=== PATIENT | female | born 1930 | race Caucasian/White ===

== ENCOUNTER 2018-08-04 21:34 | Inpatient (IN) ==
[2018-08-04] MEDS ORDERED: Sod Chloride 0.9% Inj 1,000 ML IV.CONT SCH (23:45)
[2018-08-04] MEDS ORDERED: Morphine Inj 4 MG/ML Vial IV.PUSH ONE (23:49)
--- NOTE | 2018-08-04 23:58 | ED ---
HPI General Chief Complaint: Abdominal Pain Stated Complaint: Abdominal Pain Time Seen by Provider: 08/04/18 23:49 Source: patient Mode of arrival: EMS Limitations: no limitations History of Present Illness HPI narrative: 87-year-old male presents to the emergency department for complaint of severe abdominal pain since 4 PM since eating boiled peanuts. Patient has had nausea without vomiting. No fever or chills. No chest pain or shortness of breath. Denies any diarrhea or bloody stool. Patient also complains of suprapubic pressure and painful urination. Patient reports history of diverticulitis. Denies history of known abdominal aortic aneurysm. Patient takes Eliquis for heart disease but she does not know what type of heart disease she has. Patient called her primary care provider Dr. Herman who told her to come to the emergency room for evaluation. Patient rates her pain 8 /10 in intensity. Patient states pain is constant and unremitting and sudden onset since 4 PM. Patient is unable to identify exacerbating or alleviating factors but does note that laying supine does increase her pain. MD complaint: Reports abdominal pain Onset (ago): hour(s) (Onset since 4 PM) Pain Consistency: constant Location: Reports diffuse and suprapubic Severity: severe Severity scale (1-10): 8 Quality: Reports aching Radiation: Reports RUQ and suprapubic Migration to: Reports RUQ, epigastric and suprapubic; Denies periumbilical, LUQ and bilateral flank Relieving factors: nothing Exacerbating factors: nothing Context: Reports possible food poisoning; Denies foreign travel, sick contacts, recent antibiotic use, recent surgery/procedure, recent injury and history of similar episodes Associated symptoms: Reports nausea; Denies vomiting, diarrhea, fever, chills, constipation, dysuria, hematemesis, hematochezia, melena, hematuria, anorexia and syncope Treatments prior to arrival: Denies NSAIDs, prescription analgesics and antacids Related Data Home Medications Medication Instructions Recorded Confirmed acetaminophen-codeine 1 tab PO Q6H PRN 08/04/18 08/04/18 [Tylenol-Codeine #3] albuterol sulfate 0.63 mg INHALATION Q4H PRN 08/04/18 08/04/18 alprazolam [Xanax] 0.25 mg PO TID PRN 08/04/18 08/04/18 amlodipine 2.5 mg PO DAILY 08/04/18 08/04/18 apixaban [Eliquis] 5 mg PO BID 08/04/18 08/04/18 magnesium oxide 400 mg PO DAILY 08/04/18 08/04/18 omeprazole 20 mg PO DAILY 08/04/18 08/04/18 Allergies Allergy/AdvReac Type Severity Reaction Status Date / Time azithromycin Allergy Severe HIVES Verified 08/04/18 22:51 cephalexin Allergy Severe HIVES Verified 08/04/18 22:51 dexamethasone Allergy Severe HIVES Verified 08/04/18 22:51 doxycycline Allergy Severe HIVES Verified 08/04/18 22:51 erythromycin base Allergy Severe HIVES Verified 08/04/18 22:51 famotidine Allergy Severe HIVES Verified 08/04/18 22:51 lisinopril Allergy Severe HIVES Verified 08/04/18 22:51 minocycline Allergy Severe HIVES Verified 08/04/18 22:51 penicillin G Allergy Severe HIVES Verified 08/04/18 22:51 tigecycline Allergy Severe HIVES Verified 08/04/18 22:51 MAXIDE Allergy Mild HIVES Uncoded 08/04/18 22:51 Review of Systems ROS: all other systems reviewed are negative PMFSH Medical History Medical History Anxiety (Acute) GERD (gastroesophageal reflux disease) (Acute) Hypertension (Acute) Rectal fistula (Acute) TIA (transient ischemic attack) (Acute) Social History Social History Substance History: No History of Abuse Smoking Status: Never smoker How Often Do You Have a Drink Containing Alcohol: Never Recent Travel in [place] within the Last 8 Weeks: No Recent Out of Country Travel within the Last 8 Weeks: No Immunization History Tetanus Immunization: Unsure Exam Narrative Exam Narrative: GENERAL: Well-nourished, well-developed patient. In apparent discomfort holding her abdomen complaining of lower abdominal pain over the suprapubic area. GCS 15. SKIN: Focused skin assessment warm/dry. HEAD: Normocephalic. EYES: No scleral icterus. No injection or drainage. NECK: Supple, trachea midline. No JVD or lymphadenopathy. CARDIOVASCULAR: Regular rate and rhythm without murmurs, gallops, or rubs. RESPIRATORY: Breath sounds equal bilaterally. No accessory muscle use. GASTROINTESTINAL: Abdomen soft, suprapubic tenderness greater than diffuse tenderness to palpation without guarding or rebound non-tense enlarged abdominal girth no palpable pulsatile mass, nondistended. MUSCULOSKELETAL: No cyanosis, or edema. Bilateral radial dorsalis pedis pulses 2+ to palpation. BACK: Nontender without obvious deformity. No CVA tenderness. Course Initial Documented Vital Signs Temperature 97.6 F 08/04/18 22:16 Pulse Rate 64 08/04/18 22:16 Respiratory Rate 20 08/04/18 22:16 Blood Pressure 182/77 H 08/04/18 22:16 Pulse Oximetry 93 L 08/04/18 22:16 Last Documented Vital Signs Temperature 97.6 F 08/04/18 22:16 Pulse Rate 64 08/04/18 22:16 Respiratory Rate 20 08/04/18 22:16 Blood Pressure 182/77 H 08/04/18 22:16 Pulse Oximetry 93 L 08/04/18 22:16 Medical Decision Making MDM Narrative Medical decision making narrative: 87-year-old female with history of hypertension heart disease taking Eliquis twice daily presents with severe abdominal pain progressively worsening since 4 PM. Patient reports symptoms onset after eating peanuts with history of diverticulitis. Patient placed on cardiac rehabilitation specialist IV access obtained specimens collected and sent for resulting upright chest x-ray ordered to assess for subdiaphragmatic free air CT abdomen pelvis ordered patient administered Zofran 4 mg IV and morphine sulfate 2 mg IV room air O2 saturation 93% patient has history of COPD placed on 2 L/min nasal cannula oxygen. Patient given 2 mg of morphine with some improvement and she will present. Patient has COPD and uses supplemental oxygen at night reportedly and O2 saturation noted after morphine to be 88-89% placed on supplemental oxygen with 2 L/min nasal cannula and O2 saturations 94%. CT abdomen pelvis pending. CT abdomen pelvis identifies proximal ileum to be dilated and thickened, small bowel obstruction per reading radiologist; urinalysis unremarkable Patient's case discussed with her primary care provider Dr. Rajeev Herman who will admit her for small bowel obstruction history of atrial fibrillation on Eliquis will place on telemetry as no nausea or vomiting at this time per admitting physician requested for NG tube. Medical Screen Exam Complete: Yes Emergency Medical Condition: Yes Differential Diagnosis Differential Diagnosis: Abdominal pain, diverticulitis, colitis, perforated viscus, ischemic bowel, biliary colic, cholecystitis, pancreatitis, UTI Medical Records Medical records reviewed: Yes I reviewed the patient's medical records. Lab Data Lab results reviewed: Yes I reviewed the patient's lab results. Result diagrams: 08/05/18 00:00 08/05/18 00:00 Lab Results 08/05/18 08/05/18 08/05/18 Range/Units 00:00 00:00 00:00 WBC (4.0-11.0) th/mm3 RBC (4.00-5.30) mil/mm3 Hgb (11.6-15.3) gm/dL Hct (35.0-46.0) % MCV (80.0-100.0) fL MCH (27.0-34.0) pg MCHC (32.0-36.0) % RDW (11.6-17.2) % Plt Count (150-450) th/mm3 MPV (7.0-11.0) fL Neut % (Auto) (16.0-70.0) % Lymph % (Auto) (9.0-44.0) % [place] % (Auto) (0.0-8.0) % Eos % (Auto) (0.0-4.0) % Baso % (Auto) (0.0-2.0) % Neut # (Auto) (1.8-7.7) th/mm3 Lymph # (Auto) (1.0-4.8) th/mm3 [place] # (Auto) (0.0-0.9) th/mm3 Eos # (Auto) (0.0-0.4) th/mm3 Baso # (Auto) (0.0-0.2) th/mm3 WBC Differential Differential Comment PT 12.6 H (9.8-11.6) sec INR 1.2 Ratio APTT 28.3 (24.3-30.1) sec Sodium (136-145) meq/L Potassium (3.5-5.1) meq/L Chloride (98-107) meq/L Carbon Dioxide (21.0-32.0) meq/L Anion Gap (5-15) meq/L BUN (7-18) mg/dL Creatinine (0.50-1.00) mg/dL Estimated GFR (>89) mL/min Random Glucose (74-106) mg/dL Lactic Acid 1.1 (0.4-2.0) mmol/L Calcium (8.5-10.1) mg/dL Magnesium (1.5-2.5) mg/dL Total Bilirubin (0.2-1.0) mg/dL AST (15-37) U/L ALT (10-53) U/L Alkaline Phosphatase (45-117) U/L Total Creatine Kinase (26-192) U/L Troponin I (0.02-0.05) ng/mL Total Protein (6.4-8.2) g/dL Albumin (3.4-5.0) g/dL Lipase (73-393) U/L Urine Color (Yellw/Straw) Urine Clarity (Clear) Urine pH (5.0-8.5) Ur Specific [place] (1.002-1.035) Urine Protein (Neg-Trace) mg/dL Urine Glucose (UA) (Negative) mg/dL Urine Ketones (Negative) mg/dL Urine Occult Blood (Negative) Urine Nitrate (Negative) Urine Bilirubin (Negative) Urine Urobilinogen (Less than 2) mg/dL Ur Leukocyte Esterase (Negative) Urine WBC (0-5) /hpf Ur Squamous Epith Cells (0-5) /hpf Urine Bacteria (None) /hpf Hyaline Casts (0-3) /lpf Urine Mucus (Occasional) /lpf Micro UA Comment Urine Culture Comments Blood Type O Positive Blood Type Recheck Required Antibody Screen Negative 08/05/18 08/05/18 08/05/18 Range/Units 00:00 00:00 00:09 WBC 10.4 (4.0-11.0) th/mm3 RBC 4.87 (4.00-5.30) mil/mm3 Hgb 14.4 (11.6-15.3) gm/dL Hct 43.0 (35.0-46.0) % MCV 88.3 (80.0-100.0) fL MCH 29.5 (27.0-34.0) pg MCHC 33.5 (32.0-36.0) % RDW 17.1 (11.6-17.2) % Plt Count 219 (150-450) th/mm3 MPV 11.0 (7.0-11.0) fL Neut % (Auto) 93.6 H (16.0-70.0) % Lymph % (Auto) 5.2 L (9.0-44.0) % [place] % (Auto) 1.0 (0.0-8.0) % Eos % (Auto) 0.1 (0.0-4.0) % Baso % (Auto) 0.1 (0.0-2.0) % Neut # (Auto) 9.7 H (1.8-7.7) th/mm3 Lymph # (Auto) 0.5 L (1.0-4.8) th/mm3 [place] # (Auto) 0.1 (0.0-0.9) th/mm3 Eos # (Auto) 0.0 (0.0-0.4) th/mm3 Baso # (Auto) 0.0 (0.0-0.2) th/mm3 WBC Differential . Differential Comment Auto diff final PT (9.8-11.6) sec INR Ratio APTT (24.3-30.1) sec Sodium 134 L (136-145) meq/L Potassium 4.1 (3.5-5.1) meq/L Chloride 96 L (98-107) meq/L Carbon Dioxide 28.3 (21.0-32.0) meq/L Anion Gap 10 (5-15) meq/L BUN 19 H (7-18) mg/dL Creatinine 0.87 (0.50-1.00) mg/dL Estimated GFR 62 L (>89) mL/min Random Glucose 137 H (74-106) mg/dL Lactic Acid (0.4-2.0) mmol/L Calcium 9.5 (8.5-10.1) mg/dL Magnesium 1.9 (1.5-2.5) mg/dL Total Bilirubin 1.0 (0.2-1.0) mg/dL AST 17 (15-37) U/L ALT 22 (10-53) U/L Alkaline Phosphatase 102 (45-117) U/L Total Creatine Kinase 82 (26-192) U/L Troponin I Less than 0.02 L (0.02-0.05) ng/mL Total Protein 8.4 H (6.4-8.2) g/dL Albumin 4.0 (3.4-5.0) g/dL Lipase 78 (73-393) U/L Urine Color Light-yellow (Yellw/Straw) Urine Clarity Clear (Clear) Urine pH 7.5 (5.0-8.5) Ur Specific [place] 1.026 (1.002-1.035) Urine Protein 30 H (Neg-Trace) mg/dL Urine Glucose (UA) Negative (Negative) mg/dL Urine Ketones 15 H (Negative) mg/dL Urine Occult Blood Negative (Negative) Urine Nitrate Negative (Negative) Urine Bilirubin Negative (Negative) Urine Urobilinogen 0.2 (Less than 2) mg/dL Ur Leukocyte Esterase Negative (Negative) Urine WBC 0-5 (0-5) /hpf Ur Squamous Epith Cells 0-5 (0-5) /hpf Urine Bacteria Few H (None) /hpf Hyaline Casts 0-3 (0-3) /lpf Urine Mucus Few H (Occasional) /lpf Micro UA Comment Culture not ind Urine Culture Comments Culture not ind Blood Type Blood Type Recheck Antibody Screen Imaging Data Radiologist's impression: Chest X-Ray 08/05/18 00:00 CONCLUSION: No acute cardiopulmonary disease demonstrated. Mild chronic interstitial opacities are stable. Abdomen/Pelvis CT 08/05/18 23:49 CONCLUSION: 1. Approximately 10 cm long segment of severe wall thickening involving the proximal ileum within the pelvic cavity and with associated acute small bowel obstruction. The etiology of wall thickening is uncertain. Infectious, inflammatory and neoplastic etiologies are all in the differential. 2. Associated trace ascites. Nothing organized or drainable. No free air. 3. Diverticulosis of the colon without diverticulitis. 4. Patchy cortical thinning/scarring and cysts of both kidneys. There are also nonobstructing stones of the right kidney. 5. Bilateral adrenal nodularity, indeterminate but statistically most likely benign adenomatous change. 6. Aortoiliac atherosclerosis. No aneurysm seen. 7. Trace lung base atelectasis. 8. Coronary artery calcification. Visualized heart appears enlarged, mostly the left atrium. 9. Small hiatal hernia. Discharge Plan Discharge Disposition Patient Disposition: 30 Still Patient Discharge Condition Condition: Stable Discharge Details Diagnosis: Small bowel obstruction, Ileitis Physicians Team ED Provider: Tita Condon Primary Care Provider: Rajeev Herman Attending Provider: Rajeev Herman Status ED Status: Admitted Patient
[2018-08-05 00:21] LABS: Baso % (Auto) 0.1 % (0.0-2.0); Eos % (Auto) 0.1 % (0.0-4.0); Hemoglobin 14.4 gm/dL (11.6-15.3); Lymph # (Auto) 0.5 th/mm3 (1.0-4.8); Lymph % (Auto) 5.2 % (9.0-44.0); Mean Corpuscular HGB Conc 33.5 % (32.0-36.0); Mean Corpuscular Hemoglobin 29.5 pg (27.0-34.0); Mean Corpuscular Volume 88.3 fL (80.0-100.0); Mono # (Auto) 0.1 th/mm3 (0.0-0.9); Neut # (Auto) 9.7 th/mm3 (1.8-7.7); Neut % (Auto) 93.6 % (16.0-70.0); Platelet Count 219 th/mm3 (150-450); Red Blood Count 4.87 mil/mm3 (4.00-5.30); Red Cell Distribution Width 17.1 % (11.6-17.2); White Blood Count 10.4 th/mm3 (4.0-11.0)
[2018-08-05 00:34] LABS: Activated Partial Thrombo Time 28.3 sec (24.3-30.1); INR 1.2 Ratio; Prothrombin Time 12.6 sec (9.8-11.6)
[2018-08-05 00:39] LABS: Alanine Aminotransferase 22 U/L (10-53); Anion Gap 10 meq/L (5-15); Aspartate Aminotransferase 17 U/L (15-37); Blood Urea Nitrogen 19 mg/dL (7-18); Calcium 9.5 mg/dL (8.5-10.1); Carbon Dioxide 28.3 meq/L (21.0-32.0); Chloride 96 meq/L (98-107); Glomerular Filtration Rate 62 mL/min (>89); Glucose,Random 137 mg/dL (74-106); Lipase 78 U/L (73-393); Magnesium 1.9 mg/dL (1.5-2.5); Potassium 4.1 meq/L (3.5-5.1); Sodium 134 meq/L (136-145)
[2018-08-05 00:43] LABS: Alkaline Phosphatase 102 U/L (45-117); Total Protein 8.4 g/dL (6.4-8.2)
--- NOTE | 2018-08-05 00:45 | XR ---
EXAM DATE: 08/05/2018 12:27 AM EDT AGE/SEX: 87 years / Female INDICATIONS: Low abdomen and pelvic pain. CLINICAL DATA: This is the patient's initial encounter. Patient reports that signs and symptoms have been present for 1 day and indicates a pain score of 0/10. MEDICAL/SURGICAL HISTORY: None. None. COMPARISON: [facility], XR CHEST UPRIGHT, SINGLE VIEW, 10/21/2017. . FINDINGS: Mild, chronic diffuse interstitial opacities involving both lungs. No acute pneumonia. No pleural eff usion or pneumothorax. Heart size stable, upper limits of normal. Thoracic aorta is tortuous and atherosclerotic. CONCLUSION: No acute cardiopulmonary disease demonstrated. Mild chronic interstitial opacities are stable. Electronically signed by: Fidel Washington MD 08/05/2018 12:44 AM EDT
[2018-08-05 00:50] LABS: Creatine Kinase 82 U/L (26-192)
--- NOTE | 2018-08-05 01:33 | CT ---
EXAM DATE: 08/05/2018 1:13 AM EDT AGE/SEX: 87 years / Female INDICATIONS: Abdominal pain with nausea and vomiting. CLINICAL DATA: This is the patient's initial encounter. Patient reports that signs and symptoms have been present for 1 day and indicates a pain score of 10/10. MEDICAL/SURGICAL HISTORY: Gastroesophageal reflux disease. Hypertension. Cerebrovascular dise ase. None. ORAL CONTRAST: No oral contrast ingested. RADIATION DOSE: 12.60 CTDI (mGy) COMPARISON: No prior exams available for comparison. TECHNIQUE: Multiple contiguous axial images were obtained through the abdomen and pelvis following b olus infusion of 90 ml Omnipaque 350 (iohexol) nonionic water-soluble contrast as a single exam dos e. No oral contrast ingested. Using automated exposure control and adjustment of the mA and/or kV ac cording to patient size, radiation dose was kept as low as reasonably achievable to obtain optimal di agnostic quality images. DICOM format image data is available electronically for review and comparis on. FINDINGS: There is an acute small bowel obstruction that appears to be at the level of the proximal ileum. Ther e is a roughly 10 cm long segment of thick walled ileum in the mid to upper central pelvic cavity, se luis a 2 image 53 and series 602 image 62. The distal ileum is decompressed. The colon is decompressed. There are diverticula of the descending and sigmoid portions of the colon but no diverticulitis. Mes enteric edema and trace ascites/free fluid present. Nothing organized or drainable. I don't see any f ree air. Normal appendix. Small hiatal hernia. The liver, spleen and pancreas are within normal limits. There is bilateral adrenal nodularity. Patch y cortical thinning/scarring and scattered cysts are seen of both kidneys. Most of the cysts are smal l but there is a 4.6 cm cyst of the left mid zone. There are nonobstructing stones of the right kidne y and measure 3 mm of the upper pole and 6 mm of the mid zone. Trace atelectasis of the visualized lung bases. There is coronary artery calcification. Also atherosc lerosis of the abdominal aorta and iliac arteries. No acute bony abnormality demonstrated. CONCLUSION: 1. Approximately 10 cm long segment of severe wall thickening involving the proximal ileum within th e pelvic cavity and with associated acute small bowel obstruction. The etiology of wall thickening is uncertain. Infectious, inflammatory and neoplastic etiologies are all in the differential. 2. Associated trace ascites. Nothing organized or drainable. No free air. 3. Diverticulosis of the colon without diverticulitis. 4. Patchy cortical thinning/scarring and cysts of both kidneys. There are also nonobstructing stones of the right kidney. 5. Bilateral adrenal nodularity, indeterminate but statistically most likely benign adenomatous mims ge. 6. Aortoiliac atherosclerosis. No aneurysm seen. 7. Trace lung base atelectasis. 8. Coronary artery calcification. Visualized heart appears enlarged, mostly the left atrium. 9. Small hiatal hernia. Electronically signed by: Fidel Washington MD 08/05/2018 1:32 AM EDT
[2018-08-05] MEDS ORDERED: Naloxone Inj 0.4 MG/ML Vial IV.PUSH PRN (02:03)
[2018-08-05] MEDS ORDERED: Morphine Inj 4 MG/ML Vial IV.PUSH ONE (02:06)
[2018-08-05 02:14] LABS: Bilirubin,Urine Negative (Negative); Clarity,Urine Clear (Clear); Glucose,Urine (UA) Negative (Negative); Leukocyte Esterase,Urine Negative (Negative); Nitrite,Urine Negative (Negative); PH,Urine 7.5 (5.0-8.5); Urobilinogen,Urine 0.2 mg/dL (Less than 2)
[2018-08-05 02:57] LABS: Bacteria,Urine Few /hpf; Specific Gravity,Urine 1.026 (1.002-1.035); Squamous Epithelial Cell,Urine 0-5 /hpf (0-5); WBC,Urine 0-5 /hpf (0-5)
[2018-08-05 02:58] LABS: Hyaline Casts,Urine 0-3 /lpf (0-3)
[2018-08-05 02:59] LABS: Mucus,Urine Few /lpf (Occasional)
[2018-08-05] MEDS: Sod Chloride 0.9% Inj 1,000 ML IV.CONT SCH ×2 (03:18→13:40)
[2018-08-05] MEDS: Pantoprazole Inj 40 MG Vial IV.PUSH SCH (03:19)
[2018-08-05] MEDS: Morphine Inj 4 MG/ML Vial IV.PUSH PRN ×3 (06:34→21:00)
[2018-08-05] MEDS ORDERED: Labetalol HCl Inj 100 MG/20 ML Vial IV.PUSH PRN (09:17)
[2018-08-05] MEDS ORDERED: Sodium Chloride 0.9% 2 ML Flush PRN IV.FLUSH (09:25)
--- NOTE | 2018-08-05 09:26 | CT ---
EXAM DATE: 08/05/2018 7:35 AM EDT AGE/SEX: 87 years / Female INDICATIONS: Abdominal pain, obstruction CLINICAL DATA: This is the patient's initial encounter. Patient reports that signs and symptoms have been present for 1 day and indicates a pain score of 7/10. MEDICAL/SURGICAL HISTORY: Gastroesophageal reflux disease. Cerebrovascular disease. None. RADIATION DOSE: . CTDI (mGy) ; Reconstructed from previous dataset, no dose COMPARISON: [facility] [place], [place], CT ABDOMEN & PELVIS W CONTRAST, 08/05/2018. . TECHNIQUE: Volumetric scanning was performed using a multi-row detector CT scanner during bolus infu pascale of 100 ml Omnipaque 350 (iohexol) nonionic water-soluble contrast as a cumulative dose for [facility] exams. . The data was post processed with a variety of visualization algorithms including full volume maximum intensity projection, multi-planar sliding thin slab reformation, curved planar reform ation, and surface rendering techniques. Using automated exposure control and adjustment of the mA a nd/or kV according to patient size, radiation dose was kept as low as reasonably achievable to obtain optimal diagnostic quality images. DICOM format image data is available electronically for review a nd comparison. FINDINGS: Angiographic Findings: Abdominal Aorta: Diffuse arthroscopic calcifications of the infrarenal aorta with focal mild ectasia measuring up to 1.8 cm distally. Iliacs: Iliac arteries are heavily calcified with tandem mild stenoses in the common iliac and proxim al external iliac arteries bilaterally. Hypogastrics are diffusely diseased but patent. Visualized fe moral arteries are patent. Renal Arteries: Single left renal artery. Duplicated right renal arteries. Mild stenosis of the poste rior right renal artery. Otherwise, renal arteries are patent. Mesenteric Arteries: Celiac artery is patent with standard celiac anatomy. 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 LFETCHER is patent. General Findings: LOWER LUNGS: The visualized lower lungs are clear. LIVER: Mild diffusely decreased hepatic density with subcentimeter hypodense lesions in the left hep atic lobe which are too small to characterize. No calcified gallstones. SPLEEN: Homogeneous density without enlargement. PANCREAS: Unremarkable without mass or calcification. KIDNEYS: Multiple bilateral renal cysts some of which are too small to fully characterize. Nonobstru cting 4 mm calyceal calculus in the posterior right mid kidney. ADRENAL GLANDS: Adreniform enlargement of the regional glands bilaterally. BOWEL/MESENTERY: Abnormal. Redemonstration of multiple loops of fluid-filled distended small bowel i n the lower abdomen with a focal sacral segment of ileum in the mid to upper central pelvis. There is no pneumatosis or free air. There is prominent colonic diverticulosis. Otherwise, colon is decompres sed but does contain air and feces. Appendix is normal. There is no focal drainable fluid collection. Trace free fluid is noted in the pelvis. ABDOMINAL WALL: Intact. RETROPERITONEUM: No evidence of adenopathy in the retrocrural, para-aortic, or deep pelvic regions. BLADDER: Contours are smooth. REPRODUCTIVE: No abnormal masses or calcifications seen. BONY STRUCTURES: Degenerative changes of the lower lumbar spine. No abnormal lytic or blastic bony l esions. CONCLUSION: 1. 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 Celiac and FLETCHER are patent. Central SMV and portal ve in are patent. Therefore, mesenteric ischemia as an etiology for patient's small bowel obstruction an d proximal ileitis is unlikely. 2. 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 3. Remainder of the exam is unchanged from earlier abdominal CT exam with redemonstration of acute s mall bowel obstruction secondary to severe wall thickening involving the proximal ileum in the centra l pelvis. No evidence for perforation, bowel infarction or abscess at this time. Electronically signed by: Sam Stockton MD 08/05/2018 9:25 AM EDT
--- NOTE | 2018-08-05 10:09 | MH ---
cc: Rajeev Herman MD DATE OF ADMISSION: 08/05/2018 CHIEF COMPLAINT: Abdominal pain, nausea, vomiting, small-bowel obstruction. HISTORY OF PRESENT ILLNESS: This 87-year-old white female well-known to undersigned physician has a history of chronic atrial fibrillation, hypertension, gastroesophageal reflux disease, and COPD. The patient contacted the undersigned physician on the evening prior to admission complaining of abdominal pain that began approximately noontime on the day prior to admission. She states that she had abdominal pain in the suprapubic and periumbilical area and with waves of which would come and go. It was an intense cramping pain. She had some initial nausea, but no emesis. She had eaten some boiled peanuts just prior to the onset of the symptoms but otherwise she had not eaten anything that day. The patient reported that she had a bowel movement on the day prior to admission, which was normal without any blood, mucus, any diarrhea or constipation. The patient's symptoms continued to worsen throughout the day and she had 3 episodes of emesis at home. At that time, she was instructed to present to the emergency department for further evaluation and treatment. She denies any fever or chills, but she felt warm and diaphoretic. She has no chest pain, palpitations, lightheadedness, dizziness, headaches, visual changes, lateralizing neurologic deficits, urinary urgency, or dysuria. She had no hematuria, hemoptysis, hematemesis, melena, or hematochezia. The patient does have chronic urinary incontinence. 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 She has chronic atrial fibrillation/flutter, hyperlipidemia, GERD, diverticulosis, and hypothyroidism. PAST SURGICAL HISTORY: Status post a D and C in 1997. She had bilateral cataract removal with lens implants in 2016. CURRENT MEDICATIONS: B complex 1 tablet daily, calcium with vitamin D 500 mg/200 units 1 tablet daily, magnesium oxide 400 mg daily, levothyroxine 50 mcg daily, Eliquis 5 mg twice daily, digoxin 0.125 mg twice daily, amlodipine 2.5 mg daily, albuterol sulfate 2.5 mg per 3 mL at 3 mL by nebulizer 3 times a day as needed, omeprazole 20 mg daily, alprazolam 0.25 mg 1/2 to 1 tablet 3 times a day as needed for anxiety, and Tylenol No. 3 one to 2 tablets 3 times a day as needed for arthritic pain. ALLERGIES: AMPICILLIN, AXID, CEPHALEXIN, DEXAMETHASONE, ERYTHROMYCIN, LISINOPRIL, DYAZIDE, PEPCID, AND TETRACAINE. FAMILY HISTORY: Noncontributory. SOCIAL HISTORY: She is . She lives alone. She smoked at least 1 pack of cigarettes a day for over 50 years. She has not smoked in almost 5 years. She does not consume alcohol. She has a son who lives locally. REVIEW OF SYSTEMS: Negative except as outlined above. PHYSICAL EXAMINATION: VITAL SIGNS: Upon arrival to the emergency department, the patient's blood pressure is 182/77 with a heart rate of 64, respirations are 20, temperature 97.6 degrees Fahrenheit, oxygen saturation on room air was 93%. At the current time, her blood pressure is 171/96 with a heart rate 74, respirations 18, oxygen saturation 100% on 2 liters per minute per nasal cannula. GENERAL: This is an overweight, elderly, white female lying in bed in mild distress due to abdominal discomfort. HEENT: The pupils are equal, round, and reactive to light. Extraocular movements are intact. Sclerae are anicteric. Conjunctivae pink. Bilateral lens implants in place. Mouth and throat reveal dry mucous membranes. No dentition present. Posterior oropharynx reveals no erythema or exudates. NECK: Supple without lymphadenopathy, JVD, bruits, or thyromegaly. There is straightening of the normal lordosis of the cervical spine with decreased range of motion in all directions. CARDIOVASCULAR: Shows irregular rate and rhythm without murmurs, rubs, or gallops. LUNGS: Reveal moderately reduced air exchange bilaterally, but no wheezes, rhonchi, or rales. ABDOMEN: Moderately distended and tender in the periumbilical area extending into the suprapubic area. There are no bowel sounds present. No masses. The abdomen is soft. No HSM. No CVAT. GENITOURINARY AND RECTAL: Deferred. LOWER EXTREMITIES: Reveal 1+ distal pulses. No calf tenderness or Homans sign. SKIN: Warm and dry. No significant rashes or lesions. Turgor good. No pallor. NEUROLOGIC: The patient is awake and alert, oriented x 3. Speech intact. Cranial nerves intact. There is some mild short-term memory deficits for what has occurred since being in the emergency department, but the patient has received morphine several times. Otherwise, mental status is at baseline. DIAGNOSTIC DATA: Her white blood count is 10.4, hemoglobin 14.4, hematocrit 43.0, platelet count 219,000. INR 1.2. APTT 28.3. The chemistries were significant for sodium 134, chloride 96, BUN 19, which is elevated with a creatinine normal at 0.87. Estimated GFR is 62. The total protein was high at 8.4, but albumin normal at 4.0. Troponin was less than 0.02. CK was 82, which was within normal limits. Lactic acid was 1.1. Urinalysis revealed a specific gravity of 1.026, pH of 7.5, 30 mg percent protein, 50 mg percent ketones, 0-5 WBCs per high power field, few bacteria. Culture was not indicated. The patient had a CT scan of the abdomen and pelvis with IV contrast only. It revealed approximately 10 cm long segment of severe wall thickening involving the proximal ileum within the pelvic cavity and with associated acute small-bowel obstruction. The etiology of wall thickening is uncertain. Infectious inflammatory, and neoplastic etiologies are all in the differential. There was trace ascites, diverticulosis without diverticulitis, patchy cortical thinning and scarring and cysts in both kidneys. There are also nonobstructing stones in the right kidney. Bilateral adrenal nodularity, which was indeterminate and aortoiliac atherosclerosis, but no aneurysm seen. There was trace lung base atelectasis, coronary artery calcifications. The heart visually appeared enlarged and there was a small hiatal hernia. The chest x-ray revealed no acute cardiopulmonary disease. There are mild chronic diffuse interstitial opacities involving both lungs. The heart size was stable in the upper limits of normal. A CTA of the abdomen and pelvis is pending at this time. ASSESSMENT AND PLAN: 1. This 87-year-old white female who presented with abdominal pain, nausea, and vomiting. CT scan reveals a 10 cm segment of the proximal ileum with significant wall thickness and a proximal small-bowel obstruction. Possible etiologies include ischemia versus infection versus malignancy. Since the patient has a normal white blood cell count and no fever, it is less likely to be infectious in etiology. The patient does have a significant smoking history and evidence of aortoiliac atherosclerosis; therefore, ischemia of the small bowel is a possibility. I have ordered the CTA of the abdomen and pelvis and am awaiting the results. I have consulted gastroenterology for assistance with further evaluation and treatment. The patient was made n.p.o. and provided with IV fluids. She is provided with antiemetics and opioid analgesics for nausea and pain. I have not placed an NG tube at this time as she does not have significant distention of the small bowel and has had no repeated emesis. May need to consider a general surgery consultation if ischemia is suspected. 2. History of chronic obstructive pulmonary disease. The patient will remain on oxygen at 2 liters per minute per nasal cannula. She normally wears the oxygen at night every night. She will be continued with albuterol nebulizer treatments and will monitor respiratory status closely. 3. History of chronic atrial fibrillation. The patient clinically is in atrial fibrillation with controlled ventricular response. Eliquis has been held since yesterday morning. We will hold off on anticoagulation at this time until it is determined if the patient will need any sort of surgical intervention. The patient normally receives digoxin orally. Her current heart rate is 74. We will order a digoxin level to be performed and provide IV digoxin if needed. 4. Gastroesophageal reflux disease. The patient will be placed on pantoprazole IV until she can take p.o. again. 5. Hypothyroidism. Hold levothyroxine for now. If patient is going to be n.p.o. for a prolonged period of time, we will need to consider IV levothyroxine. 6. Hypertension. Blood pressure has been variable anywhere between 120 and 180 systolic, depending on the patient's level of pain and distress. SHE DOES NOT TOLERATE HELIO INHIBITORS DUE TO RASH. At this point, we will follow blood pressure, if necessary provide her with clonidine patch. We will provide the patient with IV beta gerda if needed for hypertension, we will need to monitor heart rate closely to prevent any bradycardia. I have explained the patient's condition and plan of care to her. She expresses understanding and agrees to the plan of care. MD AIDEE Ford/mikala , 09:13 AM , 09:32 AM
--- NOTE | 2018-08-05 16:26 | ECG ---
Date Performed: 08/05/2018 Time Performed: 03:31:09 PTAGE: 87 years EKG: ATRIAL FIBRILLATION MODERATE INTRAVENTRICULAR CONDUCTION DELAY NONSPECIFIC ST & T-WAVE ABNO RMALITY ABNORMAL RHYTHM ECG PREVIOUS TRACING : 04/05/2015 20.11 Since the previous tracing, no significant change noted DOCTOR: Ignacio Meyers Interpretating Date/Time 08/05/2018 16:25:44
--- NOTE | 2018-08-05 17:19 | P.CONGS ---
[facility] Gen Surgery Consult Note Consult date: 08/05/18 Reason for consult: abdominal pain Requesting physician: Rajeev Herman Narrative: This is an 87 year old female with a past medical history of atrial fibrillation on Eliquis, AAA, hypertension, TIA, rectal fistula repair, GERD and anxiety. The patient came to the ED after she developed acute onset of abdominal pain about 4PM on Thursday. The patient states that she made boiled peanuts and ate a lot and developed the abdominal pain shortly after that. She reports associated nausea with three episodes of vomiting. She reports chills without fevers. Her last bowel movement was Thursday morning and it was normal , soft and brown. A CT abdomen/pelvis was obtained which shows a 10 CM segment of severe wall thickening involving the proximal ileum in the pelvic cavity with associated small bowel obstruction. A CTA of the abdomen was obtained that is concerning for mesenteric ischemia. The patient was started on IVF. Her lactic acid is normal. On exam, the patient is comfortable with much less abdominal pain than when she arrived to the ED. A General Surgery consultation has been requested. Review of Systems All other systems reviewed negative except as stated in [facility] PMF[facility] - History History Provided By: Patient - Medical History Medical History: Medical History (Last Reviewed 08/05/18 @ 17:14 by BRITTANIE Martinez) Anxiety GERD (gastroesophageal reflux disease) Hypertension Rectal fistula TIA (transient ischemic attack) - Surgical History Surgical History: Surgical History (Last Updated 08/05/18 @ 17:14 by BRITTANIE Martinez) History of tonsillectomy - Tobacco History Second Hand Smoke Exposure: No Smoking Status: Former smoker Tobacco Type: Cigarettes - Alcohol History How Often Do You Have a Drink Containing Alcohol: Never - Substance Use History Substance History: No History of Abuse - Travel History Recent Travel in the [place] Within the Last 8 Weeks: No Recent Travel Out of the Country Within the Last 8 Weeks: No - Immunization History Tetanus Immunization: Unsure Hx Influenza Vaccine This Season: No Medications and Allergies Allergies Allergy/AdvReac Type Severity Reaction Status Date / Time azithromycin Allergy Severe HIVES Verified 08/04/18 22:51 cephalexin Allergy Severe HIVES Verified 08/04/18 22:51 dexamethasone Allergy Severe HIVES Verified 08/04/18 22:51 doxycycline Allergy Severe HIVES Verified 08/04/18 22:51 erythromycin base Allergy Severe HIVES Verified 08/04/18 22:51 famotidine Allergy Severe HIVES Verified 08/04/18 22:51 lisinopril Allergy Severe HIVES Verified 08/04/18 22:51 minocycline Allergy Severe HIVES Verified 08/04/18 22:51 penicillin G Allergy Severe HIVES Verified 08/04/18 22:51 tigecycline Allergy Severe HIVES Verified 08/04/18 22:51 MAXIDE Allergy Mild HIVES Uncoded 08/04/18 22:51 Home Medications Medication Instructions Recorded Confirmed Type acetaminophen-codeine 1 tab PO Q6H PRN 08/04/18 08/04/18 History [Tylenol-Codeine #3] albuterol sulfate 0.63 mg INHALATION Q4H PRN 08/04/18 08/04/18 History alprazolam [Xanax] 0.25 mg PO TID PRN 08/04/18 08/04/18 History magnesium oxide 400 mg PO DAILY 08/04/18 08/04/18 History omeprazole 20 mg PO DAILY 08/04/18 08/04/18 History Active Medications: Active Medications Albuterol (Albuterol Neb (Ciaran)) 2.5 mg NEB TID NEB CIARAN Last Admin: 08/05/18 12:22 Dose: 2.5 mg Sodium Chloride (Ns Inj) 1,000 mls @ 100 mls/hr IV.CONT .Q10H CIARAN Last Admin: 08/05/18 13:40 Dose: 100 mls/hr Labetalol HCl (Trandate Inj) 10 mg IV.PUSH Q4H PRN PRN Reason: SBP>180, DBP>100, HR>65 Last Admin: 08/05/18 09:35 Dose: 10 mg Morphine Sulfate (Morphine Inj) 1 mg IV.PUSH Q3H PRN PRN Reason: PAIN 3-5; IF UABLE TO TAKE PO Morphine Sulfate (Morphine Inj) 3 mg IV.PUSH Q3H PRN PRN Reason: PAIN 6-10;IF UNABLE TO TAKE PO Last Admin: 08/05/18 09:34 Dose: 3 mg Naloxone HCl (Narcan Inj) 0.4 mg IV.PUSH UNSCH PRN PRN Reason: SEE LABEL COMMENTS Ondansetron HCl (Zofran Inj) 4 mg IV.PUSH Q6H PRN PRN Reason: NAUSEA OR VOMITING Pantoprazole Sodium (Protonix Inj) 40 mg IV.PUSH Q24H CIARAN Last Admin: 08/05/18 03:19 Dose: 40 mg Sodium Chloride (Ns Flush) 2 ml IV.FLUSH BID CIARAN Sodium Chloride (Ns Flush) 2 ml IV.FLUSH PRN PRN PRN Reason: FLUSH AFTER USING IV ACCESS Exam Vital signs: Vital Signs 08/04/18 22:16 08/05/18 03:20 08/05/18 03:21 Temperature 97.6 F Pulse Rate 64 72 Respiratory Rate 20 16 Blood Pressure 182/77 H 125/73 Pulse Oximetry 93 L 100 100 08/05/18 05:53 08/05/18 07:25 08/05/18 09:00 Temperature Pulse Rate 74 80 Respiratory Rate 18 22 Blood Pressure 171/96 H 192/88 H Pulse Oximetry 98 95 08/05/18 09:30 08/05/18 09:42 08/05/18 12:00 Temperature 97.6 F Pulse Rate 56 L Respiratory Rate 17 Blood Pressure 209/87 H 139/65 121/70 Pulse Oximetry 97 08/05/18 12:24 Temperature Pulse Rate 80 Respiratory Rate 16 Blood Pressure Pulse Oximetry Intake & Output 08/04/18 08/05/18 08/05/18 18:59 06:59 18:59 Intake Total 1999 Balance 1999 Weight 79.379 kg Intake: IV 1999 NS Inj 1,000 ML @ 100 mls/hr IV 1999 .CONT .Q10H CIARAN Rx#:[id number] Other: Date of Last Bowel Movement 08/04/18 Narrative: GENERAL: 87 year old female resting in bed in no acute distress. SKIN: Warm and dry. HEAD: Atraumatic. Normocephalic. EYES: Pupils equal and round. No scleral icterus. No injection or drainage. ENT: No nasal bleeding or discharge. Mucous membranes pink and moist. NECK: Trachea midline. CARDIOVASCULAR: Regular rate and rhythm. RESPIRATORY: No accessory muscle use. Clear to auscultation. Breath sounds equal bilaterally. GASTROINTESTINAL: Abdomen soft, mild tenderness in lower quadrants to palpation ; moderate distention. No visible scars or hernias. MUSCULOSKELETAL: Extremities without clubbing, cyanosis, or edema. No obvious deformities. NEUROLOGICAL: Awake and alert. No obvious cranial nerve deficits. Motor grossly within normal limits. Five out of 5 muscle strength in the arms and legs. Normal speech. PSYCHIATRIC: Appropriate mood and affect; insight and judgment normal. Results - Labs 08/15/18 06:35 08/17/18 04:41 Laboratory Results - last 24 hr 08/05/18 08/05/18 08/05/18 00:00 00:00 00:00 WBC RBC Hgb Hct MCV MCH MCHC RDW Plt Count MPV Neut % (Auto) Lymph % (Auto) [place] % (Auto) Eos % (Auto) Baso % (Auto) Neut # (Auto) Lymph # (Auto) [place] # (Auto) Eos # (Auto) Baso # (Auto) WBC Differential Differential Comment PT 12.6 H INR 1.2 APTT 28.3 Sodium Potassium Chloride Carbon Dioxide Anion Gap BUN Creatinine Estimated GFR Random Glucose Lactic Acid 1.1 Calcium Magnesium Total Bilirubin AST ALT Alkaline Phosphatase Total Creatine Kinase Troponin I Total Protein Albumin Lipase Urine Color Urine Clarity Urine pH Ur Specific [place] Urine Protein Urine Glucose (UA) Urine Ketones Urine Occult Blood Urine Nitrate Urine Bilirubin Urine Urobilinogen Ur Leukocyte Esterase Urine WBC Ur Squamous Epith Cells Urine Bacteria Hyaline Casts Urine Mucus Micro UA Comment Ur Microscopic Review Urine Culture Comments Blood Type O Positive Blood Type Recheck Required Antibody Screen Negative 08/05/18 08/05/18 08/05/18 00:00 00:00 00:09 WBC 10.4 RBC 4.87 Hgb 14.4 Hct 43.0 MCV 88.3 MCH 29.5 MCHC 33.5 RDW 17.1 Plt Count 219 MPV 11.0 Neut % (Auto) 93.6 H Lymph % (Auto) 5.2 L [place] % (Auto) 1.0 Eos % (Auto) 0.1 Baso % (Auto) 0.1 Neut # (Auto) 9.7 H Lymph # (Auto) 0.5 L [place] # (Auto) 0.1 Eos # (Auto) 0.0 Baso # (Auto) 0.0 WBC Differential . Differential Comment Auto diff final PT INR APTT Sodium 134 L Potassium 4.1 Chloride 96 L Carbon Dioxide 28.3 Anion Gap 10 BUN 19 H Creatinine 0.87 Estimated GFR 62 L Random Glucose 137 H Lactic Acid Calcium 9.5 Magnesium 1.9 Total Bilirubin 1.0 AST 17 ALT 22 Alkaline Phosphatase 102 Total Creatine Kinase 82 Troponin I Less than 0.02 L Total Protein 8.4 H Albumin 4.0 Lipase 78 Urine Color Light-yellow Urine Clarity Clear Urine pH 7.5 Ur Specific [place] 1.026 Urine Protein 30 H Urine Glucose (UA) Negative Urine Ketones 15 H Urine Occult Blood Negative Urine Nitrate Negative Urine Bilirubin Negative Urine Urobilinogen 0.2 Ur Leukocyte Esterase Negative Urine WBC 0-5 Ur Squamous Epith Cells 0-5 Urine Bacteria Few H Hyaline Casts 0-3 Urine Mucus Few H Micro UA Comment Culture not ind Ur Microscopic Review Not Reportable Urine Culture Comments Culture not ind Blood Type Blood Type Recheck Antibody Screen 08/05/18 13:56 WBC RBC Hgb Hct MCV MCH MCHC RDW Plt Count MPV Neut % (Auto) Lymph % (Auto) [place] % (Auto) Eos % (Auto) Baso % (Auto) Neut # (Auto) Lymph # (Auto) [place] # (Auto) Eos # (Auto) Baso # (Auto) WBC Differential Differential Comment PT INR APTT Sodium Potassium Chloride Carbon Dioxide Anion Gap BUN Creatinine Estimated GFR Random Glucose Lactic Acid 1.4 Calcium Magnesium Total Bilirubin AST ALT Alkaline Phosphatase Total Creatine Kinase Troponin I Total Protein Albumin Lipase Urine Color Urine Clarity Urine pH Ur Specific [place] Urine Protein Urine Glucose (UA) Urine Ketones Urine Occult Blood Urine Nitrate Urine Bilirubin Urine Urobilinogen Ur Leukocyte Esterase Urine WBC Ur Squamous Epith Cells Urine Bacteria Hyaline Casts Urine Mucus Micro UA Comment Ur Microscopic Review Urine Culture Comments Blood Type Blood Type Recheck Antibody Screen - Imaging Imaging: ITS Impressions Abdomen/Pelvis CTA 08/05/18 00:00 CONCLUSION: 1. 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 Celiac and FLETCHER are patent. Central SMV and portal vein are patent. Therefore, mesenteric ischemia as an etiology for patient's small bowel obstruction and proximal ileitis is unlikely. 2. 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 3. Remainder of the exam is unchanged from earlier abdominal CT exam with redemonstration of acute small bowel obstruction secondary to severe wall thickening involving the proximal ileum in the central pelvis. No evidence for perforation, bowel infarction or abscess at this time. Chest X-Ray 08/05/18 00:00 CONCLUSION: No acute cardiopulmonary disease demonstrated. Mild chronic interstitial opacities are stable. Abdomen/Pelvis CT 08/05/18 23:49 CONCLUSION: 1. Approximately 10 cm long segment of severe wall thickening involving the proximal ileum within the pelvic cavity and with associated acute small bowel obstruction. The etiology of wall thickening is uncertain. Infectious, inflammatory and neoplastic etiologies are all in the differential. 2. Associated trace ascites. Nothing organized or drainable. No free air. 3. Diverticulosis of the colon without diverticulitis. 4. Patchy cortical thinning/scarring and cysts of both kidneys. There are also nonobstructing stones of the right kidney. 5. Bilateral adrenal nodularity, indeterminate but statistically most likely benign adenomatous change. 6. Aortoiliac atherosclerosis. No aneurysm seen. 7. Trace lung base atelectasis. 8. Coronary artery calcification. Visualized heart appears enlarged, mostly the left atrium. 9. Small hiatal hernia. CT scan - abdomen: image reviewed Assessment and Plan - Assessment (1) Small bowel obstruction Code(s): K56.609 - Unspecified intestinal obstruction, unspecified as to partial versus complete obstruction Status: Resolved Plan: 87 year old female with abdominal pain; SBO vs gastroenteritis vs adhesions -Unlikely to be mesenteric ischemia -KUB in AM -Recommend NPO -Recommend NGT placement to LIWS if nausea/vomiting occur -IVF -Lactic acid normal -Will attempt non operative management at this time -Thank you for this consult; We will continue to follow - Plan Discussed Condition With: Dr. Tyler Winters RN Ms. Joya - Attending Attestation The exam, history, and the medical decision-making described in the above note were completed with the assistance of the mid-level provider. I reviewed and agree with the findings presented. I attest that I had a [id number] encounter with the patient on the same day, and personally performed and documented my assessment and findings in the medical record. Patient with N/V abd pain, gastroenteritis vs SBO Abdominal exam soft, no peritonitis Recommend continue non-operative management, ABX to cover gastroenteritis, follow for possible developing SBO if shows signs of bowel ischemia or peritonitis will need surgery d/w patient
[2018-08-05] MEDS: Sodium Chloride 0.9% 2 ML Flush BID IV.FLUSH SCH (21:03)
--- NOTE | 2018-08-05 21:13 | MB ---
cc: Hussein Higuera MD DATE: 08/05/2018 REASON FOR GASTROINTESTINAL CONSULTATION: Evaluation of a small-bowel obstruction, thickened proximal terminal ileum noted imaging studies. HISTORY OF PRESENT ILLNESS: A pleasant 87-year-old female who has a history of atrial fibrillation, on anticoagulation therapy with Eliquis therapy. She has a history of hypertension, previous TIA, CVA, GERD, anxiety and AAA in the past. She developed acute abdominal pain in the mid to lower abdomen on Thursday after she had eaten some boiled peanuts she prepared at home. Shortly thereafter, she developed pain. She had nausea and vomiting on several occasions. This has now improved. She is feeling better. Her abdominal pain has subsided. She was receiving morphine for abdominal pain as well. Yesterday, she did have a bowel movement. Today, she has not had any flatus or bowel movements per se. She has been seen by the surgical staff on consultation. A CT of the abdomen initially revealed a 10 cm segment of severe wall thickening involving the proximal ileum with associated bowel obstruction. A CTA was also obtained. 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 The FLETCHER and celiac region appeared to be patent and the radiologist's impression was that this was not contributory to mesenteric ischemia. Prior to this event, she was moving her bowels well. She denies any rectal bleeding. Her weight has been stable. She has had no significant travel history. PAST MEDICAL HISTORY: As mentioned above. FAMILY HISTORY: There is no history of colorectal cancer or significant GI disease. ALLERGIES: AZITHROMYCIN, CEPHALEXIN, DEXAMETHASONE, DOXYCYCLINE. SOCIAL HISTORY: She denies alcohol, smoking or illicit drug use. MEDICATIONS: Include: 1. Albuterol. 2. Labetalol. 3. Morphine. 4. Naloxone. 5. Ondansetron. 6. Pantoprazole. REVIEW OF SYSTEMS: A 12-point review of systems is as stated in the HPI. She denies any fever or chills. She denies any travel history outside the [place]. She has not had any diarrheal illnesses of late. No prior events of abdominal pain. No small-bowel obstructions as such mentioned in the HPI. PHYSICAL EXAMINATION: GENERAL: Pleasant, well-developed female, alert and oriented x 3, in no acute distress. VITAL SIGNS: Currently stable. She is afebrile. SKIN: Warm and dry. No unusual rashes. HEENT: Normocephalic, atraumatic. Sclerae are anicteric. Oral mucosa is dry. NECK: Supple. No JVD, masses or nodes. CARDIAC: S1, S2, regular rhythm. CHEST: Clear to A and P. ABDOMEN: There is mild distention and tympany noted. No rebound tenderness. Bowel sounds are present throughout all quadrants. No obvious masses noted. RECTAL: Deferred. EXTREMITIES: Without clubbing, cyanosis or edema. NEUROLOGIC: She is grossly intact without focal deficits. IMPRESSION: 1. Small-bowel obstruction. 2. Markedly thickened proximal terminal ileum. Differential has been discussed and includes a neoplastic process, infectious etiology, benign inflammatory disease. Mesenteric ischemia appears to be less likely at this time. PLAN: I would agree with a conservative approach for now. We will follow up clinically with imaging studies. We could consider broad-spectrum antibiotic coverage for the abdomen. CT enterography may not provide any more useful information. We will discuss with radiology. Also, inflammatory bowel disease/Crohn disease would be less likely as well to present acutely in this elderly patient. We will be glad to follow the patient with you. Thank you kindly for this consult. In addition, I did reveal her labs. White count has been normal. Hemoglobin has been normal. Liver enzymes, albumin and lipase also are within normal range. Lactic acid also was 1.1. MD LOLY José/adeline , 08:15 PM , 08:24 PM
[2018-08-06] MEDS: Sod Chloride 0.9% Inj 1,000 ML IV.CONT SCH ×2 (00:48→13:33)
[2018-08-06] MEDS: Pantoprazole Inj 40 MG Vial IV.PUSH SCH (06:45)
--- NOTE | 2018-08-06 08:26 | P.PN ---
Subjective Interval history: The patient remains n.p.o. She reports no nausea. Not passing any flatus nor having any bowel movements. Denies shortness of breath. No cough or chest pain. Denies any abdominal pain. Active Medications Generic Name Dose Route Start Last Admin Trade Name Freq PRN Reason Stop Dose Admin Albuterol 2.5 mg 08/05/18 08:00 08/05/18 21:14 Albuterol Neb (Ciaran) NEB 2.5 mg TID NEB CIARAN Administration Enoxaparin Sodium 40 mg 08/06/18 09:00 Lovenox Inj SQ DAILY CIARAN Sodium Chloride 1,000 mls @ 100 mls/hr 08/05/18 02:15 08/06/18 00:48 Ns Inj IV.CONT 100 mls/hr .Q10H CIARAN Administration Metronidazole/Sodium Chloride 100 mls @ 100 mls/hr 08/06/18 09:00 Flagyl 500 Mg Inj IV.SIG Q8H CIARAN Ciprofloxacin/Dextrose 400 mg in 200 mls @ 200 mls/hr 08/06/18 08:15 Cipro 400 Mg/200 Ml Inj IV.SIG Q12H CIARAN Labetalol HCl 10 mg 08/05/18 09:17 08/05/18 09:35 Trandate Inj IV.PUSH 10 mg Q4H PRN Administration SBP>180, DBP>100, HR>65 Morphine Sulfate 1 mg 08/05/18 02:03 Morphine Inj IV.PUSH Q3H PRN PAIN 3-5; IF UABLE TO TAKE PO Morphine Sulfate 3 mg 08/05/18 02:03 08/05/18 21:00 Morphine Inj IV.PUSH 3 mg Q3H PRN Administration PAIN 6-10;IF UNABLE TO TAKE PO Naloxone HCl 0.4 mg 08/05/18 02:03 Narcan Inj IV.PUSH UNSCH PRN SEE LABEL COMMENTS Ondansetron HCl 4 mg 08/05/18 02:03 08/05/18 20:59 Zofran Inj IV.PUSH 4 mg Q6H PRN Administration NAUSEA OR VOMITING Pantoprazole Sodium 40 mg 08/05/18 03:00 08/06/18 06:45 Protonix Inj IV.PUSH 40 mg Q24H CIARAN Administration Sodium Chloride 2 ml 08/05/18 21:00 08/05/18 21:03 Ns Flush IV.FLUSH 2 ml BID CIARAN Administration Sodium Chloride 2 ml 08/05/18 09:25 Ns Flush IV.FLUSH PRN PRN FLUSH AFTER USING IV ACCESS Physical Exam Vital signs: Vital Signs 08/05/18 09:00 08/05/18 09:30 08/05/18 09:42 Temperature Pulse Rate 80 Respiratory Rate 22 Blood Pressure 192/88 H 209/87 H 139/65 Pulse Oximetry 95 08/05/18 12:00 08/05/18 12:24 08/05/18 16:00 Temperature 97.6 F 97.7 F Pulse Rate 56 L 80 68 Respiratory Rate 17 16 17 Blood Pressure 121/70 132/74 Pulse Oximetry 97 98 08/05/18 20:00 08/05/18 21:15 08/06/18 00:00 Temperature 97.7 F 98.3 F Pulse Rate 83 83 80 Respiratory Rate 22 22 20 Blood Pressure 120/78 160/72 H Pulse Oximetry 92 L 92 L 98 08/06/18 01:17 Temperature Pulse Rate Respiratory Rate 18 Blood Pressure Pulse Oximetry Intake & Output 08/05/18 08/06/18 08/06/18 18:59 06:59 18:59 Intake Total 1999 1000 / 1000 Balance 1999 1000 / 1000 Weight 160 lb 11.472 oz Intake: IV 1999 1000 / 1000 NS Inj 1,000 ML @ 100 mls/hr IV 1999 1000 / 1000 .CONT .Q10H CIARAN Rx#:[id number] Other: # Voids 6 # Urine Diapers 2 Date of Last Bowel Movement 08/04/18 08/04/18 - Constitutional no acute distress - Routine Neck Exam Present: supple Comments: No lymphadenopathy, JVD or thyromegaly - Routine Respiratory Exam Present: CTA bilaterally Comments: Moderately reduced air exchange bilaterally - Routine Cardiovascular Exam Comments: IRRR - Routine Abdominal Exam Comments: Moderately distended but soft, bowel sounds are present, no masses, no tenderness Results - Labs CBC & Chem 7: 08/05/18 00:00 08/05/18 00:00 Laboratory Results - last 24 hr 08/05/18 13:56 Lactic Acid 1.4 - Imaging Impressions Abdomen/Pelvis CTA 08/05/18 00:00 CONCLUSION: 1. 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 Celiac and FLETCHER are patent. Central SMV and portal vein are patent. Therefore, mesenteric ischemia as an etiology for patient's small bowel obstruction and proximal ileitis is unlikely. 2. 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 3. Remainder of the exam is unchanged from earlier abdominal CT exam with redemonstration of acute small bowel obstruction secondary to severe wall thickening involving the proximal ileum in the central pelvis. No evidence for perforation, bowel infarction or abscess at this time. Assessment and Plan - Assessment (1) Small bowel obstruction Code(s): K56.609 - Unspecified intestinal obstruction, unspecified as to partial versus complete obstruction Status: Acute Plan: I have reviewed gastroenterology and general surgery consultations. Agree with conservative management. Patient not experiencing any nausea, therefore, will hold off on NG tube at this time. Examination revealed bowel sounds this morning. Awaiting repeat KUB. Continue n.p.o. status and IV fluids. (2) Ileitis Code(s): K52.9 - Noninfective gastroenteritis and colitis, unspecified Status : Acute Plan: Underlying etiology unclear. I have started the patient on ciprofloxacin and metronidazole for antibiotic coverage for possible infectious etiology based on recommendations from gastroenterology. Ischemia unlikely. Will follow. (3) Chronic atrial fibrillation Code(s): I48.2 - Chronic atrial fibrillation Status: Chronic Plan: Ventricular rate is well controlled. Patient normally receives Eliquis. Will begin Lovenox subcutaneously in case patient needs surgical intervention. (4) Chronic obstructive pulmonary disease Code(s): J44.9 - Chronic obstructive pulmonary disease, unspecified Status: Chronic Plan: The patient has moderately severe COPD. Respiratory status is stable. She will continue with albuterol nebulizer treatments. She does not tolerate ipratropium bromide in her nebulizer treatments. Continue with supplemental oxygen. Patient normally receives oxygen only at night. (5) Hypertension Code(s): I10 - Essential (primary) hypertension Status: Chronic Plan: Blood pressure variable depending on patient's level of anxiety. Usual antihypertensive medications on hold due to n.p.o. status. Patient has an order for labetalol as needed (6) GERD (gastroesophageal reflux disease) Code(s): K21.9 - Gastro-esophageal reflux disease without esophagitis Status: Chronic Plan: Continue with PPI (7) Hypothyroidism Code(s): E03.9 - Hypothyroidism, unspecified Status: Chronic Plan: Levothyroxine on hold until patient able to take p.o. If n.p.o. status will be prolonged, will begin IV levothyroxine (4) Chronic obstructive pulmonary disease Qualifiers: COPD type: emphysema Emphysema type: panlobular Qualified Code(s): J43.1 - Panlobular emphysema (5) Hypertension Qualifiers: Hypertension type: essential hypertension Qualified Code(s): I10 - Essential (primary) hypertension (6) GERD (gastroesophageal reflux disease) Qualifiers: Esophagitis presence: without esophagitis Qualified Code(s): K21.9 - Gastro- esophageal reflux disease without esophagitis (7) Hypothyroidism Qualifiers: Hypothyroidism type: unspecified Qualified Code(s): E03.9 - Hypothyroidism, unspecified
[2018-08-06 08:31] LABS: Baso % (Auto) 0.1 % (0.0-2.0); Hematocrit 44.6 % (35.0-46.0); Hemoglobin 14.3 gm/dL (11.6-15.3); Lymph # (Auto) 0.7 th/mm3 (1.0-4.8); Lymph % (Auto) 4.7 % (9.0-44.0); Mean Corpuscular Hemoglobin 29.3 pg (27.0-34.0); Mean Corpuscular Volume 91.6 fL (80.0-100.0); Mean Platelet Volume 11.5 fL (7.0-11.0); Mono # (Auto) 0.9 th/mm3 (0.0-0.9); Mono % (Auto) 5.6 % (0.0-8.0); Neut # (Auto) 13.9 th/mm3 (1.8-7.7); Neut % (Auto) 89.6 % (16.0-70.0); Platelet Count 223 th/mm3 (150-450); Red Blood Count 4.87 mil/mm3 (4.00-5.30); Red Cell Distribution Width 17.7 % (11.6-17.2); White Blood Count 15.6 th/mm3 (4.0-11.0)
[2018-08-06 08:55] LABS: Calcium 8.4 mg/dL (8.5-10.1); Carbon Dioxide 26.8 meq/L (21.0-32.0); Potassium 4.2 meq/L (3.5-5.1)
--- NOTE | 2018-08-06 09:06 | XR ---
EXAM DATE: 08/06/2018 8:37 AM EDT AGE/SEX: 87 years / Female INDICATIONS: Obstruction. CLINICAL DATA: This is the patient's subsequent encounter. Patient reports that signs and symptoms h ave been present for 2 days and indicates a pain score of 0/10. MEDICAL/SURGICAL HISTORY: . Gastroesophageal reflux disease. Hypertension. Cerebrovascular dise ase. None. COMPARISON: [facility] – [place], CT ABDOMEN & PELVIS W CONTRAST, 08/05/2018. . FINDINGS: The examination demonstrates diffuse gaseous distention of multiple loops of small bowel. There is s till gas and stool within the colon. The study would suggest adynamic ileus. No free air is identifie d. No abnormal calcifications are seen. There are degenerative changes throughout the spine and arthritic changes within the hips bilaterally . CONCLUSION: Diffuse gaseous distention of multiple loops of small bowel. Study would favor adynamic ileus. Follow -up to resolution would be warranted. Electronically signed by: Josse Cobian MD 08/06/2018 9:04 AM EDT
[2018-08-06] MEDS: Enoxaparin Inj 40 MG/0.4 ML Syringe SQ SCH (09:46)
[2018-08-06] MEDS: Sodium Chloride 0.9% 2 ML Flush BID IV.FLUSH SCH ×2 (09:47→20:23)
[2018-08-06] MEDS: Ciprofloxacin 400 MG/200 ML 400 MG/200 ML PIGGYBACK IV.SIG SCH ×2 (09:47→20:22)
[2018-08-06] MEDS: Morphine Inj 4 MG/ML Vial IV.PUSH PRN ×2 (13:31→19:14)
--- NOTE | 2018-08-06 15:57 | P.PNGS ---
Subjective Interval history: Patient seen about 729 Had uneventful night No issues Physical Exam Vital signs: Vital Signs 08/05/18 16:00 08/05/18 20:00 08/05/18 21:15 Temperature 97.7 F 97.7 F Pulse Rate 68 83 83 Respiratory Rate 17 22 22 Blood Pressure 132/74 120/78 Pulse Oximetry 98 92 L 92 L 08/06/18 00:00 08/06/18 01:17 08/06/18 08:00 Temperature 98.3 F 98.2 F Pulse Rate 80 83 Respiratory Rate 20 18 20 Blood Pressure 160/72 H 175/87 H Pulse Oximetry 98 97 08/06/18 12:00 Temperature 97.8 F Pulse Rate 90 Respiratory Rate 20 Blood Pressure 136/65 Pulse Oximetry 94 L Intake & Output 08/05/18 08/06/18 08/06/18 18:59 06:59 18:59 Intake Total 1999 / 1999 1000 / 1000 2300 / 2300 Balance 1999 1000 / 1000 2300 / 2300 Weight 72.9 kg Intake: IV 1999 1000 / 1000 2300 / 2300 NS Inj 1,000 ML @ 100 mls/hr IV 1999 / 1999 1000 / 1000 2000 / 2000 .CONT .Q10H TERRI Rx#:[id number] Cipro 400 MG/200 ML Inj 400 mg 200 / 200 In 200 ml @ 200 mls/hr IV.SIG Q12H TERRI Rx#:[id number] Flagyl 500 MG Inj 100 ML @ 100 100 / 100 mls/hr IV.SIG Q8H TERRI Rx#: [id number] Other: # Voids 6 # Urine Diapers 2 Date of Last Bowel Movement 08/04/18 08/04/18 Narrative: Alert and awake Abd: soft; mildly distended; minimally tender in lower abdomen Results - Labs 08/15/18 06:35 08/17/18 04:41 Laboratory Results - last 24 hr 08/06/18 08/06/18 06:15 06:15 WBC 15.6 H RBC 4.87 Hgb 14.3 Hct 44.6 MCV 91.6 MCH 29.3 MCHC 32.0 RDW 17.7 H Plt Count 223 MPV 11.5 H Neut % (Auto) 89.6 H Lymph % (Auto) 4.7 L [place] % (Auto) 5.6 Eos % (Auto) 0.0 Baso % (Auto) 0.1 Neut # (Auto) 13.9 H Lymph # (Auto) 0.7 L [place] # (Auto) 0.9 Eos # (Auto) 0.0 Baso # (Auto) 0.0 WBC Differential . Differential Comment Auto diff final Sodium 139 Potassium 4.2 Chloride 102 Carbon Dioxide 26.8 Anion Gap 10 BUN 28 H Creatinine 0.95 Estimated GFR 56 L Random Glucose 90 Calcium 8.4 L D - Imaging Imaging: ITS Impressions Abdomen/Pelvis CTA 08/05/18 00:00 CONCLUSION: 1. 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 Celiac and FLETCHER are patent. Central SMV and portal vein are patent. Therefore, mesenteric ischemia as an etiology for patient's small bowel obstruction and proximal ileitis is unlikely. 2. 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 3. Remainder of the exam is unchanged from earlier abdominal CT exam with redemonstration of acute small bowel obstruction secondary to severe wall thickening involving the proximal ileum in the central pelvis. No evidence for perforation, bowel infarction or abscess at this time. Chest X-Ray 08/05/18 00:00 CONCLUSION: No acute cardiopulmonary disease demonstrated. Mild chronic interstitial opacities are stable. Abdomen/Pelvis CT 08/05/18 23:49 CONCLUSION: 1. Approximately 10 cm long segment of severe wall thickening involving the proximal ileum within the pelvic cavity and with associated acute small bowel obstruction. The etiology of wall thickening is uncertain. Infectious, inflammatory and neoplastic etiologies are all in the differential. 2. Associated trace ascites. Nothing organized or drainable. No free air. 3. Diverticulosis of the colon without diverticulitis. 4. Patchy cortical thinning/scarring and cysts of both kidneys. There are also nonobstructing stones of the right kidney. 5. Bilateral adrenal nodularity, indeterminate but statistically most likely benign adenomatous change. 6. Aortoiliac atherosclerosis. No aneurysm seen. 7. Trace lung base atelectasis. 8. Coronary artery calcification. Visualized heart appears enlarged, mostly the left atrium. 9. Small hiatal hernia. Abdomen X-Ray 08/06/18 07:00 CONCLUSION: Diffuse gaseous distention of multiple loops of small bowel. Study would favor adynamic ileus. Follow-up to resolution would be warranted. Assessment and Plan - Assessment (1) Small bowel obstruction Code(s): K56.609 - Unspecified intestinal obstruction, unspecified as to partial versus complete obstruction Status: Resolved Plan: 87 year old female with abdominal pain; SBO vs gastroenteritis vs adhesions -KUB shows some improvement -NPO -IVF -Will plan for SBFT tomorrow - Attending Attestation The exam, history, and the medical decision-making described in the above note were completed with the assistance of the mid-level provider. I reviewed and agree with the findings presented. I attest that I had a [id number] encounter with the patient on the same day, and personally performed and documented my assessment and findings in the medical record. Patient with SBO, stable Abdominal exam stable, no peritonitis, non-surgical Recommend continue non-operative management
--- NOTE | 2018-08-06 16:27 | P.PNGI ---
Subjective Interval history: Pt alert nad NO BM or flatus Burping a lot....No vomiting VSS Physical Exam Vital signs: Vital Signs 08/05/18 20:00 08/05/18 21:15 08/06/18 00:00 Temperature 97.7 F 98.3 F Pulse Rate 83 83 80 Respiratory Rate 22 22 20 Blood Pressure 120/78 160/72 H Pulse Oximetry 92 L 92 L 98 08/06/18 01:17 08/06/18 08:00 08/06/18 12:00 Temperature 98.2 F 97.8 F Pulse Rate 83 90 Respiratory Rate 18 20 20 Blood Pressure 175/87 H 136/65 Pulse Oximetry 97 94 L Intake & Output 08/05/18 08/06/18 08/06/18 18:59 06:59 18:59 Intake Total 1999 1000 / 1000 2300 / 2300 Balance 1999 1000 / 1000 2300 / 2300 Weight 72.9 kg Intake: IV 1999 1000 / 1000 2300 / 2300 NS Inj 1,000 ML @ 100 mls/hr IV 1999 1000 / 1000 1999 / 1999 .CONT .Q10H TERRI Rx#:[id number] Cipro 400 MG/200 ML Inj 400 mg 200 / 200 In 200 ml @ 200 mls/hr IV.SIG Q12H TERRI Rx#:[id number] Flagyl 500 MG Inj 100 ML @ 100 100 / 100 mls/hr IV.SIG Q8H TERRI Rx#: [id number] Other: # Voids 6 # Urine Diapers 2 Date of Last Bowel Movement 08/04/18 08/04/18 - Constitutional no acute distress - Routine Respiratory Exam Present: CTA bilaterally - Routine Cardiovascular Exam Present: S1, S2 - Routine Abdominal Exam Present: soft Comments: mild distention no rebound BS present Results - Labs CBC & Chem 7: 08/06/18 06:15 08/06/18 06:15 Laboratory Results - last 24 hr 08/06/18 08/06/18 06:15 06:15 WBC 15.6 H RBC 4.87 Hgb 14.3 Hct 44.6 MCV 91.6 MCH 29.3 MCHC 32.0 RDW 17.7 H Plt Count 223 MPV 11.5 H Neut % (Auto) 89.6 H Lymph % (Auto) 4.7 L [place] % (Auto) 5.6 Eos % (Auto) 0.0 Baso % (Auto) 0.1 Neut # (Auto) 13.9 H Lymph # (Auto) 0.7 L [place] # (Auto) 0.9 Eos # (Auto) 0.0 Baso # (Auto) 0.0 WBC Differential . Differential Comment Auto diff final Sodium 139 Potassium 4.2 Chloride 102 Carbon Dioxide 26.8 Anion Gap 10 BUN 28 H Creatinine 0.95 Estimated GFR 56 L Random Glucose 90 Calcium 8.4 L D - Imaging Impressions Abdomen X-Ray 08/06/18 07:00 CONCLUSION: Diffuse gaseous distention of multiple loops of small bowel. Study would favor adynamic ileus. Follow-up to resolution would be warranted. Assessment and Plan (1) Small bowel obstruction Status: Acute Code(s): K56.609 - Unspecified intestinal obstruction, unspecified as to partial versus complete obstruction (2) Ileitis Status: Acute Code(s): K52.9 - Noninfective gastroenteritis and colitis, unspecified - Plan Agree w SBFT cont present conservative measures Surgery following pt as well If no resolution may need surgical intervention
[2018-08-06] MEDS: Dextrose 5%/NaCl 0.45% Inj 1,000 ML IV.CONT SCH (16:40)
[2018-08-07] MEDS: Dextrose 5%/NaCl 0.45% Inj 1,000 ML IV.CONT SCH ×4 (02:54→21:59)
[2018-08-07] MEDS: Pantoprazole Inj 40 MG Vial IV.PUSH SCH (02:56)
[2018-08-07] MEDS: Morphine Inj 4 MG/ML Vial IV.PUSH PRN ×3 (02:59→18:37)
[2018-08-07 08:20] LABS: Calcium 8.1 mg/dL (8.5-10.1); Potassium 3.7 meq/L (3.5-5.1)
[2018-08-07] MEDS: Enoxaparin Inj 40 MG/0.4 ML Syringe SQ SCH (10:09)
[2018-08-07] MEDS: Ciprofloxacin 400 MG/200 ML 400 MG/200 ML PIGGYBACK IV.SIG SCH ×2 (10:09→21:35)
[2018-08-07] MEDS: Sodium Chloride 0.9% 2 ML Flush BID IV.FLUSH SCH ×2 (10:10→21:36)
--- NOTE | 2018-08-07 11:05 | P.PN ---
Subjective Interval history: Small bowel series in progress. Patient had a small amount of emesis after taking contrast. Had some abdominal discomfort overnight and received morphine sulfate. Blood pressure is variable but remains under adequate control. Denies any chest pain or palpitation. No shortness of breath with oxygen at 2 L/min per nasal cannula. Physical Exam Vital signs: Vital Signs 08/06/18 12:00 08/06/18 16:00 08/06/18 20:00 Temperature 97.8 F 97.7 F 97.8 F Pulse Rate 90 90 95 H Respiratory Rate 20 20 22 Blood Pressure 136/65 138/83 164/65 H Pulse Oximetry 94 L 98 97 08/06/18 20:08 08/07/18 00:00 08/07/18 07:49 Temperature 97 F L Pulse Rate 80 92 H 66 Respiratory Rate 16 22 18 Blood Pressure 125/68 Pulse Oximetry 99 96 98 08/07/18 08:00 Temperature 97.9 F Pulse Rate 84 Respiratory Rate 17 Blood Pressure 155/70 H Pulse Oximetry 98 Intake & Output 08/06/18 08/07/18 08/07/18 18:59 06:59 18:59 Intake Total 2300 / 2300 1400 / 1400 Balance 2300 / 2300 1400 / 1400 Weight 167 lb 12.348 oz Intake: IV 2300 / 2300 1400 / 1400 D5W/1/2 NS Inj 1,000 ML @ 125 1000 / 1000 mls/hr IV.CONT .Q8H TERRI Rx#: [id number] NS Inj 1,000 ML @ 100 mls/hr IV 1999 / 1999 .CONT .Q10H TERRI Rx#:[id number] Cipro 400 MG/200 ML Inj 400 mg 200 / 200 200 / 200 In 200 ml @ 200 mls/hr IV.SIG Q12H TERRI Rx#:[id number] Flagyl 500 MG Inj 100 ML @ 100 100 / 100 200 / 200 mls/hr IV.SIG Q8H TERRI Rx#: [id number] Other: # Voids 6 3 Date of Last Bowel Movement 08/04/18 - Constitutional no acute distress - Routine Respiratory Exam Present: CTA bilaterally Comments: Moderately reduced air exchange bilaterally - Routine Cardiovascular Exam Comments: IRRR - Routine Abdominal Exam Comments: Distended, soft, bowel sounds present, nontender, no masses Results - Labs CBC & Chem 7: 08/06/18 06:15 08/07/18 05:50 Laboratory Results - last 24 hr 08/07/18 05:50 Sodium 137 Potassium 3.7 Chloride 102 Carbon Dioxide 28.0 Anion Gap 7 BUN 29 H Creatinine 0.96 Estimated GFR 55 L Random Glucose 112 H Calcium 8.1 L Assessment and Plan - Assessment (1) Small bowel obstruction Code(s): K56.609 - Unspecified intestinal obstruction, unspecified as to partial versus complete obstruction Status: Acute Plan: But bowel sounds present on examination. Patient still has not passed any flatus or had a bowel movement undergoing a small bowel series today. Will await results. Continue with IV fluids. Continue n.p.o. Appreciate general surgery and gastroenterology consultations. (2) Ileitis Code(s): K52.9 - Noninfective gastroenteritis and colitis, unspecified Status : Acute Plan: Underlying etiology unclear. Continue with IV antibiotics. Will follow. (3) Chronic atrial fibrillation Code(s): I48.2 - Chronic atrial fibrillation Status: Chronic Plan: Ventricular rate is well controlled. Patient normally receives Eliquis. Will begin Lovenox subcutaneously in case patient needs surgical intervention. (4) Chronic obstructive pulmonary disease Code(s): J44.9 - Chronic obstructive pulmonary disease, unspecified Status: Chronic Plan: The patient has moderately severe COPD. Respiratory status is stable. She will continue with albuterol nebulizer treatments. She does not tolerate ipratropium bromide in her nebulizer treatments. Continue with supplemental oxygen. Patient normally receives oxygen only at night. (5) Hypertension Code(s): I10 - Essential (primary) hypertension Status: Chronic Plan: Blood pressure variable depending on patient's level of anxiety. Usual antihypertensive medications on hold due to n.p.o. status. Patient has an order for labetalol as needed (6) GERD (gastroesophageal reflux disease) Code(s): K21.9 - Gastro-esophageal reflux disease without esophagitis Status: Chronic Plan: Continue with PPI (7) Hypothyroidism Code(s): E03.9 - Hypothyroidism, unspecified Status: Chronic Plan: Levothyroxine on hold until patient able to take p.o. If n.p.o. status will be prolonged, will begin IV levothyroxine (4) Chronic obstructive pulmonary disease Qualifiers: COPD type: emphysema Emphysema type: panlobular Qualified Code(s): J43.1 - Panlobular emphysema (5) Hypertension Qualifiers: Hypertension type: essential hypertension Qualified Code(s): I10 - Essential (primary) hypertension (6) GERD (gastroesophageal reflux disease) Qualifiers: Esophagitis presence: without esophagitis Qualified Code(s): K21.9 - Gastro- esophageal reflux disease without esophagitis (7) Hypothyroidism Qualifiers: Hypothyroidism type: unspecified Qualified Code(s): E03.9 - Hypothyroidism, unspecified
--- NOTE | 2018-08-07 11:13 | P.PNGS ---
Subjective Patient reports: still having pain (distension and pain after exam, vomited with sbft, exam result pending) Physical Exam Vital signs: Vital Signs 08/06/18 12:00 08/06/18 16:00 08/06/18 20:00 Temperature 97.8 F 97.7 F 97.8 F Pulse Rate 90 90 95 H Respiratory Rate 20 20 22 Blood Pressure 136/65 138/83 164/65 H Pulse Oximetry 94 L 98 97 08/06/18 20:08 08/07/18 00:00 08/07/18 07:49 Temperature 97 F L Pulse Rate 80 92 H 66 Respiratory Rate 16 22 18 Blood Pressure 125/68 Pulse Oximetry 99 96 98 08/07/18 08:00 Temperature 97.9 F Pulse Rate 84 Respiratory Rate 17 Blood Pressure 155/70 H Pulse Oximetry 98 Intake & Output 08/06/18 08/07/18 08/07/18 18:59 06:59 18:59 Intake Total 2300 / 2300 1400 / 1400 Balance 2300 / 2300 1400 / 1400 Weight 76.1 kg Intake: IV 2300 / 2300 1400 / 1400 D5W/1/2 NS Inj 1,000 ML @ 125 1000 / 1000 mls/hr IV.CONT .Q8H [facility] Rx#: [id number] NS Inj 1,000 ML @ 100 mls/hr IV 1999 / 1999 .CONT .Q10H [facility] Rx#:[id number] Cipro 400 MG/200 ML Inj 400 mg 200 / 200 200 / 200 In 200 ml @ 200 mls/hr IV.SIG Q12H [facility] Rx#:[id number] Flagyl 500 MG Inj 100 ML @ 100 100 / 100 200 / 200 mls/hr IV.SIG Q8H [facility] Rx#: [id number] Other: # Voids 6 3 Date of Last Bowel Movement 08/04/18 - Routine Abdominal Exam Present: soft, distended Results - Labs 08/06/18 06:15 08/07/18 05:50 Laboratory Results - last 24 hr 08/07/18 05:50 Sodium 137 Potassium 3.7 Chloride 102 Carbon Dioxide 28.0 Anion Gap 7 BUN 29 H Creatinine 0.96 Estimated GFR 55 L Random Glucose 112 H Calcium 8.1 L - Imaging Imaging: ITS Impressions Abdomen/Pelvis CTA 08/05/18 00:00 CONCLUSION: 1. 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 Celiac and FLETCHER are patent. Central SMV and portal vein are patent. Therefore, mesenteric ischemia as an etiology for patient's small bowel obstruction and proximal ileitis is unlikely. 2. 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 3. Remainder of the exam is unchanged from earlier abdominal CT exam with redemonstration of acute small bowel obstruction secondary to severe wall thickening involving the proximal ileum in the central pelvis. No evidence for perforation, bowel infarction or abscess at this time. Chest X-Ray 08/05/18 00:00 CONCLUSION: No acute cardiopulmonary disease demonstrated. Mild chronic interstitial opacities are stable. Abdomen/Pelvis CT 08/05/18 23:49 CONCLUSION: 1. Approximately 10 cm long segment of severe wall thickening involving the proximal ileum within the pelvic cavity and with associated acute small bowel obstruction. The etiology of wall thickening is uncertain. Infectious, inflammatory and neoplastic etiologies are all in the differential. 2. Associated trace ascites. Nothing organized or drainable. No free air. 3. Diverticulosis of the colon without diverticulitis. 4. Patchy cortical thinning/scarring and cysts of both kidneys. There are also nonobstructing stones of the right kidney. 5. Bilateral adrenal nodularity, indeterminate but statistically most likely benign adenomatous change. 6. Aortoiliac atherosclerosis. No aneurysm seen. 7. Trace lung base atelectasis. 8. Coronary artery calcification. Visualized heart appears enlarged, mostly the left atrium. 9. Small hiatal hernia. Abdomen X-Ray 08/06/18 07:00 CONCLUSION: Diffuse gaseous distention of multiple loops of small bowel. Study would favor adynamic ileus. Follow-up to resolution would be warranted. Assessment and Plan - Assessment (1) Small bowel obstruction Code(s): K56.609 - Unspecified intestinal obstruction, unspecified as to partial versus complete obstruction Status: Acute Plan: 87 year old female with abdominal pain; SBO vs gastroenteritis vs adhesions npo await sbft pending abdominal exams pain control possible ng tube if no improvement
[2018-08-07] MEDS ORDERED: Diatrizoate Meglum/Diatrizoate Sod Liq 120 ML Bottle (for RAD diag) PO ONE (12:09)
--- NOTE | 2018-08-07 14:04 | FL ---
EXAM DATE: 08/07/2018 1:55 PM EDT AGE/SEX: 87 years / Female INDICATIONS: Abdominal pain, no bowel movement for four days. CLINICAL DATA: This is the patient's subsequent encounter. Patient reports that signs and symptoms h ave been present for 2 days and indicates a pain score of 6/10. MEDICAL/SURGICAL HISTORY: Gastroesophageal reflux disease. Hypertension. Cerebrovascular dise ase. None. COMPARISON: [facility], ABDOMEN 1V KUB, 08/06/2018. . FLUORO TIME: 0 IMAGE COUNT: 17 CONTRAST: [facility] FINDINGS: Preliminary film shows multiple distended air-filled loops of small bowel measuring up to 4.5 cm in d iameter. There is a posterior gas in the colon. Early images show contrast in moderately distended stomach and proximal small bowel. No abnormal fill ing defects. At 5 hours contrast is seen in the proximal to mid small bowel. No contrast seen in the colon. CONCLUSION: Multiple dilated loops of small bowel. Markedly delayed transit of contrast in the small bowel. Contr ast only progresses to the mid small bowel at 5 hours. Findings are suspicious for possible small bow el obstruction. Delayed films could be obtained to evaluate progress of contrast. Electronically signed by: Topher Woodall MD 08/07/2018 2:03 PM EDT
[2018-08-08] MEDS: Pantoprazole Inj 40 MG Vial IV.PUSH SCH (04:18)
[2018-08-08] MEDS: Dextrose 5%/NaCl 0.45% Inj 1,000 ML IV.CONT SCH ×2 (05:58→18:36)
--- NOTE | 2018-08-08 06:40 | XR ---
EXAM DATE: 08/08/2018 6:35 AM EST AGE/SEX: 87 years / Female INDICATIONS: Evaluate for obstruction. CLINICAL DATA: This is the patient's subsequent encounter. Patient reports that signs and symptoms h ave been present for 4 - 6 days and indicates a pain score of 0/10. MEDICAL/SURGICAL HISTORY: Gastroesophageal reflux disease. Hypertension. Transient ischemic a ttack. Rectal fistula. Tonsillectomy. COMPARISON: [facility], SMALL BOWEL W GASTROGRAFIN, 08/07/2018. . FINDINGS: Nasogastric tube is present in good position. Persistent mild gaseous distention of small bowel whic h may be slightly improved. Air present in portions of nondilated colon. CONCLUSION: Improved bowel gas pattern. Electronically signed by: Fidel Elliott MD 08/08/2018 6:38 AM EST
[2018-08-08] MEDS: Ciprofloxacin 400 MG/200 ML 400 MG/200 ML PIGGYBACK IV.SIG SCH ×2 (09:24→21:05)
[2018-08-08] MEDS: Enoxaparin Inj 40 MG/0.4 ML Syringe SQ SCH (09:24)
[2018-08-08] MEDS: Sodium Chloride 0.9% 2 ML Flush BID IV.FLUSH SCH ×2 (09:25→21:04)
--- NOTE | 2018-08-08 09:47 | P.PN ---
Subjective Interval history: The patient had repeated on the course yesterday after small bowel follow- through. NG tube was placed. 1500 cc were suctioned immediately. NG tube now to low intermittent suction. Patient denies nausea or abdominal pain. She remains n.p.o. No flatus or bowel movement. Blood pressure under adequate control without medication at this time. Patient denies any chest pain or palpitations. Ventricular rate remains controlled. Afebrile. Active Medications Generic Name Dose Route Start Last Admin Trade Name Freq PRN Reason Stop Dose Admin Albuterol 2.5 mg 08/05/18 08:00 08/08/18 07:44 Albuterol Neb (Ciaran) NEB 2.5 mg TID NEB [facility] Administration Enoxaparin Sodium 40 mg 08/06/18 09:00 08/08/18 09:24 Lovenox Inj SQ 40 mg DAILY [facility] Administration Metronidazole/Sodium Chloride 100 mls @ 100 mls/hr 08/06/18 10:00 08/08/18 02 :19 Flagyl 500 Mg Inj IV.SIG Infused Q8H [facility] Infusion Ciprofloxacin/Dextrose 400 mg in 200 mls @ 200 mls/hr 08/06/18 09:00 09:24 Cipro 400 Mg/200 Ml Inj IV.SIG 200 mls/hr Q12H [facility] Administration Dextrose/Sodium Chloride 1,000 mls @ 125 mls/hr 08/06/18 14:15 08/08/18 05:58 D5w/1/2 Ns Inj IV.CONT 125 mls/hr .Q8H [facility] Administration Labetalol HCl 10 mg 08/05/18 09:17 08/05/18 09:35 Trandate Inj IV.PUSH 10 mg Q4H PRN Administration SBP>180, DBP>100, HR>65 Morphine Sulfate 1 mg 08/05/18 02:03 Morphine Inj IV.PUSH Q3H PRN PAIN 3-5; IF UABLE TO TAKE PO Morphine Sulfate 3 mg 08/05/18 02:03 08/07/18 18:37 Morphine Inj IV.PUSH 3 mg Q3H PRN Administration PAIN 6-10;IF UNABLE TO TAKE PO Naloxone HCl 0.4 mg 08/05/18 02:03 Narcan Inj IV.PUSH UNSCH PRN SEE LABEL COMMENTS Ondansetron HCl 4 mg 08/05/18 02:03 08/07/18 18:37 Zofran Inj IV.PUSH 4 mg Q6H PRN Administration NAUSEA OR VOMITING Pantoprazole Sodium 40 mg 08/05/18 03:00 08/08/18 04:18 Protonix Inj IV.PUSH 40 mg Q24H [facility] Administration Sodium Chloride 2 ml 08/05/18 21:00 08/08/18 09:25 Ns Flush IV.FLUSH Not Given BID [facility] Sodium Chloride 2 ml 08/05/18 09:25 08/06/18 13:32 Ns Flush IV.FLUSH 2 ml PRN PRN Administration FLUSH AFTER USING IV ACCESS Physical Exam Vital signs: Vital Signs 08/07/18 12:00 08/07/18 16:00 08/07/18 17:26 Temperature 97.9 F 97.8 F Pulse Rate 77 93 H Respiratory Rate 17 18 Blood Pressure 132/70 Pulse Oximetry 98 08/07/18 20:00 08/07/18 20:05 08/08/18 00:00 Temperature 97.7 F 97.9 F Pulse Rate 92 H 110 H 77 Respiratory Rate 18 18 19 Blood Pressure 165/77 H 102/56 L Pulse Oximetry 94 L 94 L 94 L 08/08/18 07:45 08/08/18 08:00 Temperature 98.0 F Pulse Rate 71 92 H Respiratory Rate 19 17 Blood Pressure 139/68 Pulse Oximetry 98 94 L Intake & Output 08/07/18 08/08/18 08/08/18 19:59 06:59 18:59 Intake Total Output Total Balance Weight Intake: IV D5W/1/2 NS Inj 1,000 ML @ 125 mls/hr IV.CONT .Q8H [facility] Rx#: [id number] Cipro 400 MG/200 ML Inj 400 mg In 200 ml @ 200 mls/hr IV.SIG Q12H [facility] Rx#:[id number] Flagyl 500 MG Inj 100 ML @ 100 mls/hr IV.SIG Q8H [facility] Rx#: [id number] Oral Output: Gastric Drainage Right Nare Nasogastric Tube Other: # Voids - Constitutional no acute distress Comments: With NG tube in place - Routine Neck Exam Present: supple Comments: No lymphadenopathy, JVD, bruits or thyromegaly - Routine Respiratory Exam Comments: Clear to auscultation but moderately restricted air exchange - Routine Cardiovascular Exam Comments: IRRR with soft systolic murmur - Routine Abdominal Exam Comments: Moderate distention but less than yesterday. Hypoactive bowel sounds. Soft, nontender Results - Labs CBC & Chem 7: 08/06/18 06:15 08/07/18 05:50 - Imaging Impressions Small Bowel X-Ray 08/07/18 00:00 CONCLUSION: Multiple dilated loops of small bowel. Markedly delayed transit of contrast in the small bowel. Contrast only progresses to the mid small bowel at 5 hours. Findings are suspicious for possible small bowel obstruction. Delayed films could be obtained to evaluate progress of contrast. Abdomen X-Ray 08/08/18 06:00 CONCLUSION: Improved bowel gas pattern. Assessment and Plan - Assessment (1) Small bowel obstruction Code(s): K56.609 - Unspecified intestinal obstruction, unspecified as to partial versus complete obstruction Status: Acute Plan: Small bowel series revealed findings consistent with small bowel obstruction. Patient now with NG tube to low intermittent suction. Patient empirically receiving IV antibiotics. Will decrease IV fluids to a maintenance rate. Further treatment per general surgery. (2) Ileitis Code(s): K52.9 - Noninfective gastroenteritis and colitis, unspecified Status : Acute Plan: Underlying etiology unclear. Continue with IV antibiotics. Will follow. (3) Chronic atrial fibrillation Code(s): I48.2 - Chronic atrial fibrillation Status: Chronic Plan: Ventricular rate is well controlled. Patient normally receives Eliquis. Continue Lovenox subcutaneously which could be held prior to surgical intervention if needed. (4) Chronic obstructive pulmonary disease Code(s): J44.9 - Chronic obstructive pulmonary disease, unspecified Status: Chronic Plan: The patient has moderately severe COPD. Respiratory status is stable. She will continue with albuterol nebulizer treatments. Continue with supplemental oxygen. Patient normally receives oxygen only at night. Will begin incentive spirometry. Patient out of bed as much as possible. (5) Hypertension Code(s): I10 - Essential (primary) hypertension Status: Chronic Plan: Blood pressure under adequate control at this time. Labetalol IV available as needed. (6) GERD (gastroesophageal reflux disease) Code(s): K21.9 - Gastro-esophageal reflux disease without esophagitis Status: Chronic Plan: Continue with PPI (7) Hypothyroidism Code(s): E03.9 - Hypothyroidism, unspecified Status: Chronic Plan: Will begin levothyroxine IV. (4) Chronic obstructive pulmonary disease Qualifiers: COPD type: emphysema Emphysema type: panlobular Qualified Code(s): J43.1 - Panlobular emphysema (5) Hypertension Qualifiers: Hypertension type: essential hypertension Qualified Code(s): I10 - Essential (primary) hypertension (6) GERD (gastroesophageal reflux disease) Qualifiers: Esophagitis presence: without esophagitis Qualified Code(s): K21.9 - Gastro- esophageal reflux disease without esophagitis (7) Hypothyroidism Qualifiers: Hypothyroidism type: unspecified Qualified Code(s): E03.9 - Hypothyroidism, unspecified
[2018-08-08 09:50] LABS: Baso % (Auto) 0.1 % (0.0-2.0); Eos % (Auto) 0.3 % (0.0-4.0); Hematocrit 39.1 % (35.0-46.0); Hemoglobin 13.1 gm/dL (11.6-15.3); Lymph # (Auto) 0.8 th/mm3 (1.0-4.8); Lymph % (Auto) 8.5 % (9.0-44.0); Mean Corpuscular HGB Conc 33.4 % (32.0-36.0); Mean Corpuscular Hemoglobin 30.1 pg (27.0-34.0); Mean Platelet Volume 11.1 fL (7.0-11.0); Mono % (Auto) 11.2 % (0.0-8.0); Neut # (Auto) 7.3 th/mm3 (1.8-7.7); Neut % (Auto) 79.9 % (16.0-70.0); Platelet Count 189 th/mm3 (150-450); Red Blood Count 4.34 mil/mm3 (4.00-5.30); Red Cell Distribution Width 17.6 % (11.6-17.2); White Blood Count 9.1 th/mm3 (4.0-11.0)
[2018-08-08 11:46] LABS: Platelet Estimate Normal (Normal)
--- NOTE | 2018-08-08 14:30 | P.PNGI ---
Subjective Interval history: alert NAD feeling better w NGT decompression SBFT w obstruction mid level SB Physical Exam Vital signs: Vital Signs 08/07/18 16:00 08/07/18 17:26 08/07/18 20:00 Temperature 97.8 F 97.7 F Pulse Rate 93 H 92 H Respiratory Rate 18 18 Blood Pressure 165/77 H Pulse Oximetry 94 L 08/07/18 20:05 08/08/18 00:00 08/08/18 07:45 Temperature 97.9 F Pulse Rate 110 H 77 71 Respiratory Rate 18 19 19 Blood Pressure 102/56 L Pulse Oximetry 94 L 94 L 98 08/08/18 08:00 Temperature 98.0 F Pulse Rate 92 H Respiratory Rate 17 Blood Pressure 139/68 Pulse Oximetry 94 L Intake & Output 08/07/18 08/08/18 08/08/18 19:59 06:59 18:59 Intake Total Output Total Balance Weight Intake: IV D5W/1/2 NS Inj 1,000 ML @ 125 mls/hr IV.CONT .Q8H [facility] Rx#: [id number] Cipro 400 MG/200 ML Inj 400 mg In 200 ml @ 200 mls/hr IV.SIG Q12H [facility] Rx#:[id number] Flagyl 500 MG Inj 100 ML @ 100 mls/hr IV.SIG Q8H [facility] Rx#: [id number] Oral Output: Gastric Drainage Right Nare Nasogastric Tube Other: # Voids - Routine Abdominal Exam Present: soft Comments: mild distention slight diffuse tenderness Results - Labs CBC & Chem 7: 08/08/18 08:03 08/07/18 05:50 Laboratory Results - last 24 hr 08/08/18 08:03 WBC 9.1 RBC 4.34 Hgb 13.1 Hct 39.1 MCV 90.0 MCH 30.1 MCHC 33.4 RDW 17.6 H Plt Count 189 MPV 11.1 H Prelim Diff (Auto) Slide review pending Neut % (Auto) 79.9 H Lymph % (Auto) 8.5 L Bureau % (Auto) 11.2 H Eos % (Auto) 0.3 Baso % (Auto) 0.1 Neut # (Auto) 7.3 Lymph # (Auto) 0.8 L Bureau # (Auto) 1.0 H Eos # (Auto) 0.0 Baso # (Auto) 0.0 WBC Differential . Diff Scan Auto diff confirmed Differential Comment . Platelet Estimate Normal Platelet Morphology Enlarged H - Imaging Impressions Abdomen X-Ray 08/08/18 06:00 CONCLUSION: Improved bowel gas pattern. Assessment and Plan (1) Small bowel obstruction Status: Acute Code(s): K56.609 - Unspecified intestinal obstruction, unspecified as to partial versus complete obstruction (2) Ileitis Status: Acute Code(s): K52.9 - Noninfective gastroenteritis and colitis, unspecified - Plan agree w presnt therapy if no improvement pt willl need surgical intervention.
--- NOTE | 2018-08-08 15:48 | P.DIET ---
Nutritional Evaluation Screening comments: NPO Alert. Pt has been npo x 4 days. She was admitted with a SBO. Consult RD if needed.
--- NOTE | 2018-08-08 16:15 | P.PNGS ---
Subjective Patient reports: no new complaints Interval history: DAILY PROGRESS NOTE FOR SURGICAL ATTENDING, DR. TASIA BRASHER Patient has no complaints No pain complaints of her abdomen Does not want surgery today would like to wait another day or 2 if she can tolerate it Physical Exam Vital signs: Vital Signs 08/07/18 17:26 08/07/18 20:00 08/07/18 20:05 Temperature 97.7 F Pulse Rate 92 H 110 H Respiratory Rate 18 18 18 Blood Pressure 165/77 H Pulse Oximetry 94 L 94 L 08/08/18 00:00 08/08/18 07:45 08/08/18 08:00 Temperature 97.9 F 98.0 F Pulse Rate 77 71 92 H Respiratory Rate 19 19 17 Blood Pressure 102/56 L 139/68 Pulse Oximetry 94 L 98 94 L 08/08/18 15:24 Temperature Pulse Rate 89 Respiratory Rate 20 Blood Pressure Pulse Oximetry Intake & Output 08/07/18 08/08/18 08/08/18 19:59 06:59 18:59 Intake Total Output Total Balance Weight Intake: IV D5W/1/2 NS Inj 1,000 ML @ 125 mls/hr IV.CONT .Q8H [facility] Rx#: [id number] Cipro 400 MG/200 ML Inj 400 mg In 200 ml @ 200 mls/hr IV.SIG Q12H [facility] Rx#:[id number] Flagyl 500 MG Inj 100 ML @ 100 mls/hr IV.SIG Q8H [facility] Rx#: [id number] Oral Output: Gastric Drainage Right Nare Nasogastric Tube Other: # Voids Narrative: Alert and awake Sitting up in bed Says she is cold would like a blanket Abd: soft; mildly distended; minimally tender in lower abdomen mild fullness in the left upper quadrant No rebound or guarding Mild edema lower extremities Results - Labs 08/08/18 08:03 08/07/18 05:50 Laboratory Results - last 24 hr 08/08/18 08:03 WBC 9.1 RBC 4.34 Hgb 13.1 Hct 39.1 MCV 90.0 MCH 30.1 MCHC 33.4 RDW 17.6 H Plt Count 189 MPV 11.1 H Prelim Diff (Auto) Slide review pending Neut % (Auto) 79.9 H Lymph % (Auto) 8.5 L Park % (Auto) 11.2 H Eos % (Auto) 0.3 Baso % (Auto) 0.1 Neut # (Auto) 7.3 Lymph # (Auto) 0.8 L [place] # (Auto) 1.0 H Eos # (Auto) 0.0 Baso # (Auto) 0.0 WBC Differential . Diff Scan Auto diff confirmed Differential Comment . Platelet Estimate Normal Platelet Morphology Enlarged H - Imaging Imaging: ITS Impressions Abdomen/Pelvis CTA 08/05/18 00:00 CONCLUSION: 1. 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 Celiac and FLETCHER are patent. Central SMV and portal vein are patent. Therefore, mesenteric ischemia as an etiology for patient's small bowel obstruction and proximal ileitis is unlikely. 2. 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 3. Remainder of the exam is unchanged from earlier abdominal CT exam with redemonstration of acute small bowel obstruction secondary to severe wall thickening involving the proximal ileum in the central pelvis. No evidence for perforation, bowel infarction or abscess at this time. Chest X-Ray 08/05/18 00:00 CONCLUSION: No acute cardiopulmonary disease demonstrated. Mild chronic interstitial opacities are stable. Abdomen/Pelvis CT 08/05/18 23:49 CONCLUSION: 1. Approximately 10 cm long segment of severe wall thickening involving the proximal ileum within the pelvic cavity and with associated acute small bowel obstruction. The etiology of wall thickening is uncertain. Infectious, inflammatory and neoplastic etiologies are all in the differential. 2. Associated trace ascites. Nothing organized or drainable. No free air. 3. Diverticulosis of the colon without diverticulitis. 4. Patchy cortical thinning/scarring and cysts of both kidneys. There are also nonobstructing stones of the right kidney. 5. Bilateral adrenal nodularity, indeterminate but statistically most likely benign adenomatous change. 6. Aortoiliac atherosclerosis. No aneurysm seen. 7. Trace lung base atelectasis. 8. Coronary artery calcification. Visualized heart appears enlarged, mostly the left atrium. 9. Small hiatal hernia. Small Bowel X-Ray 08/07/18 00:00 CONCLUSION: Multiple dilated loops of small bowel. Markedly delayed transit of contrast in the small bowel. Contrast only progresses to the mid small bowel at 5 hours. Findings are suspicious for possible small bowel obstruction. Delayed films could be obtained to evaluate progress of contrast. Abdomen X-Ray 08/08/18 06:00 CONCLUSION: Improved bowel gas pattern. Abdominal x-ray: report reviewed, image reviewed Assessment and Plan - Assessment (1) Small bowel obstruction Code(s): K56.609 - Unspecified intestinal obstruction, unspecified as to partial versus complete obstruction Status: Acute Plan: 87 year old female with abdominal pain; SBO vs gastroenteritis vs adhesions npo abdominal exams pain control Small bowel follow-through reviewed Follow-up KUB shows some improvement She may require surgery but she does not want it done today Discussed with Dr. castillo He will be back on Thursday to reevaluate - Attending Attestation NOTE FOR SURGICAL ATTENDING, DR. TASIA BRASHER I attest that I had a [id number] encounter with the patient on the same day, and personally performed and documented my assessment and findings in the medical record. The following services were provided during this hospital visit: Chart data review, vital sign assessments/reviewing monitor data Review of consultations notes if present. Medication orders/review and/or management Ordering and/or reviewing lab tests Ordering and/or interpreting/reviewing x-rays and/or diagnostic studies Care of the patient and discussion of the patient with the care team Documentation time To help prompt me to consider important information that might be impacting today's encounter and assessment, Information from prior notes written by myself or my colleagues may have been "brought forward/copy and pasted" into today's note.
[2018-08-08] MEDS: Morphine Inj 4 MG/ML Vial IV.PUSH PRN (17:36)
[2018-08-09] MEDS: Pantoprazole Inj 40 MG Vial IV.PUSH SCH (02:14)
[2018-08-09] MEDS: Dextrose 5%/NaCl 0.45% Inj 1,000 ML IV.CONT SCH ×3 (03:45→21:17)
[2018-08-09] MEDS: Ciprofloxacin 400 MG/200 ML 400 MG/200 ML PIGGYBACK IV.SIG SCH ×2 (09:49→21:17)
[2018-08-09] MEDS: Sodium Chloride 0.9% 2 ML Flush BID IV.FLUSH SCH ×2 (09:49→21:17)
[2018-08-09] MEDS: Enoxaparin Inj 40 MG/0.4 ML Syringe SQ SCH (09:49)
--- NOTE | 2018-08-09 09:54 | XR ---
EXAM DATE: 08/09/2018 9:36 AM EST AGE/SEX: 87 years / Female INDICATIONS: Abdominal pain. CLINICAL DATA: This is the patient's subsequent encounter. Patient reports that signs and symptoms h ave been present for 4 - 6 days and indicates a pain score of 6/10. MEDICAL/SURGICAL HISTORY: . Gastroesophageal reflux disease. Hypertension. Transient ischemic a ttack. Rectal fistula. . Tonsillectomy. COMPARISON: [facility], SMALL BOWEL W GASTROGRAFIN, 08/07/2018. . FINDINGS: Multiple loops of distended small bowel are seen centrally in the abdomen. Stool and gas are noted i n a nondistended colon. Nasogastric tube is noted in place. No evidence of significant mass effect. CONCLUSION: Improvement but persistent small bowel ileus. No residual contrast is identified in the intestinal tract. Electronically signed by: Arash Smith MD 08/09/2018 9:53 AM EST
--- NOTE | 2018-08-09 10:28 | P.PNGI ---
Subjective Interval history: alsrt nad vss NGT in place draining bile Physical Exam Vital signs: Vital Signs 08/08/18 15:24 08/08/18 16:00 08/08/18 17:40 Temperature 98.0 F Pulse Rate 89 55 L Respiratory Rate 20 17 18 Blood Pressure 129/77 Pulse Oximetry 94 L 08/08/18 19:45 08/08/18 20:00 08/09/18 00:00 Temperature 97.8 F 98.0 F Pulse Rate 60 85 81 Respiratory Rate 18 18 18 Blood Pressure 143/61 H 139/80 Pulse Oximetry 95 94 L 95 08/09/18 08:00 Temperature 97.2 F L Pulse Rate 79 Respiratory Rate 17 Blood Pressure 155/93 H Pulse Oximetry 90 L Intake & Output 08/08/18 08/09/18 08/09/18 18:59 06:59 18:59 Intake Total 1300 / 1300 1400 / 1400 1000 / 1000 Output Total 350 / 350 550 / 550 Balance 950 / 950 850 / 850 1000 / 1000 Weight 76 kg Intake: IV 1300 / 1300 1400 / 1400 1000 / 1000 D5W/1/2 NS Inj 1,000 ML @ 75 1000 / 1000 1000 / 1000 1000 / 1000 mls/hr IV.CONT .[id number] [facility] Rx# :[id number] Cipro 400 MG/200 ML Inj 400 mg 200 / 200 200 / 200 In 200 ml @ 200 mls/hr IV.SIG Q12H [facility] Rx#:[id number] Flagyl 500 MG Inj 100 ML @ 100 100 / 100 200 / 200 mls/hr IV.SIG Q8H [facility] Rx#: [id number] Oral 0 / 0 Output: Gastric Drainage 350 / 350 550 / 550 Right Nare Nasogastric Tube 350 / 350 550 / 550 Other: # Voids 6 # Incontinent Voids 3 # Bowel Movements 0 - Routine Abdominal Exam Present: soft Comments: mild distention no rebound tenderness Results - Labs CBC & Chem 7: 08/08/18 08:03 08/07/18 05:50 Laboratory Results - last 24 hr 08/08/18 08:03 WBC Differential . Diff Scan Auto diff confirmed Platelet Estimate Normal Platelet Morphology Enlarged H - Imaging Impressions Abdomen X-Ray 08/09/18 00:00 CONCLUSION: Improvement but persistent small bowel ileus. No residual contrast is identified in the intestinal tract. Assessment and Plan (1) Small bowel obstruction Status: Acute Code(s): K56.609 - Unspecified intestinal obstruction, unspecified as to partial versus complete obstruction (2) Ileitis Status: Acute Code(s): K52.9 - Noninfective gastroenteritis and colitis, unspecified - Plan continue present therapy surgery following will probably require surgery at some point will sign off call if needed
--- NOTE | 2018-08-09 12:15 | P.DIET ---
Nutritional Evaluation Type of nutrition evaluation: follow-up Screening comments: NPO Alert. Pt has been npo x 5-days. She was admitted with a SBO. NGT in place. Please Consult RD if needed.
--- NOTE | 2018-08-09 12:37 | P.PN ---
Subjective Interval history: The patient reports that she passed some flatus this morning. No bowel movement. Denies abdominal pain. NG tube in place to low intermittent suction. Blood pressure is variable. Denies any chest pain or palpitations. Active Medications Generic Name Dose Route Start Last Admin Trade Name Freq PRN Reason Stop Dose Admin Enoxaparin Sodium 40 mg 08/06/18 09:00 08/09/18 09:49 Lovenox Inj SQ 40 mg DAILY TERRI Administration Metronidazole/Sodium Chloride 100 mls @ 100 mls/hr 08/06/18 10:00 08/09/18 12 :19 Flagyl 500 Mg Inj IV.SIG 100 mls/hr Q8H TERRI Administration Ciprofloxacin/Dextrose 400 mg in 200 mls @ 200 mls/hr 08/06/18 09:00 12:25 Cipro 400 Mg/200 Ml Inj IV.SIG Infused Q12H TERRI Infusion Dextrose/Sodium Chloride 1,000 mls @ 75 mls/hr 08/06/18 14:15 08/09/18 09:48 D5w/1/2 Ns Inj IV.CONT 125 mls/hr .[id number] TERRI Administration Labetalol HCl 10 mg 08/05/18 09:17 08/05/18 09:35 Trandate Inj IV.PUSH 10 mg Q4H PRN Administration SBP>180, DBP>100, HR>65 Morphine Sulfate 1 mg 08/05/18 02:03 Morphine Inj IV.PUSH Q3H PRN PAIN 3-5; IF UABLE TO TAKE PO Morphine Sulfate 3 mg 08/05/18 02:03 08/08/18 17:36 Morphine Inj IV.PUSH 3 mg Q3H PRN Administration PAIN 6-10;IF UNABLE TO TAKE PO Naloxone HCl 0.4 mg 08/05/18 02:03 Narcan Inj IV.PUSH UNSCH PRN SEE LABEL COMMENTS Ondansetron HCl 4 mg 08/05/18 02:03 08/07/18 18:37 Zofran Inj IV.PUSH 4 mg Q6H PRN Administration NAUSEA OR VOMITING Pantoprazole Sodium 40 mg 08/05/18 03:00 08/09/18 02:14 Protonix Inj IV.PUSH 40 mg Q24H TERRI Administration Sodium Chloride 2 ml 08/05/18 21:00 08/09/18 09:49 Ns Flush IV.FLUSH 2 ml BID TERRI Administration Sodium Chloride 2 ml 08/05/18 09:25 08/06/18 13:32 Ns Flush IV.FLUSH 2 ml PRN PRN Administration FLUSH AFTER USING IV ACCESS Physical Exam Vital signs: Vital Signs 08/08/18 15:24 08/08/18 16:00 08/08/18 17:40 Temperature 98.0 F Pulse Rate 89 55 L Respiratory Rate 20 17 18 Blood Pressure 129/77 Pulse Oximetry 94 L 08/08/18 19:45 08/08/18 20:00 08/09/18 00:00 Temperature 97.8 F 98.0 F Pulse Rate 60 85 81 Respiratory Rate 18 18 18 Blood Pressure 143/61 H 139/80 Pulse Oximetry 95 94 L 95 08/09/18 08:00 08/09/18 12:06 Temperature 97.2 F L Pulse Rate 79 Respiratory Rate 17 Blood Pressure 155/93 H Pulse Oximetry 90 L 90 L Intake & Output 08/08/18 08/09/18 08/09/18 18:59 06:59 18:59 Intake Total 1300 / 1300 1400 / 1400 1200 / 1200 Output Total 350 / 350 550 / 550 Balance 950 / 950 850 / 850 1200 / 1200 Weight 167 lb 8.821 oz Intake: IV 1300 / 1300 1400 / 1400 1200 / 1200 D5W/1/2 NS Inj 1,000 ML @ 75 1000 / 1000 1000 / 1000 1000 / 1000 mls/hr IV.CONT .[id number] TERRI Rx# :[id number] Cipro 400 MG/200 ML Inj 400 mg 200 / 200 200 / 200 200 / 200 In 200 ml @ 200 mls/hr IV.SIG Q12H TERRI Rx#:[id number] Flagyl 500 MG Inj 100 ML @ 100 100 / 100 200 / 200 mls/hr IV.SIG Q8H TERRI Rx#: [id number] Oral 0 / 0 Output: Gastric Drainage 350 / 350 550 / 550 Right Nare Nasogastric Tube 350 / 350 550 / 550 Other: # Voids 6 # Incontinent Voids 3 # Bowel Movements 0 - Constitutional Comments: No acute distress with NG tube in place - Routine Respiratory Exam Comments: Clear to auscultation with moderately reduced air exchange bilaterally. - Routine Cardiovascular Exam Comments: IRRR with soft systolic murmur - Routine Abdominal Exam Comments: Soft, moderate distention but less than prior examination, hypoactive bowel sounds, nontender, no masses Results - Labs CBC & Chem 7: 08/08/18 08:03 08/07/18 05:50 - Imaging Impressions Abdomen X-Ray 08/09/18 00:00 CONCLUSION: Improvement but persistent small bowel ileus. No residual contrast is identified in the intestinal tract. Assessment and Plan - Assessment (1) Small bowel obstruction Code(s): K56.609 - Unspecified intestinal obstruction, unspecified as to partial versus complete obstruction Status: Acute Plan: She did pass some flatus this morning. Repeat abdominal x-ray reveals minimal improvement. NG output only 100 cc since 7 AM this morning. Continue with IV fluids. Will defer decision for surgery to general surgery. (2) Ileitis Code(s): K52.9 - Noninfective gastroenteritis and colitis, unspecified Status : Acute Plan: Underlying etiology unclear. Continue with IV antibiotics. Will follow. (3) Chronic atrial fibrillation Code(s): I48.2 - Chronic atrial fibrillation Status: Chronic Plan: Ventricular rate is well controlled. Patient normally receives Eliquis. Continue Lovenox subcutaneously which could be held prior to surgical intervention if needed. (4) Chronic obstructive pulmonary disease Code(s): J44.9 - Chronic obstructive pulmonary disease, unspecified Status: Chronic Plan: The patient has moderately severe COPD. Respiratory status is stable. She will continue with albuterol nebulizer treatments. Continue with supplemental oxygen. Patient normally receives oxygen only at night. Encourage incentive spirometry. Out of bed as much as possible (5) Hypertension Code(s): I10 - Essential (primary) hypertension Status: Chronic Plan: Blood pressure under adequate control at this time. Labetalol IV available as needed. (6) GERD (gastroesophageal reflux disease) Code(s): K21.9 - Gastro-esophageal reflux disease without esophagitis Status: Chronic Plan: Continue with PPI (7) Hypothyroidism Code(s): E03.9 - Hypothyroidism, unspecified Status: Chronic Plan: Levothyroxine on hold until patient can take p.o. (4) Chronic obstructive pulmonary disease Qualifiers: COPD type: emphysema Emphysema type: panlobular Qualified Code(s): J43.1 - Panlobular emphysema (5) Hypertension Qualifiers: Hypertension type: essential hypertension Qualified Code(s): I10 - Essential (primary) hypertension (6) GERD (gastroesophageal reflux disease) Qualifiers: Esophagitis presence: without esophagitis Qualified Code(s): K21.9 - Gastro- esophageal reflux disease without esophagitis (7) Hypothyroidism Qualifiers: Hypothyroidism type: unspecified Qualified Code(s): E03.9 - Hypothyroidism, unspecified
--- NOTE | 2018-08-09 16:54 | P.PNGS ---
Subjective Interval history: Resting in bed Reports she has passed flatus Physical Exam Vital signs: Vital Signs 08/08/18 17:40 08/08/18 19:45 08/08/18 20:00 Temperature 97.8 F Pulse Rate 60 85 Respiratory Rate 18 18 Blood Pressure 143/61 H Pulse Oximetry 95 94 L 08/09/18 00:00 08/09/18 08:00 08/09/18 12:00 Temperature 98.0 F 97.2 F L 97.4 F L Pulse Rate 81 79 88 Respiratory Rate 18 19 Blood Pressure 139/80 155/93 H 136/76 Pulse Oximetry 95 90 L 93 L 08/09/18 12:06 Temperature Pulse Rate Respiratory Rate Blood Pressure Pulse Oximetry 90 L Intake & Output 08/08/18 08/09/18 08/09/18 18:59 06:59 18:59 Intake Total 1300 / 1300 1400 / 1400 1300 / 1300 Output Total 350 / 350 550 / 550 Balance 950 / 950 850 / 850 1300 / 1300 Weight 76 kg Intake: IV 1300 / 1300 1400 / 1400 1300 / 1300 D5W/1/2 NS Inj 1,000 ML @ 75 1000 / 1000 1000 / 1000 1000 / 1000 mls/hr IV.CONT .[id number] TERRI Rx# :[id number] Cipro 400 MG/200 ML Inj 400 mg 200 / 200 200 / 200 200 / 200 In 200 ml @ 200 mls/hr IV.SIG Q12H TERRI Rx#:[id number] Flagyl 500 MG Inj 100 ML @ 100 100 / 100 200 / 200 100 / 100 mls/hr IV.SIG Q8H TERRI Rx#: [id number] Oral 0 / 0 Output: Gastric Drainage 350 / 350 550 / 550 Right Nare Nasogastric Tube 350 / 350 550 / 550 Other: # Voids 6 # Incontinent Voids 3 # Bowel Movements 0 Narrative: Alert and awake Abd: mildly distended; non tender Results - Labs 08/15/18 06:35 08/17/18 04:41 - Imaging Imaging: ITS Impressions Abdomen/Pelvis CTA 08/05/18 00:00 CONCLUSION: 1. 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 Celiac and FLETCHER are patent. Central SMV and portal vein are patent. Therefore, mesenteric ischemia as an etiology for patient's small bowel obstruction and proximal ileitis is unlikely. 2. 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 3. Remainder of the exam is unchanged from earlier abdominal CT exam with redemonstration of acute small bowel obstruction secondary to severe wall thickening involving the proximal ileum in the central pelvis. No evidence for perforation, bowel infarction or abscess at this time. Chest X-Ray 08/05/18 00:00 CONCLUSION: No acute cardiopulmonary disease demonstrated. Mild chronic interstitial opacities are stable. Abdomen/Pelvis CT 08/05/18 23:49 CONCLUSION: 1. Approximately 10 cm long segment of severe wall thickening involving the proximal ileum within the pelvic cavity and with associated acute small bowel obstruction. The etiology of wall thickening is uncertain. Infectious, inflammatory and neoplastic etiologies are all in the differential. 2. Associated trace ascites. Nothing organized or drainable. No free air. 3. Diverticulosis of the colon without diverticulitis. 4. Patchy cortical thinning/scarring and cysts of both kidneys. There are also nonobstructing stones of the right kidney. 5. Bilateral adrenal nodularity, indeterminate but statistically most likely benign adenomatous change. 6. Aortoiliac atherosclerosis. No aneurysm seen. 7. Trace lung base atelectasis. 8. Coronary artery calcification. Visualized heart appears enlarged, mostly the left atrium. 9. Small hiatal hernia. Small Bowel X-Ray 08/07/18 00:00 CONCLUSION: Multiple dilated loops of small bowel. Markedly delayed transit of contrast in the small bowel. Contrast only progresses to the mid small bowel at 5 hours. Findings are suspicious for possible small bowel obstruction. Delayed films could be obtained to evaluate progress of contrast. Abdomen X-Ray 08/09/18 00:00 CONCLUSION: Improvement but persistent small bowel ileus. No residual contrast is identified in the intestinal tract. Assessment and Plan - Assessment (1) Small bowel obstruction Code(s): K56.609 - Unspecified intestinal obstruction, unspecified as to partial versus complete obstruction Status: Resolved Plan: 87 year old female with abdominal pain; SBO vs gastroenteritis vs adhesions -KUB shows slight improvement -Will start a trial of clamping NGT and clears -Check gastric residuals; connect back to LIWS if greater than 250cc -OOB -IVF -If fails trial--- will need to discuss operative intervention although at this point patient does not want to have surgery and would like to exhaust all other options first - Attending Attestation The exam, history, and the medical decision-making described in the above note were completed with the assistance of the mid-level provider. I reviewed and agree with the findings presented. I attest that I had a [id number] encounter with the patient on the same day, and personally performed and documented my assessment and findings in the medical record. Patient with SBO Abdominal exam soft, nontender, non-surgical Recommend continue non-operative management, but patient will need surgery if non-resolution occurs d/w patient
[2018-08-09] MEDS: Morphine Inj 4 MG/ML Vial IV.PUSH PRN (21:24)
[2018-08-10] MEDS: Pantoprazole Inj 40 MG Vial IV.PUSH SCH (02:44)
[2018-08-10] MEDS: Dextrose 5%/NaCl 0.45% Inj 1,000 ML IV.CONT SCH ×3 (06:01→23:07)
[2018-08-10] MEDS: Enoxaparin Inj 40 MG/0.4 ML Syringe SQ SCH (08:28)
[2018-08-10] MEDS: Ciprofloxacin 400 MG/200 ML 400 MG/200 ML PIGGYBACK IV.SIG SCH ×2 (08:29→20:50)
[2018-08-10] MEDS: Sodium Chloride 0.9% 2 ML Flush BID IV.FLUSH SCH ×2 (08:30→20:51)
--- NOTE | 2018-08-10 09:12 | P.PN ---
Subjective Interval history: NG tube has been clamped. Patient taking small amount of clear liquids. NG residuals are still high. Patient has had no nausea or vomiting. Ambulated in halls yesterday with physical therapy. Reports one episode of flatus yesterday. No bowel movements. No chest pain or shortness of breath. Continues with oxygen at 2 L/min per nasal cannula. Slept well last night. She is out of bed in a chair this morning. Active Medications Generic Name Dose Route Start Last Admin Trade Name Freq PRN Reason Stop Dose Admin Enoxaparin Sodium 40 mg 08/06/18 09:00 08/10/18 08:28 Lovenox Inj SQ 40 mg DAILY TERRI Administration Ciprofloxacin/Dextrose 400 mg in 200 mls @ 200 mls/hr 08/06/18 09:00 08:29 Cipro 400 Mg/200 Ml Inj IV.SIG 200 mls/hr Q12H TERRI Administration Dextrose/Sodium Chloride 1,000 mls @ 75 mls/hr 08/06/18 14:15 08/10/18 06:01 D5w/1/2 Ns Inj IV.CONT 125 mls/hr .[id number] TERRI Administration Metronidazole/Sodium Chloride 100 mls @ 100 mls/hr 08/09/18 20:00 08/10/18 05 :30 Flagyl 500 Mg Inj IV.SIG Infused Q8H TERRI Infusion Labetalol HCl 10 mg 08/05/18 09:17 08/05/18 09:35 Trandate Inj IV.PUSH 10 mg Q4H PRN Administration SBP>180, DBP>100, HR>65 Morphine Sulfate 1 mg 08/05/18 02:03 08/09/18 21:24 Morphine Inj IV.PUSH 1 mg Q3H PRN Administration PAIN 3-5; IF UABLE TO TAKE PO Morphine Sulfate 3 mg 08/05/18 02:03 08/08/18 17:36 Morphine Inj IV.PUSH 3 mg Q3H PRN Administration PAIN 6-10;IF UNABLE TO TAKE PO Naloxone HCl 0.4 mg 08/05/18 02:03 Narcan Inj IV.PUSH UNSCH PRN SEE LABEL COMMENTS Ondansetron HCl 4 mg 08/05/18 02:03 08/09/18 21:15 Zofran Inj IV.PUSH 4 mg Q6H PRN Administration NAUSEA OR VOMITING Pantoprazole Sodium 40 mg 08/05/18 03:00 08/10/18 02:44 Protonix Inj IV.PUSH 40 mg Q24H TERRI Administration Sodium Chloride 2 ml 08/05/18 21:00 08/10/18 08:30 Ns Flush IV.FLUSH Not Given BID TERRI Sodium Chloride 2 ml 08/05/18 09:25 08/06/18 13:32 Ns Flush IV.FLUSH 2 ml PRN PRN Administration FLUSH AFTER USING IV ACCESS Physical Exam Vital signs: Vital Signs 08/09/18 12:00 08/09/18 12:06 08/09/18 16:00 Temperature 97.4 F L 97.3 F L Pulse Rate 88 88 Respiratory Rate 19 18 Blood Pressure 136/76 173/86 H Pulse Oximetry 93 L 90 L 90 L 08/09/18 20:00 08/09/18 21:50 08/10/18 00:00 Temperature 97.8 F 97.9 F Pulse Rate 80 64 Respiratory Rate 17 22 18 Blood Pressure 147/68 H 118/83 Pulse Oximetry 92 L 96 Intake & Output 08/09/18 08/10/18 08/10/18 18:59 06:59 18:59 Intake Total 2300 / 2300 1400 / 1400 Output Total 450 / 450 900 / 900 Balance 1850 / 1850 500 / 500 Weight 167 lb 8.821 oz Intake: IV 2300 / 2300 1400 / 1400 D5W/1/2 NS Inj 1,000 ML @ 75 2000 / 2000 1000 / 1000 mls/hr IV.CONT .[id number] TERRI Rx# :[id number] Cipro 400 MG/200 ML Inj 400 mg 200 / 200 200 / 200 In 200 ml @ 200 mls/hr IV.SIG Q12H TERRI Rx#:[id number] Flagyl 500 MG Inj 100 ML @ 100 100 / 100 200 / 200 mls/hr IV.SIG Q8H TERRI Rx#: [id number] Oral 0 / 0 Output: Gastric Drainage 450 / 450 900 / 900 Right Nare Nasogastric Tube 450 / 450 900 / 900 Other: # Voids 3 4 # Bowel Movements 0 - Constitutional Comments: No acute distress with NG tube in place sitting up in chair - Routine Respiratory Exam Comments: Clear to auscultation but moderately reduced air exchange bilaterally - Routine Cardiovascular Exam Comments: IRRR - Routine Abdominal Exam Comments: Obese, moderately distended, soft, nontender, no bowel sounds heard Results - Labs CBC & Chem 7: 08/08/18 08:03 08/07/18 05:50 - Imaging Impressions Abdomen X-Ray 08/09/18 00:00 CONCLUSION: Improvement but persistent small bowel ileus. No residual contrast is identified in the intestinal tract. Assessment and Plan - Assessment (1) Small bowel obstruction Code(s): K56.609 - Unspecified intestinal obstruction, unspecified as to partial versus complete obstruction Status: Acute Plan: The patient is still having high NG residuals. Has not had significant flatus or BM since prior to admission. Will defer decision to proceed with surgery to general surgery. The patient is at moderate to high risk for complications due to her respiratory status. I have discussed this with her. The patient inquired what would happen if she decided not to proceed with any surgical intervention and the small bowel obstruction persisted. I discussed with her that she would be unable to take adequate nutrition and would likely from malnutrition. She would likely have persistent nausea and vomiting as a result of the small bowel obstruction. If this were the case, she would be best served to be referred to hospice for management of her symptoms to provide comfort. She is not ready to make a decision to refuse surgical intervention at this time. (2) Ileitis Code(s): K52.9 - Noninfective gastroenteritis and colitis, unspecified Status : Acute Plan: Underlying etiology unclear. Continue with IV antibiotics. Will follow. (3) Chronic atrial fibrillation Code(s): I48.2 - Chronic atrial fibrillation Status: Chronic Plan: Ventricular rate is well controlled. Patient normally receives Eliquis. Continue Lovenox subcutaneously which could be held prior to surgical intervention if needed. (4) Chronic obstructive pulmonary disease Code(s): J44.9 - Chronic obstructive pulmonary disease, unspecified Status: Chronic Plan: The patient has moderately severe COPD. She is at moderate to high risk for persistent respiratory failure following a surgical procedure. I discussed this with the patient. She is aware that this can occur. If it does the patient's healthcare surrogate would need to make a decision as to whether to continue her with mechanical ventilation or, withdraw mechanical ventilation with comfort measures. She states that her son, Rinku, is her healthcare surrogate and would make that decision. I am going to call him to discuss the situation so that he is aware of the potential risks of the surgery. (5) Hypertension Code(s): I10 - Essential (primary) hypertension Status: Chronic Plan: Blood pressure under adequate control at this time. Labetalol IV available as needed. (6) GERD (gastroesophageal reflux disease) Code(s): K21.9 - Gastro-esophageal reflux disease without esophagitis Status: Chronic Plan: Continue with PPI (7) Hypothyroidism Code(s): E03.9 - Hypothyroidism, unspecified Status: Chronic Plan: Levothyroxine on hold until patient can take p.o. (4) Chronic obstructive pulmonary disease Qualifiers: COPD type: emphysema Emphysema type: panlobular Qualified Code(s): J43.1 - Panlobular emphysema (5) Hypertension Qualifiers: Hypertension type: essential hypertension Qualified Code(s): I10 - Essential (primary) hypertension (6) GERD (gastroesophageal reflux disease) Qualifiers: Esophagitis presence: without esophagitis Qualified Code(s): K21.9 - Gastro- esophageal reflux disease without esophagitis (7) Hypothyroidism Qualifiers: Hypothyroidism type: unspecified Qualified Code(s): E03.9 - Hypothyroidism, unspecified
--- NOTE | 2018-08-10 20:55 | P.PNGS ---
Subjective Interval history: Resting in bed Still with no flatus Son (Ed) and Grandson (Jone) at bedside Physical Exam Vital signs: Vital Signs 08/09/18 21:50 08/10/18 00:00 08/10/18 08:00 Temperature 97.9 F 97.6 F Pulse Rate 64 80 Respiratory Rate 22 18 17 Blood Pressure 118/83 137/75 Pulse Oximetry 96 95 08/10/18 12:00 08/10/18 16:00 08/10/18 17:53 Temperature 97.9 F 97.3 F L Pulse Rate 88 84 89 Respiratory Rate 17 17 16 Blood Pressure 162/73 H 166/78 H Pulse Oximetry 97 97 08/10/18 20:00 Temperature 98.3 F Pulse Rate 90 Respiratory Rate 21 Blood Pressure 159/79 H Pulse Oximetry 97 Intake & Output 08/10/18 08/10/18 08/11/18 06:59 18:59 06:59 Intake Total 1400 / 1400 2372 / 2372 Output Total 900 / 900 625 / 625 Balance 500 / 500 1747 / 1747 Weight 76 kg Intake: IV 1400 / 1400 1300 / 1300 D5W/1/2 NS Inj 1,000 ML @ 75 1000 / 1000 1000 / 1000 mls/hr IV.CONT .[id number] TERRI Rx# :[id number] Cipro 400 MG/200 ML Inj 400 mg 200 / 200 200 / 200 In 200 ml @ 200 mls/hr IV.SIG Q12H TERRI Rx#:[id number] Flagyl 500 MG Inj 100 ML @ 100 200 / 200 100 / 100 mls/hr IV.SIG Q8H TERRI Rx#: [id number] Oral 1072 / 1072 Output: Gastric Drainage 900 / 900 625 / 625 Right Nare Nasogastric Tube 900 / 900 625 / 625 Other: # Voids 4 4 Narrative: Alert and awake Abd: remains soft but distended; mildly tender in periumbilical region NGT in place Results - Labs 08/15/18 06:35 08/17/18 04:41 - Imaging Imaging: ITS Impressions Abdomen/Pelvis CTA 08/05/18 00:00 CONCLUSION: 1. 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 Celiac and FLETCHER are patent. Central SMV and portal vein are patent. Therefore, mesenteric ischemia as an etiology for patient's small bowel obstruction and proximal ileitis is unlikely. 2. 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 3. Remainder of the exam is unchanged from earlier abdominal CT exam with redemonstration of acute small bowel obstruction secondary to severe wall thickening involving the proximal ileum in the central pelvis. No evidence for perforation, bowel infarction or abscess at this time. Chest X-Ray 08/05/18 00:00 CONCLUSION: No acute cardiopulmonary disease demonstrated. Mild chronic interstitial opacities are stable. Abdomen/Pelvis CT 08/05/18 23:49 CONCLUSION: 1. Approximately 10 cm long segment of severe wall thickening involving the proximal ileum within the pelvic cavity and with associated acute small bowel obstruction. The etiology of wall thickening is uncertain. Infectious, inflammatory and neoplastic etiologies are all in the differential. 2. Associated trace ascites. Nothing organized or drainable. No free air. 3. Diverticulosis of the colon without diverticulitis. 4. Patchy cortical thinning/scarring and cysts of both kidneys. There are also nonobstructing stones of the right kidney. 5. Bilateral adrenal nodularity, indeterminate but statistically most likely benign adenomatous change. 6. Aortoiliac atherosclerosis. No aneurysm seen. 7. Trace lung base atelectasis. 8. Coronary artery calcification. Visualized heart appears enlarged, mostly the left atrium. 9. Small hiatal hernia. Small Bowel X-Ray 08/07/18 00:00 CONCLUSION: Multiple dilated loops of small bowel. Markedly delayed transit of contrast in the small bowel. Contrast only progresses to the mid small bowel at 5 hours. Findings are suspicious for possible small bowel obstruction. Delayed films could be obtained to evaluate progress of contrast. Abdomen X-Ray 08/09/18 00:00 CONCLUSION: Improvement but persistent small bowel ileus. No residual contrast is identified in the intestinal tract. Assessment and Plan - Assessment (1) Small bowel obstruction Code(s): K56.609 - Unspecified intestinal obstruction, unspecified as to partial versus complete obstruction Status: Resolved Plan: 87 year old female with abdominal pain; SBO vs gastroenteritis vs adhesions -Continue a trial of clamp and clears and continue to check gastric residuals -Discussed with patient and family--patient not progressing and will likely need operative intervention -KUB in AM -If no improvement will further discuss operative plan--- discussed risks such as prolong need for mechanical ventilation post op -I will call family in the morning with an update---I have also provided the son and grandson with my phone number should they have any questions - Attending Attestation The exam, history, and the medical decision-making described in the above note were completed with the assistance of the mid-level provider. I reviewed and agree with the findings presented. I attest that I had a [id number] encounter with the patient on the same day, and personally performed and documented my assessment and findings in the medical record. Patient with SBO Abdominal exam soft, nontender, non-surgical Recommend proceeding with surgery if does not resolve in next 24-48h d/w patient d/w family, they will agree to surgery if needed
--- NOTE | 2018-08-10 21:23 | XR ---
EXAM DATE: 08/10/2018 9:19 PM EST AGE/SEX: 87 years / Female INDICATIONS: SBO CLINICAL DATA: This is the patient's subsequent encounter. Patient reports that signs and symptoms h ave been present for 1 week and indicates a pain score of 4/10. MEDICAL/SURGICAL HISTORY: . Gastro esophageal reflux disease. Hypertension. Transient ischemic attack. Rectal fistula. . Tonsillectomy. COMPARISON: [facility] [place], ABDOMEN 1V KUB, 08/09/2018. . FINDINGS: Reidentified are multiple dilated loops of small bowel and gaseous distention of the stomach. Enteri c tube is present with side-port overlying the proximal stomach. There is a relative paucity of dista l bowel gas though there is some air in the rectum. CONCLUSION: Persistent dilated loops of small bowel. Electronically signed by: Antonio Mccray MD 08/10/2018 9:22 PM EST
[2018-08-11] MEDS: Pantoprazole Inj 40 MG Vial IV.PUSH SCH (03:06)
[2018-08-11] MEDS: Dextrose 5%/NaCl 0.45% Inj 1,000 ML IV.CONT SCH ×4 (07:55→23:38)
[2018-08-11] MEDS: Sodium Chloride 0.9% 2 ML Flush BID IV.FLUSH SCH ×2 (08:02→21:14)
[2018-08-11] MEDS: Enoxaparin Inj 40 MG/0.4 ML Syringe SQ SCH (08:02)
[2018-08-11] MEDS: Ciprofloxacin 400 MG/200 ML 400 MG/200 ML PIGGYBACK IV.SIG SCH (08:02)
--- NOTE | 2018-08-11 08:42 | P.PN ---
Subjective Interval history: NG tube to low intermittent suction. Output remains significant. Denies abdominal pain or nausea. Patient is currently n.p.o. Blood pressure under adequate control. Respiratory status is stable. Comfortable on oxygen at 2 L/ min per nasal cannula Active Medications Generic Name Dose Route Start Last Admin Trade Name Freq PRN Reason Stop Dose Admin Albuterol 1 ampul 08/10/18 20:00 08/11/18 07:52 Duoneb Neb (Ciaran) NEB 1 ampul TID NEB CIARAN Administration Albuterol 1 ampul 08/10/18 17:13 08/10/18 17:52 Duoneb Neb (Prn) NEB 1 ampul Q2HR NEB PRN Administration SHORTNESS OF BREATH Dextrose/Sodium Chloride 1,000 mls @ 75 mls/hr 08/06/18 14:15 08/11/18 07:55 D5w/1/2 Ns Inj IV.CONT 75 mls/hr .[id number] [facility]AN Administration Labetalol HCl 10 mg 08/05/18 09:17 08/05/18 09:35 Trandate Inj IV.PUSH 10 mg Q4H PRN Administration SBP>180, DBP>100, HR>65 Morphine Sulfate 1 mg 08/05/18 02:03 08/09/18 21:24 Morphine Inj IV.PUSH 1 mg Q3H PRN Administration PAIN 3-5; IF UABLE TO TAKE PO Morphine Sulfate 3 mg 08/05/18 02:03 08/08/18 17:36 Morphine Inj IV.PUSH 3 mg Q3H PRN Administration PAIN 6-10;IF UNABLE TO TAKE PO Naloxone HCl 0.4 mg 08/05/18 02:03 Narcan Inj IV.PUSH UNSCH PRN SEE LABEL COMMENTS Ondansetron HCl 4 mg 08/05/18 02:03 08/11/18 03:12 Zofran Inj IV.PUSH 4 mg Q6H PRN Administration NAUSEA OR VOMITING Pantoprazole Sodium 40 mg 08/05/18 03:00 08/11/18 03:06 Protonix Inj IV.PUSH 40 mg Q24H CIARAN Administration Sodium Chloride 2 ml 08/05/18 21:00 08/11/18 08:02 Ns Flush IV.FLUSH Not Given BID CIARAN Sodium Chloride 2 ml 08/05/18 09:25 08/06/18 13:32 Ns Flush IV.FLUSH 2 ml PRN PRN Administration FLUSH AFTER USING IV ACCESS Physical Exam Vital signs: Vital Signs 08/10/18 12:00 08/10/18 16:00 08/10/18 17:53 Temperature 97.9 F 97.3 F L Pulse Rate 88 84 89 Respiratory Rate 17 17 16 Blood Pressure 162/73 H 166/78 H Pulse Oximetry 97 97 08/10/18 20:00 08/11/18 00:00 08/11/18 07:53 Temperature 98.3 F 97.9 F Pulse Rate 90 91 H 83 Respiratory Rate 21 21 18 Blood Pressure 159/79 H 122/70 Pulse Oximetry 97 97 08/11/18 07:54 Temperature Pulse Rate Respiratory Rate Blood Pressure Pulse Oximetry 92 L Intake & Output 08/10/18 08/11/18 08/11/18 18:59 06:59 18:59 Intake Total 2372 / 2372 400 / 400 1000 / 1000 Output Total 625 / 625 1185 / 1185 50 / 50 Balance 1747 / 1747 -785 / -785 950 / 950 Weight 167 lb 8.821 oz Intake: IV 1300 / 1300 400 / 400 1000 / 1000 D5W/1/2 NS Inj 1,000 ML @ 75 1000 / 1000 1000 / 1000 mls/hr IV.CONT .[id number] [facility] Rx# :[id number] Cipro 400 MG/200 ML Inj 400 mg 200 / 200 200 / 200 In 200 ml @ 200 mls/hr IV.SIG Q12H [facility] Rx#:[id number] Flagyl 500 MG Inj 100 ML @ 100 100 / 100 200 / 200 mls/hr IV.SIG Q8H [facility] Rx#: [id number] Oral 1072 / 1072 Output: Urine 60 / 60 50 / 50 Gastric Drainage 625 / 625 1125 / 1125 Right Nare Nasogastric Tube 625 / 625 1125 / 1125 Other: # Voids 4 4 - Constitutional no acute distress - Routine Respiratory Exam Comments: Clear to auscultation but moderately severe reduced air exchange bilaterally. - Routine Cardiovascular Exam Comments: IRRR - Routine Abdominal Exam Comments: Distended, soft, nontender with no bowel sounds present Results - Labs CBC & Chem 7: 08/08/18 08:03 08/07/18 05:50 - Imaging Impressions Abdomen X-Ray 08/10/18 00:00 CONCLUSION: Persistent dilated loops of small bowel. Assessment and Plan - Assessment (1) Small bowel obstruction Code(s): K56.609 - Unspecified intestinal obstruction, unspecified as to partial versus complete obstruction Status: Acute Plan: Small bowel obstruction persists. Patient will likely need surgical intervention. Have ordered follow-up KUB for this morning. Patient and family are aware of risk of proceeding with surgical treatment, however, with persistent small bowel obstruction there is no other course of treatment. Will defer timing of surgical intervention to surgery. I have held Lovenox this morning. (2) Ileitis Code(s): K52.9 - Noninfective gastroenteritis and colitis, unspecified Status : Acute Plan: Underlying etiology unclear. Discontinue IV antibiotics. Patient likely to undergo small bowel resection for obstruction (3) Chronic atrial fibrillation Code(s): I48.2 - Chronic atrial fibrillation Status: Chronic Plan: Ventricular rate is well controlled. Will hold Lovenox in preparation for surgical intervention. Will need to be resumed postoperatively. (4) Chronic obstructive pulmonary disease Code(s): J44.9 - Chronic obstructive pulmonary disease, unspecified Status: Chronic Plan: The patient has moderately severe COPD, however, respiratory status is stable. Continue with nebulizer treatments, oxygen and incentive spirometry. Patient at increased risk for chronic respiratory failure following surgical intervention requiring prolonged intubation and mechanical ventilation. (5) Hypertension Code(s): I10 - Essential (primary) hypertension Status: Chronic Plan: Blood pressure under adequate control at this time. Labetalol IV available as needed. (6) GERD (gastroesophageal reflux disease) Code(s): K21.9 - Gastro-esophageal reflux disease without esophagitis Status: Chronic Plan: Continue with PPI (7) Hypothyroidism Code(s): E03.9 - Hypothyroidism, unspecified Status: Chronic Plan: Levothyroxine on hold until patient can take p.o. (4) Chronic obstructive pulmonary disease Qualifiers: COPD type: emphysema Emphysema type: panlobular Qualified Code(s): J43.1 - Panlobular emphysema (5) Hypertension Qualifiers: Hypertension type: essential hypertension Qualified Code(s): I10 - Essential (primary) hypertension (6) GERD (gastroesophageal reflux disease) Qualifiers: Esophagitis presence: without esophagitis Qualified Code(s): K21.9 - Gastro- esophageal reflux disease without esophagitis (7) Hypothyroidism Qualifiers: Hypothyroidism type: unspecified Qualified Code(s): E03.9 - Hypothyroidism, unspecified
--- NOTE | 2018-08-11 14:08 | XR ---
EXAM DATE: 08/11/2018 2:04 PM EST AGE/SEX: 87 years / Female INDICATIONS: Small bowel obstruction. CLINICAL DATA: This is the patient's subsequent encounter. Patient reports that signs and symptoms h ave been present for 1 week and indicates a pain score of 0/10. MEDICAL/SURGICAL HISTORY: Hypertension. None. COMPARISON: [facility] [place], ABDOMEN 1V KUB, 08/10/2018. . FINDINGS: The examination demonstrates multiple loops of moderately dilated, air-filled small bowel within the midabdomen. There is still some gas and stool seen within the colon. The exam would suggest adynamic ileus. Follow-up to ensure resolution would be warranted. No free intraperitoneal air is identified. There is a nasogastric tube present within the stomach. There are small bilateral effusions in the lung bases. CONCLUSION: There are multiple dilated loops of air-filled small bowel suggest ileus. This exam is similar to a p rior dated 08/10/2018. Electronically signed by: Josse Cobian MD 08/11/2018 2:06 PM EST
[2018-08-11] MEDS ORDERED: Sugammadex Inj 200 MG/2 ML Vial IV.PUSH ONE ×2 (15:21→19:01)
[2018-08-11] MEDS ORDERED: Bupivacaine/Epinephrine PF Inj 0.5% 30 ML Vial ONE (15:59)
[2018-08-11] MEDS ORDERED: Metoprolol Tartrate 25 MG Tablet PO ONE (16:20)
[2018-08-11] MEDS ORDERED: Chlorhexidine Gluconate 2% 1 Pack (2 Cloths) TOPICAL ONE (16:20)
[2018-08-11] MEDS ORDERED: Ciprofloxacin 400 MG/200 ML 400 MG/200 ML PIGGYBACK IV.SIG ONE (16:42)
[2018-08-11] MEDS ORDERED: Glycopyrrolate Inj 1 MG/5 ML Syringe IV.PUSH ONE (16:52)
[2018-08-11] MEDS ORDERED: Normosol-R pH 7.4 Inj 1,000 ML IV.CONT ONE (16:52)
[2018-08-11] MEDS ORDERED: Lidocaine PF 1% Inj 5 ML Syringe OTHER ONE (16:52)
[2018-08-11] MEDS ORDERED: Phenylephrine/NS 1000 MCG/10ML Syringe IV.PUSH ONE (16:52)
[2018-08-11] MEDS ORDERED: Sodium Chlor 0.9% Inj 500 ML IV.SIG ONE (17:00)
[2018-08-11] MEDS ORDERED: fentaNYL Citrate Inj 100 MCG/2 ML Ampul ONE ×2 (19:31)
[2018-08-11] MEDS ORDERED: *morphine SULFATE 4 MG/ML PERIprocedure ONLY ONE (20:24)
[2018-08-12] MEDS: Pantoprazole Inj 40 MG Vial IV.PUSH SCH ×2 (01:55→01:59)
[2018-08-12] MEDS: Sodium Chloride 0.9% 2 ML Flush BID IV.FLUSH SCH ×2 (08:05→20:21)
--- NOTE | 2018-08-12 08:58 | P.PN ---
Subjective Interval history: The patient is status post laparoscopic exploratory laparotomy with small bowel resection. Patient denies any significant pain. NG tube remains connected to low intermittent suction. No nausea or vomiting. No flatus or bowel movement. Patient had some confusion overnight and remains mildly confused this morning. Respiratory status is stable status post surgery. Continues to receive nebulizer treatments and remains on oxygen at 3 L/min per nasal cannula. She has some cough with sputum production. Active Medications Generic Name Dose Route Start Last Admin Trade Name Freq PRN Reason Stop Dose Admin Hydrocodone Bitart/Acetaminophen 1 tab 08/11/18 19:00 Ponce 5/325 PO Q4H PRN PAIN SCALE 1 TO 5 Albuterol 1 ampul 08/10/18 20:00 08/12/18 08:24 Duoneb Neb (Ciaran) NEB 1 ampul TID NEB CIARAN Administration Albuterol 1 ampul 08/10/18 17:13 08/10/18 17:52 Duoneb Neb (Prn) NEB 1 ampul Q2HR NEB PRN Administration SHORTNESS OF BREATH Dextrose/Sodium Chloride 1,000 mls @ 75 mls/hr 08/06/18 14:15 08/11/18 23:38 D5w/1/2 Ns Inj IV.CONT Not Given .[id number] CIARNA Lactated Ringer's 1,000 mls @ 30 mls/hr 08/11/18 16:30 Lr 1000 Ml Inj IV.SIG 08/12/18 16:29 .Q24H CIARAN Sodium Chloride 500 mls @ 30 mls/hr 08/11/18 17:00 Ns Inj IV.SIG 08/12/18 09:39 .Q10H ONE Labetalol HCl 10 mg 08/05/18 09:17 08/05/18 09:35 Trandate Inj IV.PUSH 10 mg Q4H PRN Administration SBP>180, DBP>100, HR>65 Miscellaneous Information 1 each 08/11/18 20:40 Misc Nursing Information OTHER 08/12/18 20:40 UNSCH PRN SEE LABEL COMMENTS Morphine Sulfate 1 mg 08/05/18 02:03 08/09/18 21:24 Morphine Inj IV.PUSH 1 mg Q3H PRN Administration PAIN 3-5; IF UABLE TO TAKE PO Morphine Sulfate 3 mg 08/05/18 02:03 08/08/18 17:36 Morphine Inj IV.PUSH 3 mg Q3H PRN Administration PAIN 6-10;IF UNABLE TO TAKE PO Naloxone HCl 0.4 mg 08/05/18 02:03 Narcan Inj IV.PUSH UNSCH PRN SEE LABEL COMMENTS Ondansetron HCl 4 mg 08/05/18 02:03 08/11/18 03:12 Zofran Inj IV.PUSH 4 mg Q6H PRN Administration NAUSEA OR VOMITING Pantoprazole Sodium 40 mg 08/05/18 03:00 08/12/18 01:59 Protonix Inj IV.PUSH Not Given Q24H CIARAN Sodium Chloride 2 ml 08/05/18 21:00 08/12/18 08:05 Ns Flush IV.FLUSH Not Given BID CIARAN Sodium Chloride 2 ml 08/05/18 09:25 08/06/18 13:32 Ns Flush IV.FLUSH 2 ml PRN PRN Administration FLUSH AFTER USING IV ACCESS Physical Exam Vital signs: Vital Signs 08/11/18 12:00 08/11/18 12:39 08/11/18 16:00 Temperature 97.7 F 98.4 F Pulse Rate 78 84 91 H Respiratory Rate 17 18 17 Blood Pressure 158/86 H 173/83 H Pulse Oximetry 93 L 95 08/11/18 19:20 08/11/18 19:30 08/11/18 19:35 Temperature 98.2 F Pulse Rate 86 89 Respiratory Rate 24 23 Blood Pressure 125/58 L 118/68 Pulse Oximetry 92 L 96 93 L 08/11/18 19:45 08/11/18 20:00 08/11/18 20:15 Temperature Pulse Rate 86 85 84 Respiratory Rate 24 22 25 H Blood Pressure 101/60 137/63 109/53 L Pulse Oximetry 92 L 92 L 97 08/11/18 20:30 08/11/18 20:45 08/11/18 21:40 Temperature 97.8 F 98.0 F Pulse Rate 80 81 97 H Respiratory Rate 24 25 H 18 Blood Pressure 123/69 123/65 110/53 L Pulse Oximetry 96 94 L 93 L 08/11/18 21:50 08/12/18 00:00 08/12/18 04:00 Temperature 98.1 F 98.0 F Pulse Rate 88 88 Respiratory Rate 20 18 Blood Pressure 140/65 141/78 H Pulse Oximetry 97 92 L 94 L 08/12/18 08:26 Temperature Pulse Rate 112 H Respiratory Rate 21 Blood Pressure Pulse Oximetry 94 L Intake & Output 08/11/18 08/12/18 08/12/18 18:59 06:59 18:59 Intake Total 2200 / 2200 2340 / 2340 Output Total 220 / 220 145 / 145 Balance 1979 2195 / 2195 Weight 168 lb 3.403 oz Intake: IV 1000 / 1000 2200 / 2200 D5W/1/2 NS Inj 1,000 ML @ 75 1000 / 1000 2000 / 2000 mls/hr IV.CONT .[id number] [facility] Rx# :[id number] Cipro 400 MG/200 ML Inj 400 mg 200 / 200 In 200 ml @ 0 mls/hr IV.SIG . [facility] Rx#:[id number] Oral 140 / 140 Anesthesia Amount 1200 / 1200 Output: Urine 50 / 50 0 / 0 Estimated Blood Loss 20 / 20 Gastric Drainage 150 / 150 145 / 145 Right Nare Nasogastric Tube 150 / 150 145 / 145 Other: # Voids 1 1 - Constitutional Comments: Awake and alert. Mildly confused but in no acute distress. - Routine Respiratory Exam Comments: Clear to auscultation with moderately severe reduced air exchange bilaterally - Routine Cardiovascular Exam Comments: IRRR - Routine Abdominal Exam Comments: Soft, moderate distention, no bowel sounds, nontender, surgical incisions are clean and dry Results - Labs CBC & Chem 7: 08/08/18 08:03 08/07/18 05:50 - Imaging Impressions Abdomen X-Ray 08/11/18 00:00 CONCLUSION: There are multiple dilated loops of air-filled small bowel suggest ileus. This exam is similar to a prior dated 08/10/2018. Assessment and Plan - Assessment (1) Small bowel obstruction Code(s): K56.609 - Unspecified intestinal obstruction, unspecified as to partial versus complete obstruction Status: Acute Plan: Patient is status post small bowel resection. Continue with NG tube to low intermittent suction until return of bowel function. (2) Ileitis Code(s): K52.9 - Noninfective gastroenteritis and colitis, unspecified Status : Acute Plan: Status post resection of involved portion of ileum (3) Chronic atrial fibrillation Code(s): I48.2 - Chronic atrial fibrillation Status: Chronic Plan: Ventricular rate is well controlled. We will continue with Lovenox for now. Once patient able to take p.o. will transition back to Eliquis (4) Chronic obstructive pulmonary disease Code(s): J44.9 - Chronic obstructive pulmonary disease, unspecified Status: Chronic Plan: The patient has moderately severe COPD. She did well tolerating surgery from a respiratory standpoint. Continue with nebulizer treatments and supplemental oxygen. Out of bed today. Incentive spirometry. (5) Hypertension Code(s): I10 - Essential (primary) hypertension Status: Chronic Plan: Blood pressure under adequate control at this time. Labetalol IV available as needed. (6) GERD (gastroesophageal reflux disease) Code(s): K21.9 - Gastro-esophageal reflux disease without esophagitis Status: Chronic Plan: Continue with PPI (7) Hypothyroidism Code(s): E03.9 - Hypothyroidism, unspecified Status: Chronic Plan: Levothyroxine on hold until patient can take p.o. (4) Chronic obstructive pulmonary disease Qualifiers: COPD type: emphysema Emphysema type: panlobular Qualified Code(s): J43.1 - Panlobular emphysema (5) Hypertension Qualifiers: Hypertension type: essential hypertension Qualified Code(s): I10 - Essential (primary) hypertension (6) GERD (gastroesophageal reflux disease) Qualifiers: Esophagitis presence: without esophagitis Qualified Code(s): K21.9 - Gastro- esophageal reflux disease without esophagitis (7) Hypothyroidism Qualifiers: Hypothyroidism type: unspecified Qualified Code(s): E03.9 - Hypothyroidism, unspecified
[2018-08-12] MEDS: Dextrose 5%/NaCl 0.45% Inj 1,000 ML IV.CONT SCH (11:38)
--- NOTE | 2018-08-12 15:48 | P.PNGS ---
Subjective Interval history: Doing well post op No pain Physical Exam Vital signs: Vital Signs 08/11/18 16:00 08/11/18 19:20 08/11/18 19:30 Temperature 98.4 F 98.2 F Pulse Rate 91 H 86 89 Respiratory Rate 17 24 23 Blood Pressure 173/83 H 125/58 L 118/68 Pulse Oximetry 95 92 L 96 08/11/18 19:35 08/11/18 19:45 08/11/18 20:00 Temperature Pulse Rate 86 85 Respiratory Rate 24 22 Blood Pressure 101/60 137/63 Pulse Oximetry 93 L 92 L 92 L 08/11/18 20:15 08/11/18 20:30 08/11/18 20:45 Temperature 97.8 F Pulse Rate 84 80 81 Respiratory Rate 25 H 24 25 H Blood Pressure 109/53 L 123/69 123/65 Pulse Oximetry 97 96 94 L 08/11/18 21:40 08/11/18 21:50 08/12/18 00:00 Temperature 98.0 F 98.1 F Pulse Rate 97 H 88 Respiratory Rate 18 20 Blood Pressure 110/53 L 140/65 Pulse Oximetry 93 L 97 92 L 08/12/18 04:00 08/12/18 06:00 08/12/18 08:00 Temperature 98.0 F 97.9 F 97.9 F Pulse Rate 88 107 H 107 H Respiratory Rate 18 20 20 Blood Pressure 141/78 H 195/87 H 195/87 H Pulse Oximetry 94 L 95 95 08/12/18 08:26 08/12/18 12:00 08/12/18 12:37 Temperature 97.8 F Pulse Rate 112 H 93 H 114 H Respiratory Rate 21 20 20 Blood Pressure 141/93 H Pulse Oximetry 94 L 100 Intake & Output 08/11/18 08/12/18 08/12/18 18:59 06:59 18:59 Intake Total 2200 / 2200 2340 / 2340 1000 / 1000 Output Total 220 / 220 145 / 145 150 / 150 Balance 1979 / 1979 2195 / 2195 850 / 850 Weight 76.3 kg Intake: IV 1000 / 1000 2200 / 2200 1000 / 1000 D5W/1/2 NS Inj 1,000 ML @ 75 1000 / 1000 2000 / 2000 1000 / 1000 mls/hr IV.CONT .[id number] [facility] Rx# :[id number] Cipro 400 MG/200 ML Inj 400 mg 200 / 200 In 200 ml @ 0 mls/hr IV.SIG . [facility] Rx#:[id number] Oral 140 / 140 Anesthesia Amount 1200 / 1200 Output: Urine 50 / 50 0 / 0 Estimated Blood Loss 20 / 20 Gastric Drainage 150 / 150 145 / 145 150 / 150 Right Nare Nasogastric Tube 150 / 150 145 / 145 150 / 150 Other: # Voids 1 1 1 Narrative: Alert and awake Abd: soft; minimally tender; incisions c/d/i Results - Labs 08/15/18 06:35 08/17/18 04:41 - Imaging Imaging: ITS Impressions Abdomen/Pelvis CTA 08/05/18 00:00 CONCLUSION: 1. 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 Celiac and FLETCHER are patent. Central SMV and portal vein are patent. Therefore, mesenteric ischemia as an etiology for patient's small bowel obstruction and proximal ileitis is unlikely. 2. 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 3. Remainder of the exam is unchanged from earlier abdominal CT exam with redemonstration of acute small bowel obstruction secondary to severe wall thickening involving the proximal ileum in the central pelvis. No evidence for perforation, bowel infarction or abscess at this time. Chest X-Ray 08/05/18 00:00 CONCLUSION: No acute cardiopulmonary disease demonstrated. Mild chronic interstitial opacities are stable. Abdomen/Pelvis CT 08/05/18 23:49 CONCLUSION: 1. Approximately 10 cm long segment of severe wall thickening involving the proximal ileum within the pelvic cavity and with associated acute small bowel obstruction. The etiology of wall thickening is uncertain. Infectious, inflammatory and neoplastic etiologies are all in the differential. 2. Associated trace ascites. Nothing organized or drainable. No free air. 3. Diverticulosis of the colon without diverticulitis. 4. Patchy cortical thinning/scarring and cysts of both kidneys. There are also nonobstructing stones of the right kidney. 5. Bilateral adrenal nodularity, indeterminate but statistically most likely benign adenomatous change. 6. Aortoiliac atherosclerosis. No aneurysm seen. 7. Trace lung base atelectasis. 8. Coronary artery calcification. Visualized heart appears enlarged, mostly the left atrium. 9. Small hiatal hernia. Small Bowel X-Ray 08/07/18 00:00 CONCLUSION: Multiple dilated loops of small bowel. Markedly delayed transit of contrast in the small bowel. Contrast only progresses to the mid small bowel at 5 hours. Findings are suspicious for possible small bowel obstruction. Delayed films could be obtained to evaluate progress of contrast. Abdomen X-Ray 08/11/18 00:00 CONCLUSION: There are multiple dilated loops of air-filled small bowel suggest ileus. This exam is similar to a prior dated 08/10/2018. Assessment and Plan - Assessment (1) Small bowel obstruction Code(s): K56.609 - Unspecified intestinal obstruction, unspecified as to partial versus complete obstruction Status: Resolved Plan: 87 year old female with abdominal pain; SBO vs gastroenteritis vs adhesions -POD1 dx lap; ANTELMO -IVF -Will try clamping NGT this afternoon with sips of clear liquids -OOB as tolerated; PT -Will advance diet as bowel function returns (2) Small bowel obstruction due to adhesions Code(s): K56.50 - Intestinal adhesions [bands], unspecified as to partial versus complete obstruction Status: Acute - Attending Attestation The exam, history, and the medical decision-making described in the above note were completed with the assistance of the mid-level provider. I reviewed and agree with the findings presented. I attest that I had a [id number] encounter with the patient on the same day, and personally performed and documented my assessment and findings in the medical record. Patient s/p lap ANTELMO, doing well Abdominal exam soft, minimally tender, inc c/d/i await return of bowel fxn
--- NOTE | 2018-08-12 23:37 | MP ---
cc: Franco Scott MD DATE OF OPERATION: 08/11/2018 PREOPERATIVE DIAGNOSIS: Ileus versus small-bowel obstruction. POSTOPERATIVE DIAGNOSIS: Small-bowel obstruction secondary to single adhesive band. PROCEDURE PERFORMED: 1. Diagnostic laparoscopy. 2. Lysis of adhesive band and repair of serosal tear. ATTENDING SURGEON: Franco Scott MD SHELTER DIRECTOR: Staff. ANESTHESIA: General and local anesthetic. ESTIMATED BLOOD LOSS: Less than 10 mL. SPECIMENS: None. FINDINGS: 1. A small-bowel obstruction caused by a single, appearing to be a congenital, tight band from the mesentery across the distal loop of ileum causing small-bowel obstruction. 2. A deep serosal tear involving 25% of the bowel at the site of the obstruction due to injury from the band compressing the bowel at this point. No evidence of any perforation. No evidence of any bowel ischemia. No evidence of any other intra-abdominal pathology. INDICATIONS FOR PROCEDURE: The patient is an 87-year-old female with no past surgical history, who presented to [facility] with nausea, vomiting, abdominal distention. The patient did have some passage of flatus but had some decreased passage of stool. She underwent evaluation including a CT scan, which did show some dilated loops of small bowel, concerning for possible small-bowel obstruction versus ileus or possible gastroenteritis. The patient was managed nonoperatively. However, she failed to resolve and continued with some discomfort, some pain, some bloating, and was unable to tolerate clear liquids after 2 attempts. Small-bowel followthrough also showed possible dilated bowel, concerning for obstruction versus ileus. After several days, the patient failed to progress, and discussion was had with the patient and the family about exploratory surgery. Risks, benefits, and alternatives were discussed, and the patient agreed to undergo the procedure. DESCRIPTION OF PROCEDURE: The patient was taken to the operating room and placed in a supine position and placed under general endotracheal anesthesia. The patient's abdomen was prepped and draped in a sterile fashion. Timeout was performed. The abdomen was entered through a Pito type technique above the umbilicus. A curved blade scalpel was used to incise the skin. The subcutaneous tissue was spread with a hemostat, and the midline fascia was opened with a scalpel under direct visualization. We bluntly entered the abdominal cavity with retractors and placed a 10 mm trocar into this Pito site. We insufflated the abdomen, surveyed the abdomen with a 5 mm camera. There was no evidence of any complication from our entry. There were multiple loops of small bowel, dilated, and some inflammatory fluid. There was no evidence of perforation or ischemia or any other process. There were some few amount of adhesions over the liver to the abdominal wall such as Jjqo-Nesj-Oljyuj type of adhesions. It did not appear to be causing any kind of problem. We then placed 2 additional ports, which were 5 mm ports, one in the right upper quadrant and one in the left upper quadrant under direct visualization of the laparoscope. I was able to at this point manipulate the small bowel. We did run the small bowel from as close to the ligament of Treitz as possible. We could find distally using regular atraumatic graspers. Near the distal ileum, there was a very abrupt transition from dilated small bowel to over 3 cm to completely decompressed small bowel. With some suctioning of inflammatory fluid and some gentle retraction, we noted a very dense, white, approximately 1-2 cm band coming from the root of the mesentery, coming across the distal loop of small bowel. There was clearly a transition point, and it appeared to be this band was causing the obstruction or partial obstruction. I was able to use laparoscopic EndoShears to clip this band, and this fully released the bowel. The bowel was able to expand up into our field, and the transition stricture immediately disappeared, and content started flowing distally into the formerly decompressed bowel. At this point in time, again, the bowel was 100% viable, but we noted an area on the antimesenteric border of the small bowel that appeared to have a pretty deep serosal tear due to compression from this band. There was no evidence of any full-thickness ischemia or a leak. I felt that oversewing this deep serosal tear would be in order and appropriate. We did use a laparoscopic needle screw driver operator to perform a running 3-0 Vicryl suture repair with an SH needle at this site. This did not narrow the bowel and basically was like a Lembert-type suture repair. This was technically sound and felt this was clearly adequate to reinforce this injury. I did not feel the small bowel would need resection or any further intervention at this time. We did actually run the formerly decompress bowel that was now full of enteric contents down to the colon and terminal ileum. Again at this point in time, we did irrigate out the cavity with sterile saline until suctioning was clear. We reinspected the cavity. Again, there was no evidence of any other need for any intervention. We returned towards completion and removed all ports under visualization of the laparoscope. We expressed pneumoperitoneum. We closed the 10 mm Pito entry with a 0 Vicryl suture. We closed the skin with 4-0 Vicryl, and Dermabond was applied. The patient was discontinued from anesthesia and taken to the PACU in stable condition. The patient tolerated the procedure well. There were no apparent complications, and all counts were correct. I was present and scrubbed for the entire procedure. MD JULIO Cox/coy , 10:10 PM , 10:24 PM
[2018-08-13] MEDS: Morphine Inj 4 MG/ML Vial IV.PUSH PRN (00:38)
[2018-08-13] MEDS: Dextrose 5%/NaCl 0.45% Inj 1,000 ML IV.CONT SCH (03:24)
[2018-08-13] MEDS: Pantoprazole Inj 40 MG Vial IV.PUSH SCH (03:25)
[2018-08-13 06:19] LABS: Calcium 7.9 mg/dL (8.5-10.1); Carbon Dioxide 36.1 meq/L (21.0-32.0)
[2018-08-13 06:26] LABS: Potassium 2.7 meq/L (3.5-5.1)
--- NOTE | 2018-08-13 08:39 | P.PN ---
Subjective Interval history: Patient denies pain or nausea. She had some cramping abdominal pain overnight but it has resolved. NG residuals were high yesterday so patient placed back on low intermittent suction. Still no flatus or bowel movement. Respiratory status is stable. Potassium level low at 2.7 this morning. Confusion has improved. Active Medications Generic Name Dose Route Start Last Admin Trade Name Freq PRN Reason Stop Dose Admin Hydrocodone Bitart/Acetaminophen 1 tab 08/11/18 19:00 [place] 5/325 PO Q4H PRN PAIN SCALE 1 TO 5 Albuterol 1 ampul 08/10/18 20:00 08/12/18 21:06 Duoneb Neb (Ciaran) NEB 1 ampul TID NEB CIARAN Administration Albuterol 1 ampul 08/10/18 17:13 08/10/18 17:52 Duoneb Neb (Prn) NEB 1 ampul Q2HR NEB PRN Administration SHORTNESS OF BREATH Dextrose/Sodium Chloride 1,000 mls @ 75 mls/hr 08/06/18 14:15 08/13/18 03:24 D5w/1/2 Ns Inj IV.CONT 75 mls/hr .[id number] [facility]AN Administration Labetalol HCl 10 mg 08/05/18 09:17 08/05/18 09:35 Trandate Inj IV.PUSH 10 mg Q4H PRN Administration SBP>180, DBP>100, HR>65 Morphine Sulfate 1 mg 08/05/18 02:03 08/13/18 00:38 Morphine Inj IV.PUSH 1 mg Q3H PRN Administration PAIN 3-5; IF UABLE TO TAKE PO Morphine Sulfate 3 mg 08/05/18 02:03 08/08/18 17:36 Morphine Inj IV.PUSH 3 mg Q3H PRN Administration PAIN 6-10;IF UNABLE TO TAKE PO Naloxone HCl 0.4 mg 08/05/18 02:03 Narcan Inj IV.PUSH UNSCH PRN SEE LABEL COMMENTS Ondansetron HCl 4 mg 08/05/18 02:03 08/11/18 03:12 Zofran Inj IV.PUSH 4 mg Q6H PRN Administration NAUSEA OR VOMITING Pantoprazole Sodium 40 mg 08/05/18 03:00 08/13/18 03:25 Protonix Inj IV.PUSH 40 mg Q24H CIARAN Administration Sodium Chloride 2 ml 08/05/18 21:00 08/12/18 20:21 Ns Flush IV.FLUSH Not Given BID [facility] Sodium Chloride 2 ml 08/05/18 09:25 08/06/18 13:32 Ns Flush IV.FLUSH 2 ml PRN PRN Administration FLUSH AFTER USING IV ACCESS Physical Exam Vital signs: Vital Signs 08/12/18 12:00 08/12/18 12:37 08/12/18 16:00 Temperature 97.8 F 97.7 F Pulse Rate 93 H 114 H 90 Respiratory Rate 20 20 20 Blood Pressure 141/93 H 132/65 Pulse Oximetry 100 91 L 08/12/18 20:00 08/12/18 21:06 08/13/18 00:00 Temperature 98.4 F 98.4 F Pulse Rate 78 86 95 H Respiratory Rate 18 16 18 Blood Pressure 167/76 H 126/77 Pulse Oximetry 92 L 92 L 94 L 08/13/18 07:53 Temperature 98 F Pulse Rate 86 Respiratory Rate 24 Blood Pressure 171/69 H Pulse Oximetry 97 Intake & Output 08/12/18 08/13/18 08/13/18 18:59 06:59 18:59 Intake Total 1000 / 1000 1000 / 1000 Output Total 150 / 150 0 / 0 Balance 850 / 850 1000 / 1000 Weight 176 lb 5.917 oz Intake: IV 1000 / 1000 1000 / 1000 D5W/1/2 NS Inj 1,000 ML @ 75 1000 / 1000 1000 / 1000 mls/hr IV.CONT .[id number] [facility] Rx# :[id number] Output: Urine 0 / 0 Gastric Drainage 150 / 150 Right Nare Nasogastric Tube 150 / 150 Other: # Voids 6 - Routine Respiratory Exam Comments: Clear to auscultation but moderately severe reduced air exchange bilaterally. - Routine Cardiovascular Exam Comments: IRRR - Routine Abdominal Exam Comments: Soft, mildly distended, hypoactive bowel sounds, nontender - Routine Extremities Exam Comments: No edema. No calf tenderness or Homans sign Results - Labs CBC & Chem 7: 08/08/18 08:03 08/13/18 05:22 Laboratory Results - last 24 hr 08/13/18 05:22 Sodium 142 Potassium 2.7 L* Chloride 100 Carbon Dioxide 36.1 H Anion Gap 6 BUN 12 Creatinine 0.75 Estimated GFR 73 L Random Glucose 117 H Calcium 7.9 L Assessment and Plan - Assessment (1) Small bowel obstruction Code(s): K56.609 - Unspecified intestinal obstruction, unspecified as to partial versus complete obstruction Status: Acute Plan: Patient is status post lysis of adhesions. Continue NG to low intermittent suction until return of bowel function. Increase activity. (2) Hypokalemia Code(s): E87.6 - Hypokalemia Status: Acute Plan: Have ordered potassium supplement IV. Will follow potassium level closely and provide additional supplement if needed. (3) Chronic atrial fibrillation Code(s): I48.2 - Chronic atrial fibrillation Status: Chronic Plan: Ventricular rate is well controlled. We will continue with Lovenox for now. Once patient able to take p.o. will transition back to Eliquis (4) Chronic obstructive pulmonary disease Code(s): J44.9 - Chronic obstructive pulmonary disease, unspecified Status: Chronic Plan: The patient has moderately severe COPD. She did well tolerating surgery from a respiratory standpoint. Continue with nebulizer treatments and supplemental oxygen. Out of bed today. Incentive spirometry. (5) Hypertension Code(s): I10 - Essential (primary) hypertension Status: Chronic Plan: Blood pressure under adequate control at this time. Labetalol IV available as needed. (6) GERD (gastroesophageal reflux disease) Code(s): K21.9 - Gastro-esophageal reflux disease without esophagitis Status: Chronic Plan: Continue with PPI (7) Hypothyroidism Code(s): E03.9 - Hypothyroidism, unspecified Status: Chronic Plan: Levothyroxine on hold until patient can take p.o. (8) Ileitis Code(s): K52.9 - Noninfective gastroenteritis and colitis, unspecified Status : Resolved Plan: Resolved. Status post lysis of adhesions. (4) Chronic obstructive pulmonary disease Qualifiers: COPD type: emphysema Emphysema type: panlobular Qualified Code(s): J43.1 - Panlobular emphysema (5) Hypertension Qualifiers: Hypertension type: essential hypertension Qualified Code(s): I10 - Essential (primary) hypertension (6) GERD (gastroesophageal reflux disease) Qualifiers: Esophagitis presence: without esophagitis Qualified Code(s): K21.9 - Gastro- esophageal reflux disease without esophagitis (7) Hypothyroidism Qualifiers: Hypothyroidism type: unspecified Qualified Code(s): E03.9 - Hypothyroidism, unspecified
[2018-08-13] MEDS: KCL 10 mEq/D5W/NaCl 0.45% Inj 1,000 ML IV.CONT SCH (09:20)
[2018-08-13] MEDS: Sodium Chloride 0.9% 2 ML Flush BID IV.FLUSH SCH ×2 (09:20→21:13)
--- NOTE | 2018-08-13 12:53 | P.PNGS ---
Subjective Interval history: Up to the chair Student RN at bedside Physical Exam Vital signs: Vital Signs 08/12/18 16:00 08/12/18 20:00 08/12/18 21:06 Temperature 97.7 F 98.4 F Pulse Rate 90 78 86 Respiratory Rate 20 18 16 Blood Pressure 132/65 167/76 H Pulse Oximetry 91 L 92 L 92 L 08/13/18 00:00 08/13/18 07:53 08/13/18 08:00 Temperature 98.4 F 98 F 98 F Pulse Rate 95 H 86 86 Respiratory Rate 18 24 24 Blood Pressure 126/77 171/69 H 171/69 H Pulse Oximetry 94 L 97 97 08/13/18 08:45 08/13/18 11:48 08/13/18 12:18 Temperature 97.4 F L Pulse Rate 95 H 88 94 H Respiratory Rate 16 22 16 Blood Pressure 175/79 H Pulse Oximetry 96 Intake & Output 08/12/18 08/13/18 08/13/18 18:59 06:59 18:59 Intake Total 1000 / 1000 1000 / 1000 Output Total 150 / 150 0 / 0 Balance 850 / 850 1000 / 1000 Weight 80 kg Intake: IV 1000 / 1000 1000 / 1000 D5W/1/2 NS Inj 1,000 ML @ 75 1000 / 1000 1000 / 1000 mls/hr IV.CONT .[id number] [facility] Rx# :[id number] Output: Urine 0 / 0 Gastric Drainage 150 / 150 Right Nare Nasogastric Tube 150 / 150 Other: # Voids 6 Narrative: Alert and awake Abd: moderately distended; non tender; incisions sites c/d/i with skin glue Results - Labs 08/15/18 06:35 08/17/18 04:41 Laboratory Results - last 24 hr 08/13/18 05:22 Sodium 142 Potassium 2.7 L* Chloride 100 Carbon Dioxide 36.1 H Anion Gap 6 BUN 12 Creatinine 0.75 Estimated GFR 73 L Random Glucose 117 H Calcium 7.9 L - Imaging Imaging: ITS Impressions Abdomen/Pelvis CTA 08/05/18 00:00 CONCLUSION: 1. 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 Celiac and FLETCHER are patent. Central SMV and portal vein are patent. Therefore, mesenteric ischemia as an etiology for patient's small bowel obstruction and proximal ileitis is unlikely. 2. 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 3. Remainder of the exam is unchanged from earlier abdominal CT exam with redemonstration of acute small bowel obstruction secondary to severe wall thickening involving the proximal ileum in the central pelvis. No evidence for perforation, bowel infarction or abscess at this time. Chest X-Ray 08/05/18 00:00 CONCLUSION: No acute cardiopulmonary disease demonstrated. Mild chronic interstitial opacities are stable. Abdomen/Pelvis CT 08/05/18 23:49 CONCLUSION: 1. Approximately 10 cm long segment of severe wall thickening involving the proximal ileum within the pelvic cavity and with associated acute small bowel obstruction. The etiology of wall thickening is uncertain. Infectious, inflammatory and neoplastic etiologies are all in the differential. 2. Associated trace ascites. Nothing organized or drainable. No free air. 3. Diverticulosis of the colon without diverticulitis. 4. Patchy cortical thinning/scarring and cysts of both kidneys. There are also nonobstructing stones of the right kidney. 5. Bilateral adrenal nodularity, indeterminate but statistically most likely benign adenomatous change. 6. Aortoiliac atherosclerosis. No aneurysm seen. 7. Trace lung base atelectasis. 8. Coronary artery calcification. Visualized heart appears enlarged, mostly the left atrium. 9. Small hiatal hernia. Small Bowel X-Ray 08/07/18 00:00 CONCLUSION: Multiple dilated loops of small bowel. Markedly delayed transit of contrast in the small bowel. Contrast only progresses to the mid small bowel at 5 hours. Findings are suspicious for possible small bowel obstruction. Delayed films could be obtained to evaluate progress of contrast. Abdomen X-Ray 08/11/18 00:00 CONCLUSION: There are multiple dilated loops of air-filled small bowel suggest ileus. This exam is similar to a prior dated 08/10/2018. Assessment and Plan - Assessment (1) Small bowel obstruction Code(s): K56.609 - Unspecified intestinal obstruction, unspecified as to partial versus complete obstruction Status: Resolved Plan: 87 year old female with abdominal pain; SBO vs gastroenteritis vs adhesions -POD2 dx lap; ANTELMO -IVF -Continue NGT to LIWS until bowel function returns -Okay for ice chips and sips of water -OOB as tolerated; PT -Replace electrolytes - Attending Attestation The exam, history, and the medical decision-making described in the above note were completed with the assistance of the mid-level provider. I reviewed and agree with the findings presented. I attest that I had a [id number] encounter with the patient on the same day, and personally performed and documented my assessment and findings in the medical record. Patient s/p lap ANTELMO for single band adhesion SBO Abdominal exam soft, nontender, inc c/d/i bowel fxn returning, NG out d/w pt, d/w family
[2018-08-13] MEDS ORDERED: Potassium Chlor 20 mEq Premix 20 MEQ/100 ML PIGGYBACK IV.SIG ONE (21:00)
[2018-08-14] MEDS: Pantoprazole Inj 40 MG Vial IV.PUSH SCH (04:33)
[2018-08-14 07:58] LABS: Calcium 7.8 mg/dL (8.5-10.1); Carbon Dioxide 36.5 meq/L (21.0-32.0)
[2018-08-14 08:02] LABS: Potassium 2.6 meq/L (3.5-5.1)
[2018-08-14] MEDS ORDERED: POTASSIUM CHLORIDE IV.SIG ONE (09:00)
[2018-08-14] MEDS ORDERED: SODIUM CHLOR 0.9% IV.SIG ONE (09:00)
[2018-08-14] MEDS ORDERED: Potassium Chlor 20 mEq Premix 20 MEQ/100 ML PIGGYBACK IV.SIG ONE (09:30)
[2018-08-14] MEDS: KCL 10 mEq/D5W/NaCl 0.45% Inj 1,000 ML IV.CONT SCH (10:19)
[2018-08-14] MEDS: Sodium Chloride 0.9% 2 ML Flush BID IV.FLUSH SCH ×2 (10:20→20:13)
--- NOTE | 2018-08-14 13:22 | P.PNGS ---
Subjective Patient reports: no new complaints, feels better Physical Exam Vital signs: Vital Signs 08/13/18 16:00 08/13/18 20:00 08/13/18 21:00 Temperature 98 F 97.8 F Pulse Rate 90 100 H 81 Respiratory Rate 20 20 Blood Pressure 143/84 H 165/73 H 157/82 H Pulse Oximetry 100 92 L 08/14/18 00:00 08/14/18 00:30 08/14/18 08:00 Temperature 97.9 F 97.4 F L Pulse Rate 86 79 Respiratory Rate 18 17 Blood Pressure 160/71 H 160/73 H Pulse Oximetry 96 92 L 08/14/18 08:31 08/14/18 12:50 Temperature Pulse Rate 82 77 Respiratory Rate 16 16 Blood Pressure Pulse Oximetry 95 Intake & Output 08/13/18 08/14/18 08/14/18 18:59 06:59 18:59 Intake Total 1100 / 1100 Output Total 300 / 300 200 / 200 200 / 200 Balance -300 / -300 -200 / -200 900 / 900 Weight 75.8 kg Intake: IV 1100 / 1100 D5W/1/2NS + KCL 10 mEq Inj 1, 1000 / 1000 000 ML @ 42 mls/hr IV.CONT . [id number] [facility] Rx#:[id number] KCl 20 mEq Premix Inj 20 meq In 100 / 100 100 ml @ 10 mls/hr IV.SIG ONCE ONE Rx#:[id number] Output: Urine 200 / 200 Gastric Drainage 300 / 300 200 / 200 Right Nare Nasogastric Tube 300 / 300 200 / 200 Other: # Voids 5 3 1 - Constitutional no acute distress - Routine Abdominal Exam Present: soft, normoactive bowel sounds, distended. Absent: tenderness, rebound , guarding Comments: surgical incisions and dressing clean, dry and intact without complications Results - Labs 08/08/18 08:03 08/14/18 06:37 Laboratory Results - last 24 hr 08/13/18 08/14/18 16:36 06:37 Sodium 142 Potassium 2.6 L* 2.6 L* Chloride 99 Carbon Dioxide 36.5 H Anion Gap 7 BUN 10 Creatinine 0.63 Estimated GFR 89 Random Glucose 82 Calcium 7.8 L - Imaging Imaging: ITS Impressions Abdomen/Pelvis CTA 08/05/18 00:00 CONCLUSION: 1. 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 Celiac and FLETCHER are patent. Central SMV and portal vein are patent. Therefore, mesenteric ischemia as an etiology for patient's small bowel obstruction and proximal ileitis is unlikely. 2. 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 3. Remainder of the exam is unchanged from earlier abdominal CT exam with redemonstration of acute small bowel obstruction secondary to severe wall thickening involving the proximal ileum in the central pelvis. No evidence for perforation, bowel infarction or abscess at this time. Chest X-Ray 08/05/18 00:00 CONCLUSION: No acute cardiopulmonary disease demonstrated. Mild chronic interstitial opacities are stable. Abdomen/Pelvis CT 08/05/18 23:49 CONCLUSION: 1. Approximately 10 cm long segment of severe wall thickening involving the proximal ileum within the pelvic cavity and with associated acute small bowel obstruction. The etiology of wall thickening is uncertain. Infectious, inflammatory and neoplastic etiologies are all in the differential. 2. Associated trace ascites. Nothing organized or drainable. No free air. 3. Diverticulosis of the colon without diverticulitis. 4. Patchy cortical thinning/scarring and cysts of both kidneys. There are also nonobstructing stones of the right kidney. 5. Bilateral adrenal nodularity, indeterminate but statistically most likely benign adenomatous change. 6. Aortoiliac atherosclerosis. No aneurysm seen. 7. Trace lung base atelectasis. 8. Coronary artery calcification. Visualized heart appears enlarged, mostly the left atrium. 9. Small hiatal hernia. Small Bowel X-Ray 08/07/18 00:00 CONCLUSION: Multiple dilated loops of small bowel. Markedly delayed transit of contrast in the small bowel. Contrast only progresses to the mid small bowel at 5 hours. Findings are suspicious for possible small bowel obstruction. Delayed films could be obtained to evaluate progress of contrast. Abdomen X-Ray 08/11/18 00:00 CONCLUSION: There are multiple dilated loops of air-filled small bowel suggest ileus. This exam is similar to a prior dated 08/10/2018. Assessment and Plan - Assessment (1) Small bowel obstruction Code(s): K56.609 - Unspecified intestinal obstruction, unspecified as to partial versus complete obstruction Status: Acute Plan: 87 year old female with SBO s/p dx lap and ANTELMO -DC NG, advance to fulls - passing flatus - abd pain gone, abd soft
[2018-08-14] MEDS ORDERED: LORazepam 0.5 MG Tablet PO PRN (18:20)
--- NOTE | 2018-08-14 18:29 | P.PN ---
Subjective Interval history: The patient had a large bowel movement today. NG tube was discontinued. Tolerating full liquid diet. Denies any abdominal pain, nausea or vomiting. No shortness of breath with oxygen at 3 L/min per nasal cannula. Patient still having some confusion at times but improving. Blood pressure has been higher but denies any chest pain or palpitations. Active Medications Generic Name Dose Route Start Last Admin Trade Name Freq PRN Reason Stop Dose Admin Hydrocodone Bitart/Acetaminophen 1 tab 08/11/18 19:00 [place] 5/325 PO Q4H PRN PAIN SCALE 1 TO 5 Albuterol 1 ampul 08/10/18 20:00 08/14/18 12:49 Duoneb Neb (Ciaran) NEB 1 ampul TID NEB CIARAN Administration Albuterol 1 ampul 08/10/18 17:13 08/10/18 17:52 Duoneb Neb (Prn) NEB 1 ampul Q2HR NEB PRN Administration SHORTNESS OF BREATH Potassium Chloride/Dextrose/Sod Cl 1,000 mls @ 42 mls/hr 08/13/18 09:00 08/14 10:19 D5w/1/2ns + Kcl 10 Meq Inj IV.CONT 42 mls/hr .[id number] CIARAN Administration Potassium Chloride 20 meq in 100 mls @ 10 mls/hr 08/14/18 09:30 08/14/18 10: 20 Kcl 20 Meq Premix Inj IV.SIG 08/14/18 19:29 10 mls/hr ONCE ONE Administration Labetalol HCl 10 mg 08/05/18 09:17 08/05/18 09:35 Trandate Inj IV.PUSH 10 mg Q4H PRN Administration SBP>180, DBP>100, HR>65 Lorazepam 0.25 mg 08/14/18 08:43 08/14/18 10:20 Ativan Inj IV.PUSH 0.25 mg Q8H PRN Administration QANXIETY Morphine Sulfate 1 mg 08/05/18 02:03 08/13/18 00:38 Morphine Inj IV.PUSH 1 mg Q3H PRN Administration PAIN 3-5; IF UABLE TO TAKE PO Morphine Sulfate 3 mg 08/05/18 02:03 08/08/18 17:36 Morphine Inj IV.PUSH 3 mg Q3H PRN Administration PAIN 6-10;IF UNABLE TO TAKE PO Naloxone HCl 0.4 mg 08/05/18 02:03 Narcan Inj IV.PUSH UNSCH PRN SEE LABEL COMMENTS Ondansetron HCl 4 mg 08/05/18 02:03 08/11/18 03:12 Zofran Inj IV.PUSH 4 mg Q6H PRN Administration NAUSEA OR VOMITING Pantoprazole Sodium 40 mg 08/05/18 03:00 08/14/18 04:33 Protonix Inj IV.PUSH 40 mg Q24H CIARAN Administration Sodium Chloride 2 ml 08/05/18 21:00 08/14/18 10:20 Ns Flush IV.FLUSH Not Given BID CIARAN Sodium Chloride 2 ml 08/05/18 09:25 08/06/18 13:32 Ns Flush IV.FLUSH 2 ml PRN PRN Administration FLUSH AFTER USING IV ACCESS Physical Exam Vital signs: Vital Signs 08/13/18 20:00 08/13/18 21:00 08/14/18 00:00 Temperature 97.8 F 97.9 F Pulse Rate 100 H 81 86 Respiratory Rate 20 18 Blood Pressure 165/73 H 157/82 H Pulse Oximetry 92 L 96 08/14/18 00:30 08/14/18 08:00 08/14/18 08:31 Temperature 97.4 F L Pulse Rate 79 82 Respiratory Rate 17 16 Blood Pressure 160/71 H 160/73 H Pulse Oximetry 92 L 95 08/14/18 12:00 08/14/18 12:50 08/14/18 16:00 Temperature 97.3 F L 97.3 F L Pulse Rate 88 77 88 Respiratory Rate 16 16 16 Blood Pressure 161/79 H 161/79 H Pulse Oximetry 98 98 Intake & Output 08/13/18 08/14/18 08/14/18 18:59 06:59 18:59 Intake Total 2300 / 2300 Output Total 300 / 300 200 / 200 200 / 200 Balance -300 / -300 -200 / -200 2100 / 2100 Weight 167 lb 1.766 oz Intake: IV 1100 / 1100 D5W/1/2NS + KCL 10 mEq Inj 1, 1000 / 1000 000 ML @ 42 mls/hr IV.CONT . [id number] CIARAN Rx#:[id number] KCl 20 mEq Premix Inj 20 meq In 100 / 100 100 ml @ 10 mls/hr IV.SIG ONCE ONE Rx#:[id number] Oral 1200 / 1200 Output: Urine 200 / 200 Gastric Drainage 300 / 300 200 / 200 Right Nare Nasogastric Tube 300 / 300 200 / 200 Other: # Voids 5 3 5 Date of Last Bowel Movement 08/14/18 # Bowel Movements 1 - Constitutional no acute distress - Routine Respiratory Exam Comments: Clear to auscultation with moderately severe reduced air exchange bilaterally - Routine Cardiovascular Exam Comments: IRRR - Routine Abdominal Exam Comments: Soft, mildly distended, bowel sounds present, no masses, nontender - Routine Extremities Exam Comments: No edema. No calf tenderness or Homans sign Results - Labs CBC & Chem 7: 08/08/18 08:03 08/14/18 06:37 Laboratory Results - last 24 hr 08/13/18 08/14/18 16:36 06:37 Sodium 142 Potassium 2.6 L* 2.6 L* Chloride 99 Carbon Dioxide 36.5 H Anion Gap 7 BUN 10 Creatinine 0.63 Estimated GFR 89 Random Glucose 82 Calcium 7.8 L Assessment and Plan - Assessment (1) Small bowel obstruction Code(s): K56.609 - Unspecified intestinal obstruction, unspecified as to partial versus complete obstruction Status: Acute Plan: Patient is status post lysis of adhesions. Bowel function has returned. Patient tolerating full liquid diet. Will discontinue IV fluids. (2) Hypokalemia Code(s): E87.6 - Hypokalemia Status: Acute Plan: The patient is now tolerating p.o. Will begin an oral potassium supplement. Follow potassium level. (3) Chronic atrial fibrillation Code(s): I48.2 - Chronic atrial fibrillation Status: Chronic Plan: Ventricular rate is well controlled. Discontinue Lovenox and resume Eliquis (4) Chronic obstructive pulmonary disease Code(s): J44.9 - Chronic obstructive pulmonary disease, unspecified Status: Chronic Plan: Will begin to wean oxygen. Continue with nebulizer treatments (5) Hypertension Code(s): I10 - Essential (primary) hypertension Status: Chronic Plan: Blood pressure is higher. Will begin spironolactone 25 mg daily and amlodipine 2.5 mg daily. Monitor blood pressure. (6) GERD (gastroesophageal reflux disease) Code(s): K21.9 - Gastro-esophageal reflux disease without esophagitis Status: Chronic Plan: Change to p.o. pantoprazole. (7) Hypothyroidism Code(s): E03.9 - Hypothyroidism, unspecified Status: Chronic Plan: Resume levothyroxine (8) Ileitis Code(s): K52.9 - Noninfective gastroenteritis and colitis, unspecified Status : Resolved Plan: Resolved. Status post lysis of adhesions. (4) Chronic obstructive pulmonary disease Qualifiers: COPD type: emphysema Emphysema type: panlobular Qualified Code(s): J43.1 - Panlobular emphysema (5) Hypertension Qualifiers: Hypertension type: essential hypertension Qualified Code(s): I10 - Essential (primary) hypertension (6) GERD (gastroesophageal reflux disease) Qualifiers: Esophagitis presence: without esophagitis Qualified Code(s): K21.9 - Gastro- esophageal reflux disease without esophagitis (7) Hypothyroidism Qualifiers: Hypothyroidism type: unspecified Qualified Code(s): E03.9 - Hypothyroidism, unspecified
[2018-08-15] MEDS: Levothyroxine 50 MCG Tablet PO SCH (05:16)
[2018-08-15 06:53] LABS: Baso % (Auto) 0.4 % (0.0-2.0); Eos # (Auto) 0.3 th/mm3 (0.0-0.4); Eos % (Auto) 3.3 % (0.0-4.0); Hematocrit 38.8 % (35.0-46.0); Hemoglobin 12.7 gm/dL (11.6-15.3); Lymph # (Auto) 0.9 th/mm3 (1.0-4.8); Lymph % (Auto) 10.2 % (9.0-44.0); Mean Corpuscular HGB Conc 32.6 % (32.0-36.0); Mean Corpuscular Hemoglobin 29.7 pg (27.0-34.0); Mean Platelet Volume 10.4 fL (7.0-11.0); Mono # (Auto) 0.6 th/mm3 (0.0-0.9); Mono % (Auto) 7.3 % (0.0-8.0); Neut # (Auto) 6.7 th/mm3 (1.8-7.7); Neut % (Auto) 78.8 % (16.0-70.0); Platelet Count 227 th/mm3 (150-450); Red Blood Count 4.26 mil/mm3 (4.00-5.30); Red Cell Distribution Width 16.8 % (11.6-17.2); White Blood Count 8.5 th/mm3 (4.0-11.0)
[2018-08-15 07:13] LABS: Calcium 7.9 mg/dL (8.5-10.1); Carbon Dioxide 36.9 meq/L (21.0-32.0)
[2018-08-15] MEDS: Sodium Chloride 0.9% 2 ML Flush BID IV.FLUSH SCH ×2 (08:13→20:19)
--- NOTE | 2018-08-15 08:56 | P.DCO ---
- Physical Therapy Order: Evaluate and treat, Improve ambulation, Strength and gait training - Occupational Therapy Order: Improve ADL, Fine motor coordination - Home Health Nursing Order: Signs/symptoms of disease process, Oxygen administration education, Medication education-adverse effect - Home Health Aide Order: To assist in: Bathing and personal care, microarray specialist and meal prep - Case Management Consult Yes - Certification I have seen patient Marcia Joya on 08/15/18. My clinical findings support the need for the requested home health care services because: Patient has SOB, Deconditioned with increased weakness, Impaired cognition/ judgement I certify that my clinical findings support that this patient is homebound because: Post-op weakness, Impaired cognitive ability/safety, Unsafe to leave home unassisted, Unable to use public transportation
[2018-08-15] MEDS ORDERED: Spironolactone 25 MG Tablet PO SCH (09:00)
[2018-08-15] MEDS ORDERED: amLODIPine 5 MG Tablet PO SCH (09:00)
--- NOTE | 2018-08-15 09:10 | P.PN ---
Subjective Interval history: Uneventful night. Patient slept well. Feels like she needs to have another bowel movement. Has tolerated a full liquid diet without any nausea or abdominal pain. Blood pressure under better control this morning. Patient has started oral antihypertensive medication this morning. Denies any chest pain or palpitations. Comfortable with oxygen at 3 L/min per nasal cannula. Oxygen saturation 99%. Oxygen was not decreased as ordered. Active Medications Generic Name Dose Route Start Last Admin Trade Name Freq PRN Reason Stop Dose Admin Hydrocodone Bitart/Acetaminophen 1 tab 08/11/18 19:00 [place] 5/325 PO Q4H PRN PAIN SCALE 1 TO 5 Albuterol 1 ampul 08/10/18 20:00 08/14/18 19:27 Duoneb Neb (Ciaran) NEB 1 ampul TID NEB CIARAN Administration Albuterol 1 ampul 08/10/18 17:13 08/10/18 17:52 Duoneb Neb (Prn) NEB 1 ampul Q2HR NEB PRN Administration SHORTNESS OF BREATH Amlodipine Besylate 2.5 mg 08/15/18 09:00 08/15/18 08:09 Norvasc PO 2.5 mg DAILY CIARAN Administration Apixaban 2.5 mg 08/14/18 21:00 08/15/18 08:09 Eliquis PO 2.5 mg BID CIARAN Administration Levothyroxine Sodium 50 mcg 08/15/18 06:00 08/15/18 05:16 Synthroid PO 50 mcg DAILY@0600 CIARAN Administration Lorazepam 0.25 mg 08/14/18 18:20 Ativan PO Q8H PRN ANXIETY AND/OR AGITATION Ondansetron HCl 4 mg 08/05/18 02:03 08/11/18 03:12 Zofran Inj IV.PUSH 4 mg Q6H PRN Administration NAUSEA OR VOMITING Pantoprazole Sodium 40 mg 08/15/18 09:00 08/15/18 08:09 Protonix PO 40 mg DAILY CIARAN Administration Potassium Chloride 20 meq 08/14/18 21:00 08/15/18 08:09 Klor-Con 10 PO 20 meq BID CIARAN Administration Sodium Chloride 2 ml 08/05/18 21:00 08/15/18 08:13 Ns Flush IV.FLUSH 2 ml BID CIARAN Administration Sodium Chloride 2 ml 08/05/18 09:25 08/06/18 13:32 Ns Flush IV.FLUSH 2 ml PRN PRN Administration FLUSH AFTER USING IV ACCESS Spironolactone 25 mg 08/15/18 09:00 08/15/18 08:09 Aldactone PO 25 mg DAILY CIARAN Administration Physical Exam Vital signs: Vital Signs 08/14/18 12:00 08/14/18 12:50 08/14/18 16:00 Temperature 97.3 F L 97.3 F L Pulse Rate 88 77 88 Respiratory Rate 16 16 16 Blood Pressure 161/79 H 161/79 H Pulse Oximetry 98 98 08/14/18 19:27 08/14/18 20:00 08/15/18 00:00 Temperature 98 F 98.2 F Pulse Rate 69 100 H 85 Respiratory Rate 22 22 22 Blood Pressure 142/70 H 159/78 H Pulse Oximetry 93 L 95 94 L 08/15/18 04:00 Temperature 98.1 F Pulse Rate 94 H Respiratory Rate 22 Blood Pressure 135/81 Pulse Oximetry 95 Intake & Output 08/14/18 08/15/18 08/15/18 18:59 06:59 18:59 Intake Total 2300 / 2300 Output Total 200 / 200 Balance 2100 / 2100 Weight 163 lb 12.855 oz Intake: IV 1100 / 1100 D5W/1/2NS + KCL 10 mEq Inj 1, 1000 / 1000 000 ML @ 42 mls/hr IV.CONT . [id number] CIARAN Rx#:[id number] KCl 20 mEq Premix Inj 20 meq In 100 / 100 100 ml @ 10 mls/hr IV.SIG ONCE ONE Rx#:[id number] Oral 1200 / 1200 Output: Urine 200 / 200 Other: # Voids 5 3 Date of Last Bowel Movement 08/14/18 # Bowel Movements 1 1 - Routine Respiratory Exam Comments: Clear to auscultation but moderately severe reduced air exchange bilaterally - Routine Cardiovascular Exam Comments: IRRR - Routine Abdominal Exam Comments: Moderate distention, soft, nontender with bowel sounds present. No masses. Results - Labs CBC & Chem 7: 08/15/18 06:35 08/15/18 06:35 Laboratory Results - last 24 hr 08/14/18 08/15/18 08/15/18 17:25 06:35 06:35 WBC 8.5 RBC 4.26 Hgb 12.7 Hct 38.8 MCV 91.0 MCH 29.7 MCHC 32.6 RDW 16.8 Plt Count 227 MPV 10.4 Neut % (Auto) 78.8 H Lymph % (Auto) 10.2 [place] % (Auto) 7.3 Eos % (Auto) 3.3 Baso % (Auto) 0.4 Neut # (Auto) 6.7 Lymph # (Auto) 0.9 L [place] # (Auto) 0.6 Eos # (Auto) 0.3 Baso # (Auto) 0.0 WBC Differential . Differential Comment Auto diff final Sodium 143 Potassium 2.8 L* 3.0 L Chloride 100 Carbon Dioxide 36.9 H Anion Gap 6 BUN 11 Creatinine 0.65 Estimated GFR 86 L Random Glucose 86 Calcium 7.9 L Assessment and Plan - Assessment (1) Small bowel obstruction Code(s): K56.609 - Unspecified intestinal obstruction, unspecified as to partial versus complete obstruction Status: Acute Plan: Patient is status post lysis of adhesions. Bowel function has returned. Has tolerated a full liquid diet. Will advance to heart healthy diet. Increase activity. (2) Hypokalemia Code(s): E87.6 - Hypokalemia Status: Acute Plan: Improving. Continue with oral potassium supplement. (3) Chronic atrial fibrillation Code(s): I48.2 - Chronic atrial fibrillation Status: Chronic Plan: Ventricular rate is well controlled. Continue with Eliquis. (4) Chronic obstructive pulmonary disease Code(s): J44.9 - Chronic obstructive pulmonary disease, unspecified Status: Chronic Plan: Respiratory status is improved. Will continue to try to wean oxygen. Continue with nebulizer treatments. (5) Hypertension Code(s): I10 - Essential (primary) hypertension Status: Chronic Plan: Have resumed amlodipine. Patient's weight has decreased. Will discontinue spironolactone. Follow intake and output. (6) GERD (gastroesophageal reflux disease) Code(s): K21.9 - Gastro-esophageal reflux disease without esophagitis Status: Chronic Plan: Continue pantoprazole. (7) Hypothyroidism Code(s): E03.9 - Hypothyroidism, unspecified Status: Chronic Plan: Continue levothyroxine (8) Ileitis Code(s): K52.9 - Noninfective gastroenteritis and colitis, unspecified Status : Resolved Plan: Resolved. Status post lysis of adhesions. - Attending Attestation The patient has refused intermediate facility placement for progressive rehabilitation. I have consulted case management for referral to home health services. Anticipate discharge home in the next 1-2 days. (4) Chronic obstructive pulmonary disease Qualifiers: COPD type: emphysema Emphysema type: panlobular Qualified Code(s): J43.1 - Panlobular emphysema (5) Hypertension Qualifiers: Hypertension type: essential hypertension Qualified Code(s): I10 - Essential (primary) hypertension (6) GERD (gastroesophageal reflux disease) Qualifiers: Esophagitis presence: without esophagitis Qualified Code(s): K21.9 - Gastro- esophageal reflux disease without esophagitis (7) Hypothyroidism Qualifiers: Hypothyroidism type: unspecified Qualified Code(s): E03.9 - Hypothyroidism, unspecified
[2018-08-16] MEDS: Levothyroxine 50 MCG Tablet PO SCH (05:00)
[2018-08-16] MEDS ORDERED: amLODIPine 5 MG Tablet PO ONE (06:30)
[2018-08-16 06:35] LABS: Anion Gap 8 meq/L (5-15); Blood Urea Nitrogen 11 mg/dL (7-18); Calcium 7.9 mg/dL (8.5-10.1); Carbon Dioxide 37.1 meq/L (21.0-32.0); Chloride 98 meq/L (98-107); Glomerular Filtration Rate Greater Than 89 mL/min (>89); Glucose,Random 94 mg/dL (74-106); Sodium 143 meq/L (136-145)
[2018-08-16] MEDS ORDERED: Bisacodyl 10 MG Supp RECTAL ONE (08:38)
--- NOTE | 2018-08-16 08:42 | P.PN ---
Subjective Interval history: Blood pressure was elevated overnight. Patient did not sleep well and was confused. Received clonidine and amlodipine. Awake and alert this morning. Out of bed in chair. Denies any chest pain or shortness of breath. Has been tolerating diet well but has had no further bowel movements. Abdomen is more distended. Has had no abdominal pain. Passing flatus regularly. Ambulated in the halls with physical therapy. Comfortable with oxygen at 1 L/min per nasal cannula. Active Medications Generic Name Dose Route Start Last Admin Trade Name Freq PRN Reason Stop Dose Admin Hydrocodone Bitart/Acetaminophen 1 tab 08/11/18 19:00 [place] 5/325 PO Q4H PRN PAIN SCALE 1 TO 5 Albuterol 1 ampul 08/10/18 20:00 08/16/18 07:32 Duoneb Neb (Ciaran) NEB 1 ampul TID NEB CIARAN Administration Albuterol 1 ampul 08/10/18 17:13 08/16/18 01:58 Duoneb Neb (Prn) NEB 1 ampul Q2HR NEB PRN Administration SHORTNESS OF BREATH Amlodipine Besylate 2.5 mg 08/15/18 09:00 08/15/18 08:09 Norvasc PO 2.5 mg DAILY CIARAN Administration Apixaban 2.5 mg 08/14/18 21:00 08/15/18 20:19 Eliquis PO 2.5 mg BID CIARAN Administration Levothyroxine Sodium 50 mcg 08/15/18 06:00 08/16/18 05:00 Synthroid PO 50 mcg DAILY@0600 CIARAN Administration Lorazepam 0.25 mg 08/14/18 18:20 08/16/18 01:14 Ativan PO 0.25 mg Q8H PRN Administration ANXIETY AND/OR AGITATION Ondansetron HCl 4 mg 08/05/18 02:03 08/11/18 03:12 Zofran Inj IV.PUSH 4 mg Q6H PRN Administration NAUSEA OR VOMITING Pantoprazole Sodium 40 mg 08/15/18 09:00 08/15/18 08:09 Protonix PO 40 mg DAILY CIARAN Administration Potassium Chloride 20 meq 08/14/18 21:00 08/15/18 20:19 Klor-Con 10 PO 20 meq BID CIARAN Administration Sodium Chloride 2 ml 08/05/18 21:00 08/15/18 20:19 Ns Flush IV.FLUSH 2 ml BID CIARAN Administration Sodium Chloride 2 ml 08/05/18 09:25 08/06/18 13:32 Ns Flush IV.FLUSH 2 ml PRN PRN Administration FLUSH AFTER USING IV ACCESS Physical Exam Vital signs: Vital Signs 08/15/18 09:21 08/15/18 12:00 08/15/18 13:00 Temperature 97.4 F L Pulse Rate 88 90 88 Respiratory Rate 20 16 20 Blood Pressure 151/89 H Pulse Oximetry 98 91 L 08/15/18 16:00 08/15/18 19:46 08/15/18 20:00 Temperature 97.6 F 99.1 F Pulse Rate 85 85 91 H Respiratory Rate 15 18 22 Blood Pressure 152/77 H 152/77 H Pulse Oximetry 99 99 96 08/16/18 00:00 08/16/18 01:59 08/16/18 04:00 Temperature 98.7 F 98.2 F Pulse Rate 91 H 80 96 H Respiratory Rate 22 19 22 Blood Pressure 182/86 H 205/99 H Pulse Oximetry 95 97 08/16/18 06:11 08/16/18 07:33 Temperature 97.8 F Pulse Rate 89 114 H Respiratory Rate 22 20 Blood Pressure 178/77 H Pulse Oximetry 95 95 Intake & Output 08/15/18 08/16/18 08/16/18 18:59 06:59 18:59 Intake Total 1200 / 1200 120 / 120 Balance 1200 / 1200 120 / 120 Weight 165 lb 2.02 oz Intake: Oral 1200 / 1200 120 / 120 Other: # Voids 6 # Urine Diapers 2 # Bowel Movements 0 - Constitutional no acute distress Comments: Sitting in a chair. - Routine Neck Exam Present: supple Comments: No lymphadenopathy or JVD. Trachea midline - Routine Respiratory Exam Comments: Clear to auscultation but moderately severe reduced air exchange bilaterally - Routine Cardiovascular Exam Comments: IRRR - Routine Abdominal Exam Comments: Soft but moderately severe distention, bowel sounds present, no masses. No tenderness. - Routine Extremities Exam Comments: No edema or calf tenderness. Results - Labs CBC & Chem 7: 08/15/18 06:35 08/16/18 04:49 Laboratory Results - last 24 hr 08/16/18 04:49 Sodium 143 Potassium 3.0 L Chloride 98 Carbon Dioxide 37.1 H Anion Gap 8 BUN 11 Creatinine 0.62 Estimated GFR Greater than 89 Random Glucose 94 Calcium 7.9 L Assessment and Plan - Assessment (1) Small bowel obstruction Code(s): K56.609 - Unspecified intestinal obstruction, unspecified as to partial versus complete obstruction Status: Acute Plan: Patient is status post lysis of adhesions. Patient is tolerating p.o. but has not had further bowel movements. Abdomen is more distended. Will check a KUB. If no evidence of recurrent obstruction, consider suppository. Continue to increase activity. (2) Hypokalemia Code(s): E87.6 - Hypokalemia Status: Acute Plan: Improving. Continue with oral potassium supplement. Follow potassium level (3) Chronic atrial fibrillation Code(s): I48.2 - Chronic atrial fibrillation Status: Chronic Plan: Ventricular rate is well controlled. Continue with Eliquis. (4) Chronic obstructive pulmonary disease Code(s): J44.9 - Chronic obstructive pulmonary disease, unspecified Status: Chronic Plan: Respiratory status is improved. Continue with nebulizer treatments. Patient will require oxygen continuously at home. I have asked physical therapy to perform walk test for qualification of continuous oxygen. Patient will also need walker at home. (5) Hypertension Code(s): I10 - Essential (primary) hypertension Status: Chronic Plan: Blood pressure was elevated overnight due to anxiety and confusion. Provide clonidine as needed for elevated blood pressure. Increase amlodipine to 5 mg daily. (6) GERD (gastroesophageal reflux disease) Code(s): K21.9 - Gastro-esophageal reflux disease without esophagitis Status: Chronic Plan: Continue pantoprazole. (7) Hypothyroidism Code(s): E03.9 - Hypothyroidism, unspecified Status: Chronic Plan: Continue levothyroxine (8) Ileitis Code(s): K52.9 - Noninfective gastroenteritis and colitis, unspecified Status : Resolved Plan: Resolved. Status post lysis of adhesions. (9) Acute delirium Code(s): R41.0 - Disorientation, unspecified Status: Acute Plan: The patient is having nighttime confusion and insomnia. Will provide a low- dose of trazodone at bedtime to help her sleep. She reorients well during the day. (4) Chronic obstructive pulmonary disease Qualifiers: COPD type: emphysema Emphysema type: panlobular Qualified Code(s): J43.1 - Panlobular emphysema (5) Hypertension Qualifiers: Hypertension type: essential hypertension Qualified Code(s): I10 - Essential (primary) hypertension (6) GERD (gastroesophageal reflux disease) Qualifiers: Esophagitis presence: without esophagitis Qualified Code(s): K21.9 - Gastro- esophageal reflux disease without esophagitis (7) Hypothyroidism Qualifiers: Hypothyroidism type: unspecified Qualified Code(s): E03.9 - Hypothyroidism, unspecified
[2018-08-16] MEDS ORDERED: Polyethylene Glycol 3350 17 GM Packet PO ONE (09:00)
[2018-08-16] MEDS: Sodium Chloride 0.9% 2 ML Flush BID IV.FLUSH SCH ×2 (09:07→20:33)
--- NOTE | 2018-08-16 10:02 | XR ---
EXAM DATE: 08/16/2018 9:32 AM EST AGE/SEX: 87 years / Female INDICATIONS: Distention. CLINICAL DATA: This is the patient's subsequent encounter. Patient reports that signs and symptoms h ave been present for 2 weeks and indicates a pain score of 0/10. MEDICAL/SURGICAL HISTORY: Hypertension. None. COMPARISON: [facility], ABDOMEN 1V KUB, 08/11/2018. . FINDINGS: Compared to 08/11 there is persistent distention of mid small bowel. Solid stool is seen in the ascen ding and descending colon. There is moderate gastric distention as well. Minimal parenchymal changes in both lung bases. CONCLUSION: Persistent small bowel distention. Nasogastric tube is not evident. Electronically signed by: Ad Cobian MD 08/16/2018 10:00 AM EST
--- NOTE | 2018-08-16 10:19 | P.PNGS ---
Subjective Interval history: Up to chair Hungry---would like scrabbled eggs Physical Exam Vital signs: Vital Signs 08/15/18 12:00 08/15/18 13:00 08/15/18 16:00 Temperature 97.4 F L 97.6 F Pulse Rate 90 88 85 Respiratory Rate 16 20 15 Blood Pressure 151/89 H 152/77 H Pulse Oximetry 91 L 99 08/15/18 19:46 08/15/18 20:00 08/16/18 00:00 Temperature 99.1 F 98.7 F Pulse Rate 85 91 H 91 H Respiratory Rate 18 22 22 Blood Pressure 152/77 H 182/86 H Pulse Oximetry 99 96 95 08/16/18 01:59 08/16/18 04:00 08/16/18 06:11 Temperature 98.2 F 97.8 F Pulse Rate 80 96 H 89 Respiratory Rate 19 22 22 Blood Pressure 205/99 H 178/77 H Pulse Oximetry 97 95 08/16/18 07:33 08/16/18 08:00 Temperature 97.2 F L Pulse Rate 114 H 81 Respiratory Rate 20 20 Blood Pressure 145/74 H Pulse Oximetry 95 98 Intake & Output 08/15/18 08/16/18 08/16/18 18:59 06:59 18:59 Intake Total 1200 / 1200 120 / 120 Balance 1200 / 1200 120 / 120 Weight 74.9 kg Intake: Oral 1200 / 1200 120 / 120 Other: # Voids 6 # Urine Diapers 2 # Bowel Movements 0 Narrative: Alert and awake Abd: slightly distended; non tender; lap sites c/d/i Results - Labs 08/15/18 06:35 08/17/18 04:41 Laboratory Results - last 24 hr 08/16/18 04:49 Sodium 143 Potassium 3.0 L Chloride 98 Carbon Dioxide 37.1 H Anion Gap 8 BUN 11 Creatinine 0.62 Estimated GFR Greater than 89 Random Glucose 94 Calcium 7.9 L - Imaging Imaging: ITS Impressions Abdomen/Pelvis CTA 08/05/18 00:00 CONCLUSION: 1. 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 Celiac and FLETCHER are patent. Central SMV and portal vein are patent. Therefore, mesenteric ischemia as an etiology for patient's small bowel obstruction and proximal ileitis is unlikely. 2. 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 3. Remainder of the exam is unchanged from earlier abdominal CT exam with redemonstration of acute small bowel obstruction secondary to severe wall thickening involving the proximal ileum in the central pelvis. No evidence for perforation, bowel infarction or abscess at this time. Chest X-Ray 08/05/18 00:00 CONCLUSION: No acute cardiopulmonary disease demonstrated. Mild chronic interstitial opacities are stable. Abdomen/Pelvis CT 08/05/18 23:49 CONCLUSION: 1. Approximately 10 cm long segment of severe wall thickening involving the proximal ileum within the pelvic cavity and with associated acute small bowel obstruction. The etiology of wall thickening is uncertain. Infectious, inflammatory and neoplastic etiologies are all in the differential. 2. Associated trace ascites. Nothing organized or drainable. No free air. 3. Diverticulosis of the colon without diverticulitis. 4. Patchy cortical thinning/scarring and cysts of both kidneys. There are also nonobstructing stones of the right kidney. 5. Bilateral adrenal nodularity, indeterminate but statistically most likely benign adenomatous change. 6. Aortoiliac atherosclerosis. No aneurysm seen. 7. Trace lung base atelectasis. 8. Coronary artery calcification. Visualized heart appears enlarged, mostly the left atrium. 9. Small hiatal hernia. Small Bowel X-Ray 08/07/18 00:00 CONCLUSION: Multiple dilated loops of small bowel. Markedly delayed transit of contrast in the small bowel. Contrast only progresses to the mid small bowel at 5 hours. Findings are suspicious for possible small bowel obstruction. Delayed films could be obtained to evaluate progress of contrast. Abdomen X-Ray 08/16/18 00:00 CONCLUSION: Persistent small bowel distention. Nasogastric tube is not evident. Assessment and Plan - Assessment (1) Small bowel obstruction Code(s): K56.609 - Unspecified intestinal obstruction, unspecified as to partial versus complete obstruction Status: Resolved Plan: 87 year old female with SBO s/p dx lap and ANTLEMO -KUB pending -Regular diet--- told her to eat small meals -OOB and mobilize; continue PT -Added MOM, Miralax and suppository - Attending Attestation The exam, history, and the medical decision-making described in the above note were completed with the assistance of the mid-level provider. I reviewed and agree with the findings presented. I attest that I had a [id number] encounter with the patient on the same day, and personally performed and documented my assessment and findings in the medical record. Patient s/p lap ANTELMO doing well Acute pain controlled Exam: Alert, Oriented, abd soft Continue treatment, supportive care, advance diet slowly
[2018-08-16] MEDS: amLODIPine 5 MG Tablet PO SCH (11:08)
[2018-08-16] MEDS: traZODone 50 MG Tablet PO SCH (20:30)
[2018-08-17] MEDS: Levothyroxine 50 MCG Tablet PO SCH (05:44)
[2018-08-17 06:41] LABS: Calcium 8.4 mg/dL (8.5-10.1); Carbon Dioxide 39.1 meq/L (21.0-32.0); Potassium 3.7 meq/L (3.5-5.1)
[2018-08-17] MEDS: amLODIPine 5 MG Tablet PO SCH (09:16)
[2018-08-17] MEDS: Sodium Chloride 0.9% 2 ML Flush BID IV.FLUSH SCH ×2 (09:18→21:50)
--- NOTE | 2018-08-17 11:56 | P.PN ---
Subjective Interval history: The patient is out of bed in a chair. She had 2 bowel movements yesterday. Denies any nausea or vomiting. Tolerating diet well. Remains on oxygen continuously. Ambulated in [facility] with physical therapy. Denies any chest pain or palpitations. Less anxious. Mental status at baseline. Blood pressure under better control this morning. Active Medications Generic Name Dose Route Start Last Admin Trade Name Freq PRN Reason Stop Dose Admin Hydrocodone Bitart/Acetaminophen 1 tab 08/11/18 19:00 [place] 5/325 PO Q4H PRN PAIN SCALE 1 TO 5 Albuterol 1 ampul 08/10/18 20:00 08/17/18 11:29 Duoneb Neb (Ciaran) NEB 1 ampul TID NEB CIARAN Administration Albuterol 1 ampul 08/10/18 17:13 08/17/18 05:51 Duoneb Neb (Prn) NEB 1 ampul Q2HR NEB PRN Administration SHORTNESS OF BREATH Amlodipine Besylate 5 mg 08/16/18 09:00 08/17/18 09:16 Norvasc PO 5 mg DAILY CIARAN Administration Apixaban 2.5 mg 08/14/18 21:00 08/17/18 09:16 Eliquis PO 2.5 mg BID CIARAN Administration Levothyroxine Sodium 50 mcg 08/15/18 06:00 08/17/18 05:44 Synthroid PO 50 mcg DAILY@0600 CIARAN Administration Lorazepam 0.25 mg 08/14/18 18:20 08/16/18 01:14 Ativan PO 0.25 mg Q8H PRN Administration ANXIETY AND/OR AGITATION Ondansetron HCl 4 mg 08/05/18 02:03 08/11/18 03:12 Zofran Inj IV.PUSH 4 mg Q6H PRN Administration NAUSEA OR VOMITING Pantoprazole Sodium 40 mg 08/15/18 09:00 08/17/18 09:16 Protonix PO 40 mg DAILY CIARAN Administration Potassium Chloride 20 meq 08/14/18 21:00 08/17/18 09:16 Klor-Con 10 PO 20 meq BID CIARAN Administration Sodium Chloride 2 ml 08/05/18 21:00 08/17/18 09:18 Ns Flush IV.FLUSH 2 ml BID CIARAN Administration Sodium Chloride 2 ml 08/05/18 09:25 08/06/18 13:32 Ns Flush IV.FLUSH 2 ml PRN PRN Administration FLUSH AFTER USING IV ACCESS Trazodone HCl 25 mg 08/16/18 21:00 08/16/18 20:30 Desyrel PO 25 mg HS CIARAN Administration Physical Exam Vital signs: Vital Signs 08/16/18 12:00 08/16/18 13:13 08/16/18 16:00 Temperature 97.3 F L 97.3 F L Pulse Rate 80 88 93 H Respiratory Rate 20 17 20 Blood Pressure 146/65 H 148/68 H Pulse Oximetry 98 97 08/16/18 19:00 08/16/18 20:00 08/17/18 00:00 Temperature 97.4 F L 98.0 F Pulse Rate 80 86 94 H Respiratory Rate 20 18 18 Blood Pressure 174/81 H 175/85 H Pulse Oximetry 99 92 L 08/17/18 04:00 08/17/18 05:51 08/17/18 08:00 Temperature 98.0 F 98.2 F Pulse Rate 84 95 H 98 H Respiratory Rate 18 24 20 Blood Pressure 139/65 147/68 H Pulse Oximetry 92 L 97 97 08/17/18 11:31 Temperature Pulse Rate 113 H Respiratory Rate 16 Blood Pressure Pulse Oximetry Intake & Output 08/16/18 08/17/18 08/17/18 18:59 06:59 18:59 Intake Total 1200 / 1200 100 / 100 Output Total 2 / 2 Balance 1200 / 1200 100 / 100 -2 / -2 Weight 163 lb 9.328 oz Intake: IV 100 / 100 Oral 1200 / 1200 Output: Urine 2 / 2 Other: # Voids 4 3 Date of Last Bowel Movement 08/16/18 08/16/18 # Bowel Movements 2 - Constitutional no acute distress - Routine Respiratory Exam Comments: Clear to auscultation with moderately severe reduced air exchange bilaterally - Routine Cardiovascular Exam Comments: IRRR - Routine Abdominal Exam Comments: Moderate distention but less than prior examination, soft, nontender with bowel sounds present - Routine Extremities Exam Comments: No calf tenderness or Homans sign. No edema. Results - Labs CBC & Chem 7: 08/15/18 06:35 08/17/18 04:41 Laboratory Results - last 24 hr 08/17/18 04:41 Sodium 141 Potassium 3.7 Chloride 97 L Carbon Dioxide 39.1 H Anion Gap 5 BUN 11 Creatinine 0.65 Estimated GFR 86 L Random Glucose 88 Calcium 8.4 L Assessment and Plan - Assessment (1) Small bowel obstruction Code(s): K56.609 - Unspecified intestinal obstruction, unspecified as to partial versus complete obstruction Status: Acute Plan: Patient is status post lysis of adhesions. Tolerating diet well. Bowels moving. (2) Hypokalemia Code(s): E87.6 - Hypokalemia Status: Resolved Plan: Corrected. Will reduce potassium supplement. Follow potassium level as outpatient (3) Chronic atrial fibrillation Code(s): I48.2 - Chronic atrial fibrillation Status: Chronic Plan: Ventricular rate is well controlled. Continue with Eliquis. (4) Chronic obstructive pulmonary disease Code(s): J44.9 - Chronic obstructive pulmonary disease, unspecified Status: Chronic Plan: Respiratory status is improved. Continue with nebulizer treatments. Patient will require oxygen continuously. Respiratory therapy walk test was not performed as ordered. I spoke with respiratory therapy and they will perform the test in the morning to document need for continuous oxygen during the day. (5) Hypertension Code(s): I10 - Essential (primary) hypertension Status: Chronic Plan: Blood pressure under better control today. Continue with current dosage of medication. Provide clonidine as needed for elevated blood pressure (6) GERD (gastroesophageal reflux disease) Code(s): K21.9 - Gastro-esophageal reflux disease without esophagitis Status: Chronic Plan: Continue pantoprazole. (7) Hypothyroidism Code(s): E03.9 - Hypothyroidism, unspecified Status: Chronic Plan: Continue levothyroxine (8) Ileitis Code(s): K52.9 - Noninfective gastroenteritis and colitis, unspecified Status : Resolved Plan: Resolved. Status post lysis of adhesions. (9) Acute delirium Code(s): R41.0 - Disorientation, unspecified Status: Resolved Plan: Improved. Will follow. Mental status currently at baseline (4) Chronic obstructive pulmonary disease Qualifiers: COPD type: emphysema Emphysema type: panlobular Qualified Code(s): J43.1 - Panlobular emphysema (5) Hypertension Qualifiers: Hypertension type: essential hypertension Qualified Code(s): I10 - Essential (primary) hypertension (6) GERD (gastroesophageal reflux disease) Qualifiers: Esophagitis presence: without esophagitis Qualified Code(s): K21.9 - Gastro- esophageal reflux disease without esophagitis (7) Hypothyroidism Qualifiers: Hypothyroidism type: unspecified Qualified Code(s): E03.9 - Hypothyroidism, unspecified
--- NOTE | 2018-08-17 16:15 | P.PNGS ---
Subjective Interval history: Up to chair Had 2 BMs today Physical Exam Vital signs: Vital Signs 08/16/18 19:00 08/16/18 20:00 08/17/18 00:00 Temperature 97.4 F L 98.0 F Pulse Rate 80 86 94 H Respiratory Rate 20 18 18 Blood Pressure 174/81 H 175/85 H Pulse Oximetry 99 92 L 08/17/18 04:00 08/17/18 05:51 08/17/18 08:00 Temperature 98.0 F 98.2 F Pulse Rate 84 95 H 98 H Respiratory Rate 18 24 20 Blood Pressure 139/65 147/68 H Pulse Oximetry 92 L 97 97 08/17/18 11:31 08/17/18 12:00 Temperature 97.3 F L Pulse Rate 113 H 87 Respiratory Rate 16 20 Blood Pressure 159/70 H Pulse Oximetry 99 Intake & Output 08/16/18 08/17/18 08/17/18 18:59 06:59 18:59 Intake Total 1200 / 1200 100 / 100 Output Total 5 / 5 Balance 1200 / 1200 100 / 100 -5 / -5 Weight 74.2 kg Intake: IV 100 / 100 Oral 1200 / 1200 Output: Urine 5 / 5 Other: # Voids 4 3 Date of Last Bowel Movement 08/16/18 08/16/18 # Bowel Movements 2 Narrative: Alert and awake Abd: slightly distended but non tender; soft Results - Labs 08/15/18 06:35 08/17/18 04:41 Laboratory Results - last 24 hr 08/17/18 04:41 Sodium 141 Potassium 3.7 Chloride 97 L Carbon Dioxide 39.1 H Anion Gap 5 BUN 11 Creatinine 0.65 Estimated GFR 86 L Random Glucose 88 Calcium 8.4 L - Imaging Imaging: ITS Impressions Abdomen/Pelvis CTA 08/05/18 00:00 CONCLUSION: 1. 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 Celiac and FLETCHER are patent. Central SMV and portal vein are patent. Therefore, mesenteric ischemia as an etiology for patient's small bowel obstruction and proximal ileitis is unlikely. 2. 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 3. Remainder of the exam is unchanged from earlier abdominal CT exam with redemonstration of acute small bowel obstruction secondary to severe wall thickening involving the proximal ileum in the central pelvis. No evidence for perforation, bowel infarction or abscess at this time. Chest X-Ray 08/05/18 00:00 CONCLUSION: No acute cardiopulmonary disease demonstrated. Mild chronic interstitial opacities are stable. Abdomen/Pelvis CT 08/05/18 23:49 CONCLUSION: 1. Approximately 10 cm long segment of severe wall thickening involving the proximal ileum within the pelvic cavity and with associated acute small bowel obstruction. The etiology of wall thickening is uncertain. Infectious, inflammatory and neoplastic etiologies are all in the differential. 2. Associated trace ascites. Nothing organized or drainable. No free air. 3. Diverticulosis of the colon without diverticulitis. 4. Patchy cortical thinning/scarring and cysts of both kidneys. There are also nonobstructing stones of the right kidney. 5. Bilateral adrenal nodularity, indeterminate but statistically most likely benign adenomatous change. 6. Aortoiliac atherosclerosis. No aneurysm seen. 7. Trace lung base atelectasis. 8. Coronary artery calcification. Visualized heart appears enlarged, mostly the left atrium. 9. Small hiatal hernia. Small Bowel X-Ray 08/07/18 00:00 CONCLUSION: Multiple dilated loops of small bowel. Markedly delayed transit of contrast in the small bowel. Contrast only progresses to the mid small bowel at 5 hours. Findings are suspicious for possible small bowel obstruction. Delayed films could be obtained to evaluate progress of contrast. Abdomen X-Ray 08/16/18 00:00 CONCLUSION: Persistent small bowel distention. Nasogastric tube is not evident. Assessment and Plan - Assessment (1) Small bowel obstruction Code(s): K56.609 - Unspecified intestinal obstruction, unspecified as to partial versus complete obstruction Status: Resolved Plan: 87 year old female with SBO s/p dx lap and ANTELMO -Regular diet--- encouraged small more frequent meals -OOB and mobilize -Okay to restart oral anticoagulation from GS standpoint -Likely will need HHC vs rehab - Attending Attestation The exam, history, and the medical decision-making described in the above note were completed with the assistance of the mid-level provider. I reviewed and agree with the findings presented. I attest that I had a [id number] encounter with the patient on the same day, and personally performed and documented my assessment and findings in the medical record. Patient s/p lap ANTELMO tolerating diet DC planning
[2018-08-17] MEDS: traZODone 50 MG Tablet PO SCH (21:46)
[2018-08-18] MEDS: Levothyroxine 50 MCG Tablet PO SCH (06:01)
--- NOTE | 2018-08-18 08:10 | P.PNGS ---
Subjective Interval history: Resting in bed No issues overnight Feeling much less bloated today Physical Exam Vital signs: Vital Signs 08/17/18 08:00 08/17/18 11:31 08/17/18 12:00 Temperature 98.2 F 97.3 F L Pulse Rate 98 H 113 H 87 Respiratory Rate 20 16 20 Blood Pressure 147/68 H 159/70 H Pulse Oximetry 97 99 08/17/18 16:00 08/17/18 19:39 08/17/18 20:00 Temperature 97.8 F 98.8 F Pulse Rate 82 91 H 87 Respiratory Rate 20 18 18 Blood Pressure 132/63 162/70 H Pulse Oximetry 96 99 99 08/18/18 00:00 Temperature 98.2 F Pulse Rate 96 H Respiratory Rate 18 Blood Pressure 142/69 H Pulse Oximetry 97 Intake & Output 08/17/18 08/18/18 08/18/18 18:59 06:59 18:59 Output Total 7 7 Balance -7 / -7 Weight 72.1 kg Output: Urine Stool Other: # Voids 5 Date of Last Bowel Movement 08/17/18 08/17/18 Narrative: Alert and awake Abd: soft; mildly distended although improved from yesterday; lap sites c/d/i Results - Labs 08/15/18 06:35 08/17/18 04:41 - Imaging Imaging: ITS Impressions Abdomen/Pelvis CTA 08/05/18 00:00 CONCLUSION: 1. 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 Celiac and FLETCHER are patent. Central SMV and portal vein are patent. Therefore, mesenteric ischemia as an etiology for patient's small bowel obstruction and proximal ileitis is unlikely. 2. 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 3. Remainder of the exam is unchanged from earlier abdominal CT exam with redemonstration of acute small bowel obstruction secondary to severe wall thickening involving the proximal ileum in the central pelvis. No evidence for perforation, bowel infarction or abscess at this time. Chest X-Ray 08/05/18 00:00 CONCLUSION: No acute cardiopulmonary disease demonstrated. Mild chronic interstitial opacities are stable. Abdomen/Pelvis CT 08/05/18 23:49 CONCLUSION: 1. Approximately 10 cm long segment of severe wall thickening involving the proximal ileum within the pelvic cavity and with associated acute small bowel obstruction. The etiology of wall thickening is uncertain. Infectious, inflammatory and neoplastic etiologies are all in the differential. 2. Associated trace ascites. Nothing organized or drainable. No free air. 3. Diverticulosis of the colon without diverticulitis. 4. Patchy cortical thinning/scarring and cysts of both kidneys. There are also nonobstructing stones of the right kidney. 5. Bilateral adrenal nodularity, indeterminate but statistically most likely benign adenomatous change. 6. Aortoiliac atherosclerosis. No aneurysm seen. 7. Trace lung base atelectasis. 8. Coronary artery calcification. Visualized heart appears enlarged, mostly the left atrium. 9. Small hiatal hernia. Small Bowel X-Ray 08/07/18 00:00 CONCLUSION: Multiple dilated loops of small bowel. Markedly delayed transit of contrast in the small bowel. Contrast only progresses to the mid small bowel at 5 hours. Findings are suspicious for possible small bowel obstruction. Delayed films could be obtained to evaluate progress of contrast. Abdomen X-Ray 08/16/18 00:00 CONCLUSION: Persistent small bowel distention. Nasogastric tube is not evident. Assessment and Plan - Assessment (1) Small bowel obstruction Code(s): K56.609 - Unspecified intestinal obstruction, unspecified as to partial versus complete obstruction Status: Resolved Plan: 87 year old female with SBO s/p dx lap and ANTELMO -Regular diet--- encouraged small more frequent meals -OOB and mobilize -Okay to restart oral anticoagulation from GS standpoint -Likely will need HHC vs rehab -Encouraged her to continue bowel regimen at home - Attending Attestation The exam, history, and the medical decision-making described in the above note were completed with the assistance of the mid-level provider. I reviewed and agree with the findings presented. I attest that I had a [id number] encounter with the patient on the same day, and personally performed and documented my assessment and findings in the medical record. Patient s/p lap ANTELMO SBO resolved and patient is ready for DC from surgery standpoint
[2018-08-18 08:31] VITALS: BP 158/71; PULSE 90; RESP 20; TEMP 98.3
[2018-08-18] MEDS: amLODIPine 5 MG Tablet PO SCH (09:03)
[2018-08-18 09:46] VITALS: O2SAT 87
--- NOTE | 2018-08-18 09:52 | P.PN ---
Subjective Interval history: the patient is tolerating diet well. Bowels are moving. Urine output is good. He ambulated with physical therapy using a 2 wheeled walker. Denies any nausea, vomiting, chest pain or palpitations. Remains comfortable with oxygen at 2 L per minute per nasal cannula. Active Medications Generic Name Dose Route Start Last Admin Trade Name Freq PRN Reason Stop Dose Admin Hydrocodone Bitart/Acetaminophen 1 tab 08/11/18 19:00 [place] 5/325 PO Q4H PRN PAIN SCALE 1 TO 5 Albuterol 1 ampul 08/10/18 20:00 08/18/18 08:38 Duoneb Neb (Ciaran) NEB Not Given TID NEB CIARAN Albuterol 1 ampul 08/10/18 17:13 08/17/18 05:51 Duoneb Neb (Prn) NEB 1 ampul Q2HR NEB PRN Administration SHORTNESS OF BREATH Amlodipine Besylate 5 mg 08/16/18 09:00 08/18/18 09:03 Norvasc PO 5 mg DAILY CIARAN Administration Apixaban 2.5 mg 08/14/18 21:00 08/18/18 09:03 Eliquis PO 2.5 mg BID CIARNA Administration Levothyroxine Sodium 50 mcg 08/15/18 06:00 08/18/18 06:01 Synthroid PO 50 mcg DAILY@0600 CIARAN Administration Lorazepam 0.25 mg 08/14/18 18:20 08/16/18 01:14 Ativan PO 0.25 mg Q8H PRN Administration ANXIETY AND/OR AGITATION Ondansetron HCl 4 mg 08/05/18 02:03 08/11/18 03:12 Zofran Inj IV.PUSH 4 mg Q6H PRN Administration NAUSEA OR VOMITING Pantoprazole Sodium 40 mg 08/15/18 09:00 08/18/18 09:03 Protonix PO 40 mg DAILY CIARAN Administration Potassium Chloride 10 meq 08/17/18 21:00 08/18/18 09:03 Klor-Con 10 PO 10 meq BID CIARAN Administration Sodium Chloride 2 ml 08/05/18 21:00 08/17/18 21:50 Ns Flush IV.FLUSH 2 ml BID CIARAN Administration Sodium Chloride 2 ml 08/05/18 09:25 08/06/18 13:32 Ns Flush IV.FLUSH 2 ml PRN PRN Administration FLUSH AFTER USING IV ACCESS Trazodone HCl 25 mg 08/16/18 21:00 08/17/18 21:46 Desyrel PO 25 mg HS CIARAN Administration Physical Exam Vital signs: Vital Signs 08/17/18 11:31 08/17/18 12:00 08/17/18 16:00 Temperature 97.3 F L 97.8 F Pulse Rate 113 H 87 82 Respiratory Rate 16 20 20 Blood Pressure 159/70 H 132/63 Pulse Oximetry 99 96 Pulse Oximetry [Resting on Room Air] Pulse Oximetry [Resting with Oxygen] 08/17/18 19:39 08/17/18 20:00 08/18/18 00:00 Temperature 98.8 F 98.2 F Pulse Rate 91 H 87 96 H Respiratory Rate 18 Blood Pressure 162/70 H 142/69 H Pulse Oximetry 99 99 97 Pulse Oximetry [Resting on Room Air] Pulse Oximetry [Resting with Oxygen] 08/18/18 08:29 08/18/18 09:43 Temperature 98.3 F Pulse Rate 90 Respiratory Rate 20 Blood Pressure 158/71 H Pulse Oximetry 97 Pulse Oximetry [Resting on Room Air] 87 L Pulse Oximetry [Resting with Oxygen] 95 Intake & Output 08/17/18 08/18/18 08/18/18 18:59 06:59 18:59 Output Total Balance -7 / -7 Weight 158 lb 15.253 oz Output: Urine Stool / Other: # Voids 5 Date of Last Bowel Movement 08/17/18 08/17/18 - Routine Respiratory Exam Comments: Clear to auscultation but moderately severe reduced air exchange bilaterally - Routine Cardiovascular Exam Comments: IRRR - Routine Abdominal Exam Comments: mild to moderate distention, soft, nontender with bowel sounds present, no masses - Routine Extremities Exam Comments: no edema. No calf tenderness or Homans sign Results - Labs CBC & Chem 7: 08/15/18 06:35 08/17/18 04:41 Assessment and Plan - Assessment (1) Small bowel obstruction Code(s): K56.609 - Unspecified intestinal obstruction, unspecified as to partial versus complete obstruction Status: Resolved Plan: Patient is status post lysis of adhesions. Tolerating diet well. Bowels moving. (2) Hypokalemia Code(s): E87.6 - Hypokalemia Status: Resolved Plan: Corrected. Will reduce potassium supplement. Follow potassium level as outpatient (3) Chronic atrial fibrillation Code(s): I48.2 - Chronic atrial fibrillation Status: Chronic Plan: Ventricular rate is well controlled. Continue with Eliquis. (4) Chronic obstructive pulmonary disease Code(s): J44.9 - Chronic obstructive pulmonary disease, unspecified Status: Chronic Plan: Respiratory status is improved. Continue with nebulizer treatments. Continue with oxygen continuously at home. (5) Hypertension Code(s): I10 - Essential (primary) hypertension Status: Chronic Plan: Blood pressure under better control today. Continue with current dosage of medication. Will follow blood pressure as an outpatient (6) GERD (gastroesophageal reflux disease) Code(s): K21.9 - Gastro-esophageal reflux disease without esophagitis Status: Chronic Plan: Continue pantoprazole. (7) Hypothyroidism Code(s): E03.9 - Hypothyroidism, unspecified Status: Chronic Plan: Continue levothyroxine (8) Ileitis Code(s): K52.9 - Noninfective gastroenteritis and colitis, unspecified Status : Resolved Plan: Resolved. Status post lysis of adhesions. (9) Acute delirium Code(s): R41.0 - Disorientation, unspecified Status: Resolved Plan: Improved. Will follow. Mental status currently at baseline - Attending Attestation patient was offered snf facility placement for progressive rehabilitation, however, she declines. She will be discharged home today with home health. She will have her son stay with her for the next 3-5 days in order to have someone with her 24 hours a day. (4) Chronic obstructive pulmonary disease Qualifiers: COPD type: emphysema Emphysema type: panlobular Qualified Code(s): J43.1 - Panlobular emphysema (5) Hypertension Qualifiers: Hypertension type: essential hypertension Qualified Code(s): I10 - Essential (primary) hypertension (6) GERD (gastroesophageal reflux disease) Qualifiers: Esophagitis presence: without esophagitis Qualified Code(s): K21.9 - Gastro- esophageal reflux disease without esophagitis (7) Hypothyroidism Qualifiers: Hypothyroidism type: unspecified Qualified Code(s): E03.9 - Hypothyroidism, unspecified
--- NOTE | 2018-08-18 10:03 | P.DS ---
Date of admission: 08/05/18 02:03 Primary care physician: Rajeev Herman MD Attending physician on discharge: Rajeev Herman Anticipated date of discharge: 08/18/18 Brief History from admission: 87-year-old white female had sudden onset of abdominal pain with nausea and vomiting on the afternoon prior to admission. Symptoms persisted. She contacted the undersigned physician who instructed her to report to the emergency department for further evaluation and treatment. In the emergency department, the patient had an abdominal x-ray and CT scan of the abdomen and pelvis which was consistent with small bowel obstruction at the level of the proximal ileum. The patient was made n.p.o. and will be admitted for treatment of a small bowel obstruction. DS: Diagnosis - Discharge Diagnosis (1) Small bowel obstruction Status: Resolved Diagnosis: Principal (2) Hypokalemia Status: Resolved Diagnosis: Secondary (3) Chronic atrial fibrillation Status: Chronic Diagnosis: Secondary (4) Chronic obstructive pulmonary disease Status: Chronic Diagnosis: Secondary (5) Hypertension Status: Chronic Diagnosis: Secondary (6) GERD (gastroesophageal reflux disease) Status: Chronic Diagnosis: Secondary (7) Hypothyroidism Status: Chronic Diagnosis: Secondary (8) Ileitis Status: Resolved Diagnosis: Secondary (9) Acute delirium Status: Resolved Diagnosis: Secondary DS: Summary Hospital Course: the patient was admitted to a medical surgical bed. She was made n.p.o. The patient was seen in consultation by general surgery, Dr. Scott, who recommended conservative treatment initially. The patient was placed on IV fluids. A small bowel series was ordered. It revealed small bowel obstruction at the level of the ileum. After the small bowel series, the patient began to experience frequent emesis. At that time, an NG tube was placed and was attached to low intermittent suction. The patient was maintained on conservative measures, however, bowel function did not improve.on August 12, 2018, the patient was taken to the OR and had a laparoscopic exploratory laparotomy. He was found to be an adhesion causing the small bowel obstruction. The patient underwent lysis of adhesions. Postoperatively, the patient did well. After 3 days, she had return of bowel function. The NG tube was discontinued and her diet was advanced. She was seen by physical therapy and ambulated in the halls using a walker. Throughout the remainder of the hospitalization, the patient's condition continued to improve. Her bowel function remained adequate. She had no nausea or vomiting. Oral intake was good. Urine output was good. The patient's blood pressure was elevated intermittently during the hospitalization. She was placed on amlodipine 5 mg daily and the blood pressure came under better control. She did also have hypokalemia which was corrected using IV and oral potassium supplements. On the day of discharge her potassium level is normal. The patient does have a long history of moderately severe COPD. Postoperatively , she remained on oxygen at 2 L/m per nasal cannula with oxygen saturations >94% . The patient had been previously using oxygen only at night, however, without the oxygen she had significant dyspnea on exertion during the day. The patient was maintained on nebulizer treatments with albuterol. She denied any particular cough or sputum production. On the day of discharge the patient denied any complaints. She had a strong desire to be discharged home. She was offered placement in a nursing home facility for progressive rehabilitation since she does live alone, however, she declined. She will be discharged home in good condition with home health followup. She will arrange for her son to stay with her for several days after discharge. She was instructed to notify the undersigned physician for any recurrent abdominal pain, nausea or vomiting. She would followup with the undersigned physician on August 31, 2018 at 1:30 PM which was an appointment that was already scheduled. She was given a followup appointment with Gen. surgery as well. She would perform activities as tolerated. The patient was provided with a 2 wheeled walker and she will be provided with additional portable oxygen tanks to use as needed if she needed to leave her home. - Time Spent with Patient Total time spent providing and/or coordinating discharge services: Less than 30 minutes - Quality: VTE Deep Vein Thrombosis/Pulmonary Embolism Present on Admission: No Exam Vital signs: Vital Signs 08/17/18 11:31 08/17/18 12:00 08/17/18 16:00 Temperature 97.3 F L 97.8 F Pulse Rate 113 H 87 82 Respiratory Rate 16 20 20 Blood Pressure 159/70 H 132/63 Pulse Oximetry 99 96 Pulse Oximetry [Resting on Room Air] Pulse Oximetry [Resting with Oxygen] 08/17/18 19:39 08/17/18 20:00 08/18/18 00:00 Temperature 98.8 F 98.2 F Pulse Rate 91 H 87 96 H Respiratory Rate 18 18 Blood Pressure 162/70 H 142/69 H Pulse Oximetry 99 99 97 Pulse Oximetry [Resting on Room Air] Pulse Oximetry [Resting with Oxygen] 08/18/18 08:29 08/18/18 09:43 Temperature 98.3 F Pulse Rate 90 Respiratory Rate 20 Blood Pressure 158/71 H Pulse Oximetry 97 Pulse Oximetry [Resting on Room Air] 87 L Pulse Oximetry [Resting with Oxygen] 95 Intake & Output 08/17/18 08/18/18 08/18/18 18:59 06:59 18:59 Output Total Balance -7 / -7 Weight 158 lb 15.253 oz Output: Urine Stool Other: # Voids 5 Date of Last Bowel Movement 08/17/18 08/17/18 Results Procedures completed during hospitalization: 08/12/2018-laparoscopic lysis of adhesions-Dr. Scott - Impressions ITS Impressions Abdomen/Pelvis CTA 08/05/18 00:00 CONCLUSION: 1. 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 Celiac and FLETCHER are patent. Central SMV and portal vein are patent. Therefore, mesenteric ischemia as an etiology for patient's small bowel obstruction and proximal ileitis is unlikely. 2. 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 3. Remainder of the exam is unchanged from earlier abdominal CT exam with redemonstration of acute small bowel obstruction secondary to severe wall thickening involving the proximal ileum in the central pelvis. No evidence for perforation, bowel infarction or abscess at this time. Chest X-Ray 08/05/18 00:00 CONCLUSION: No acute cardiopulmonary disease demonstrated. Mild chronic interstitial opacities are stable. Abdomen/Pelvis CT 08/05/18 23:49 CONCLUSION: 1. Approximately 10 cm long segment of severe wall thickening involving the proximal ileum within the pelvic cavity and with associated acute small bowel obstruction. The etiology of wall thickening is uncertain. Infectious, inflammatory and neoplastic etiologies are all in the differential. 2. Associated trace ascites. Nothing organized or drainable. No free air. 3. Diverticulosis of the colon without diverticulitis. 4. Patchy cortical thinning/scarring and cysts of both kidneys. There are also nonobstructing stones of the right kidney. 5. Bilateral adrenal nodularity, indeterminate but statistically most likely benign adenomatous change. 6. Aortoiliac atherosclerosis. No aneurysm seen. 7. Trace lung base atelectasis. 8. Coronary artery calcification. Visualized heart appears enlarged, mostly the left atrium. 9. Small hiatal hernia. Small Bowel X-Ray 08/07/18 00:00 CONCLUSION: Multiple dilated loops of small bowel. Markedly delayed transit of contrast in the small bowel. Contrast only progresses to the mid small bowel at 5 hours. Findings are suspicious for possible small bowel obstruction. Delayed films could be obtained to evaluate progress of contrast. Abdomen X-Ray 08/16/18 00:00 CONCLUSION: Persistent small bowel distention. Nasogastric tube is not evident. Discharge Plan - Discharge Disposition Patient Disposition: 01 Discharge Home - Discharge Condition Condition: Stable - Discharge Order Discharge Orders: Discharge Order (Routine); Ordered 08/18/18 Ordered By: Rajeev Herman - Discharge Details Anticipated Discharge Date: 08/18/18 - Physicians Team Primary Care Provider: Rajeev Herman Attending Provider: Rajeev Herman Other Providers: Hussein Higuera MD ; Myles Elizalde MD ; Franco Scott MD
== END 2018-08-18 12:08 ==
LOC: NEPC 21:34 → NEDA 08-05 02:03 → NEDH 08-05 07:21 → N07 08-05 10:10
PROVIDERS: ADMIT Family Medicine; ATTEND Family Medicine